=== PATIENT | female | born 1955 | race Caucasian/White ===

== ENCOUNTER 2020-07-08 07:07 | Emergency (ER) | payer BC, SELFPAY ==
--- OUTSIDE RECORDS SUMMARY | 2020-07-08 07:08 | XMS REPORT | Clinical Summary ---
:1955 Author Organization [facility] Address [address] [place] [address] Care Team Providers Name Role Phone Srinivasan Stevenson MD Primary Care Provider Allergies No Known Active Allergies Medications Medication Sig Dispensed Refills Start Date End Date Status levothyroxine Take 75 mcg by 0 A ctive (SYNTHROID, LEVOXYL) 75 mouth. mcg tablet melatonin 10 mg capsule Take 3 mg by 0 Active mouth. NEUPRO 8 mg/24 hour 0 08/01/2017 Active patch 24 hour dexmethylphenidate XR TK 2 CS PO QAM. 0 05/26/2017 Active (FOCALIN XR) 10 MG 24 hr capsule AmANTadine (SYMMETREL) TK ONE C PO BID 3 07/01/2017 Active 100 mg capsule FOR 1 WEEK THEN TID D THEREAFTER AZILECT 1 mg tablet TK 1 T PO QD 2 08/01/2017 Active carbidopa-levodopa TK 1 AND 1/2 TS 3 07/28/2017 Active (SINEMET) 25-100 mg per PO FID tablet entacapone (COMTAN) 200 TK 1 T PO 6 3 07/01/2017 Active mg tablet TIMES D Active Problems Problem Noted Date Elevated hemoglobin A1c 08/05/2017 Overview: Concerned about previous numbers being high Last Assessment & Plan: Recheck A1c and follow up in 3 months Parkinson disease Overview: dx 4 years ago; responding to treatment; aaliyah - seebijan Monk - Last Assessment & Plan: Per neurology Elevated BP without diagnosis of hypertension Overview: was on bp meds and came off with the study drug Last Assessment & Plan: Provided log; monitor bp and will restart losartan if bp is >140/90 Disease of thyroid gland Overview: levo 75mcg dose has been stable. Last Assessment & Plan: 1. L-thyroxine per orders. 2. Recheck thyroid function tests 3. Instructed not to take multivitamins or iron within 4 hours of taking thyroid medications. Surgical History Surgery Date Site/Laterality Comments COLONOSCOPY 08/02/2011 - 08/01/2012 overdue fo r repeat - Medical History Medical History Date Comments Parkinson disease (HCC) dx 4 years ago; responding to treatment; sinemet - sees Dr. Monk - Disease of thyroid gland levo 75mcg dose has been stable. Hypertension was on bp meds and c julianna off with the study drug Family History Medical History Relation Name Comments Colon cancer Father Lung cancer Mother stage 4 - Relation Name Status Comments Father Mother Social History Tobacco Use Types Packs/Day Years Used Date Never Smoker Smokeless Tobacco: Never Used Alcohol Use Drinks/Week oz/Week Comments Yes 5 Glasses of wine 5.0 Sex Assigned at Date Recorded Not on file Last Filed Vital Signs Not on file Plan of Treatment Health Maintenance Due Date Last Done Comments CERVICAL CANCER SCREENING 1978 BREAST CANCER SCREENING 2007 COLONOSCOPY SCREENING 2007 SHINGLES VACCINES (#1) 2007 INFLUENZA VACCINE 03/02/2020 Results Not on fileafter 07/08/2019 (Work) Advance Directives For more information, please contact: [phone] Type Date Recorded 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
--- OUTSIDE RECORDS SUMMARY | 2020-07-08 07:09 | XMS REPORT | Continuity of Care Document ---
:1955 Author Organization [facility] t Address [address] [place] [address] Care Team Providers Name Role Phone Srinivasan Stevenson MD Primary Care Physician Rito Chávez Attending Clinician Augusto JAUREGUI P Attending Clinician Halie JAUREGUI Attending Clinician 1, Fellow Attending Clinician MIRANDA Attending Clinician Unavailable MIRANDA Admitting Clinician Unavailable Problems Condition Condition Condition Status Onset Resolution Last Treating Co mments Source Name Details Category Date Date Treatment Clinician Date Parkinson' Parkinson' Disease Active [facility] disease s disease 02-17 Luke s - with EBS with EBS 00:00: Medica l (electrica (electrica 00 Ce nter l brain l brain stimulatio stimulatio n) n) Parkinson Parkinson Disease Active [facility] Center Elevated Elevated Disease Active Overview: Carlos medina hemoglobin hemoglobin 1-04 Concerned [facility] A1c A1c 00:00: about st 00 previous numbers being highLast Assessmen t & Plan: Recheck A1c and follow up in 3 months Elevated Elevated Disease Active Overview: Carlos medina BP without BP without was on bp [facility]i diagnosis diagnosis meds and st of of came off hypertensi hypertensi with the on on study drugLast Assessmen t & Plan: Provided log; monitor bp and will restart losartan if bp is >140/90 Disease of Disease of Disease Active Overview : [place] thyroid thyroid levo Methodi gland gland 75mcg st dose has been stable. Last Assessmen t & Plan: 1. L-thyroxi ne per orders.2. Recheck thyroid function tests3. Instructe d not to take multivita mins or iron within 4 hours of taking thyroid medicatio ns. Allergies, Adverse Reactions, Alerts This patient has no known allergies or adverse reactions. Family History Family Member Diagnosis Comments Start Date Stop Date Source Natural father Colon cancer [place] [facility] Natural mother Lung cancer [facility] ethodi Social History Social Habit Start Date Stop Date Quantity Comments Source Sex Assigned At [facility] Tobacco use and 2018-03-03 2018-03-03 Never used [facility] - exposure 00:00:00 00:00:00 [facility] Alcohol intake 2018-03-03 2018-03-03 Current drinker [facility] - 00:00:00 00:00:00 of alcohol [facility] Center (finding) Smoking Status Start Date Stop Date Source Never smoker [facility] Medications Ordered Filled Start Stop Current Ordering Indication Dosage Frequency Signature Comments Components Source Medication Medication Date Date Medication? Clinician (SIG) Name Name rasagiline Yes QD Take by [facility] (AZILECT) 1 03-02 mouth [facility] - mg Tab 16:26: daily. Medical [address] [place] [address] rotigotine Yes 8mg QD Place [address] (NEUPRO) 8 03-02 onto the [facility] - mg/24 hour 16:26: skin Medical PT24 24 daily. Center levothyroxi Yes 50ug Take [address] ne 8- mcg by Lucio - (SYNTHROID, 16:26: mouth Medic al LEVOTHROID) 24 Every Center 50 MCG morning on tablet an empty stomach. carbidopa-l Yes 1{tbl} Take [address] evodopa 03-02 tablet by Lucio - (SINEMET) 16:26: mouth Medical 25-100 mg 24 every 2 Center per tablet (two) hours . entacapone Yes 200mg Q.[id number] Take [address] (COMTAN) 03-02 [id number] mg by Luke s - 200 mg 16:26: 7D mouth 6 Medical tablet 24 (six) Center times daily. carbidopa-l Yes parkinsonis 1{tbl} QD Take [address] evodopa 8- m tablet by [facility] - (SINEMET 16:26: mouth Medical CR) 50-200 24 nightly. Cente r mg per tablet melatonin 3 Yes 6mg QD Take [address] mg Tab 03-02 by mouth [facility] - tablet 16:26: nightly . Medica l 24 Center loratadine Yes allergic 10mg QD Take [address] (CLARITIN) 03-02 rhinitis by mouth L ukes - 10 mg 16:26: daily. Medical tablet 24 Center amoxicillin Yes Q.5D Take by [facility] /potassium 03-02 mouth 2 [facility] - clav 15:56: (two) Medical (AUGMENTIN 21 times Center ORAL) daily. levothyroxi Yes 75ug Take 75 [address]on ne 1-04 mcg by [facility]i (SYNTHROID, 13:23: mouth. st LEVOXYL) 75 18 mcg tablet melatonin Yes 3mg Take 3 mg Johanny ston 10 mg 1-04 by mouth. [facility]i capsule 13:23: st 18 NEUPRO 8 2016-08 Yes Srinivasa mg/24 hour 2-31 Methodi patch 24 00:00: st hour 00 AZILECT 1 2016-08 Yes TK 1 T PO Johanny ston mg tablet 2-31 QD Methodi 00:00: st 00 carbidopa-l 2016-08 Yes TK 1 AND Carlos [place] evodopa 2-27 1/2 TS PO Methodi (SINEMET) 00:00: FID st 25-100 mg 00 per tablet AmANTadine 2016-08 Yes TK ONE C Johanny ston (SYMMETREL) 1-30 PO BID Metho di 100 mg 00:00: FOR [address] capsule 00 THEN TID D THEREAFTER entacapone 2016-08 Yes TK 1 T PO [place] (COMTAN) 1-30 6 TIMES D Method i 200 mg 00:00: st tablet 00 dexmethylph 2016-08 Yes TK 2 CS PO Bernabe enidate XR 0-25 QAM. Methodi (FOCALIN 00:00: st XR) 10 MG 00 24 hr capsule Procedures This patient has no known procedures. Plan of Care Planned Activity Planned Date Details Comments Source Future Scheduled Test 2020-04-[address] [facility] - 00:00:00 (#1) [code = [facility] Center INFLUENZA VACCINE (#1)] Future Scheduled Test 2020-03-02 INFLUENZA VACCINE [place] [facility] 00:00:00 [code = INFLUENZA VACCINE] Future Scheduled Test 2007 BREAST CANCER [place] [facility] 00:00:00 SCREENING [code = BREAST CANCER SCREENING] Future Scheduled Test 2007 COLONOSCOPY [place] [facility] 00:00:00 SCREENING [code = COLONOSCOPY SCREENING] Future Scheduled Test 2007 SHINGLES VACCINES [place] [facility] 00:00:00 (#1) [code = SHINGLES VACCINES (#1)] Future Scheduled Test [address] [facility] - 00:00:00 (procedure) [code = [facility] 86019507] Future Scheduled Test 1978 Screening for [place] [facility] 00:00:00 malignant neoplasm of cervix (procedure) [code = 898132924] Future Scheduled Test [facility] malignant neoplasm Medical C enter of cervix (procedure) [code = 225505771] Future Scheduled Test [facility] malignant neoplasm Medical C enter of breast (procedure) [code = 302800885] Future Scheduled Test 1955 [facility] malignant neoplasm Medical C enter of colon (procedure) [code = 738122165] Future Appointment 2020-07-[address] [facility] - 13:00:00 , [address] [facility] [address], [address], [place] [address] Future Appointment 2020-07-[address] [facility] - 13:00:00 , [address] [facility] [address], [address], [place] [address] Encounters Start End Encounter Admission Attending Care Care Encounter Source Date/Time Date/Time Type Type Clinicians Facility Department ID 2020-06-21 2020-06-21 Office VEE Tuttle 1.2.840.114 [id number] 14:06:57 16:16:33 Visit Christopher AMBULATOR [id number] Rito Y 0.2.7.2.686 [id number] 2020-06-21 2020-06-21 Office VEE Casas 1.2.840.114 [id number] 12:31:48 12:41:48 Visit Christopher AMBULATOR 350.1.13.21 P Y 0.2.7.2.686 [id number] 2020-05-23 2020-05-23 Office VEE Casas 1.2.840.114 [id number] 10:24:43 11:57:55 Visit Christopher AMBULATOR 350.1.13.21 P Y 0.2.7.2.686 [id number] 300 2020-05-22 2020-05-22 Office VioletpauVEE 1.2.840.114 [id number] 09:52:20 13:31:33 Visit Kalia AMBULATOR 350.1.13.21 Y 0.2.7.2.686 [id number] 800 2020-05-02 2020-05-02 Office VEE Casas 1.2.840.114 [id number] 10:25:40 10:35:40 Visit Christopher AMBULATOR 350.1.13.21 P Y 0.2.7.2.686 [id number] 300 2020-02-21 2020-02-21 Office VEE Ambrose 1.2.840.114 [id number] 10:55:48 16:32:49 Visit Kalia AMBULATOR 350.1.13.21 Y 0.2.7.2.686 [id number] 800 2020-01-04 2020-01-04 Office VEE Ambrose 1.2.840.114 [id number] 10:47:05 13:10:50 Visit Kalia AMBULATOR 350.1.13.21 Y 0.2.7.2.686 [id number] 800 2019-11-22 2019-11-22 Office VioletpauVEE 1.2.840.114 [id number] 07:53:06 10:26:01 Visit Kalia AMBULATOR 350.1.13.21 Y 0.2.7.2.686 [id number] 800 2019-10-04 2019-10-04 Office VEE Ambrose 1.2.840.114 [id number] 10:20:28 13:44:29 Visit Kalia AMBULATOR 350.1.13.21 Y 0.2.7.2.686 [id number] 800 2019-09-20 2019-09-20 Office 1, Neuro BCM 1.2.840.114 [id number] 09:48:24 13:20:20 Visit Fellow AMBULATOR 350.1.13.21 Y 0.2.7.2.686 [id number] 800 2019-09-13 2019-09-13 Office VEE Ambrose 1.2.840.114 [id number] 09:48:16 13:56:32 Visit Kalia AMBULATOR 350.1.13.21 Y 0.2.7.2.686 [id number] 800 2019-09-06 2019-09-06 Office VEE Ambrose 1.2.840.114 [id number] 09:55:15 11:25:00 Visit Kalia AMBULATOR 350.1.13.21 Y 0.2.7.2.686 [id number] 800 2019-08-28 2019-08-28 Office VEE Ambrose 1.2.840.114 [id number] 11:18:25 11:33:25 Visit Kalia AMBULATOR 350.1.13.21 Y 0.2.7.2.686 [id number] 800 2019-08-24 2019-08-24 Office VEE Ambrose 1.2.840.114 [id number] 09:04:50 09:34:50 Visit Kalia AMBULATOR 350.1.13.21 Y 0.2.7.2.686 [id number] 800 2019-08-23 2019-08-23 Office VEE Ambrose 1.2.840.114 [id number] 08:16:43 08:46:43 Visit Kalia AMBULATOR 350.1.13.21 Y 0.2.7.2.686 [id number] 800 2019-04-28 2019-04-28 Office VEE Ambrose 1.2.840.114 [id number] 14:19:30 15:49:19 Visit Kalia AMBULATOR 350.1.13.21 Y 0.2.7.2.686 [id number] Results Test Description Test Time Test Comments [facility] 2018[facility]03[facility]02 [facility] FINAL REPORT PATIENT ID: WITHOUT CONTRAST 11:42:[id number] head without contrast [facility] protocol 03/02/2018 11:39 AM CLINICAL HISTORY: DBS leads TECHNIQUE: With zero gantry angle, helical axial [address] images through the head were obtained. This examination was performed according to our departmental dose optimization program, which includes automated exposure control, adjustment of the mA and/or kV according to patient size, and/or use of iterated reconstruction technique. COMPARISON: 02/16/2018 FINDINGS: There is no hemorrhage, extra-axial collection, mass, hydrocephalus, or midline shift. Bilateral deep brain stimulator electrodes terminate just lateral to the thalamomesencephalic junction bilaterally. There is generalized parenchymal volume loss. The visualized paranasal sinuses and mastoid air cells are well aerated. The skull is intact. IMPRESSION: Deep brain stimulator electrode placement as discussed. Signed: Jason Trevizo MDReport Verified Date/Time: 03/02/2018 11:42:17 Reading Location: [address] Neuro Reading Room ALYSIS W/ REFLEX URINE CULTURE 2018-02-17 18:46:00 Test Item Value Reference Range Interpretation Comme nts COLOR (BEAKER) (test code = 470) Yellow CLARITY (BEAKER) (test code = 469) Clear SPECIFIC GRAVITY UA (BEAKER) (test code = 468) 1.022 1.001-1 .035 PH UA (BEAKER) (test code = 467) 5.5 5.0-8.0 PROTEIN UA (BEAKER) (test code = 464) Negative Negative GLUCOSE UA (BEAKER) (test code = 365) 50 mg/dL Negative A KETONES UA (BEAKER) (test code = 371) 20 mg/dL Negative A BILIRUBIN UA (BEAKER) (test code = 462) Negative Negative BLOOD UA (BEAKER) (test code = 461) Negative Negative NITRITE UA (BEAKER) (test code = 465) Negative Negative LEUKOCYTE ESTERASE UA (BEAKER) (test code = 466) Negative Negat karol UROBILINOGEN UA (BEAKER) (test code = 463) 0.2 mg/dL 0.2-1.0 RBC UA (BEAKER) (test code = 519) < /HPF WBC UA (BEAKER) (test code = 520) < /HPF BACTERIA (BEAKER) (test code = 517) Rare SOURCE(BEAKER) (test code = 2795) BASIC METABOLIC [id number] 18:45:00 Test Item Value Reference Range Interpretation Comments SODIUM (BEAKER) 134 meq/L 136-145 L (test code = 381) POTASSIUM (BEAKER) 3.8 meq/L 3.5-5.1 (test code = 379) CHLORIDE (BEAKER) 106 meq/L 98-107 (test code = 382) CO2 (BEAKER) (test 20 meq/L 22-29 L code = 355) BLOOD UREA NITROGEN 14 mg/dL 7-21 (BEAKER) (test code = 354) CREATININE (BEAKER) 0.72 mg/dL 0.57-1.25 (test code = 358) GLUCOSE RANDOM 121 mg/dL 70-105 H (BEAKER) (test code = 652) CALCIUM (BEAKER) 9.1 mg/dL 8.4-10.2 (test code = 697) EGFR (BEAKER) (test 82 mL/min/1.73 ESTIMA MIGUEL GFR IS code = 1092) sq m NOT ACCURATE CREATININE CLEARANCE IN PREDICTING GLOMERULAR FILTRATION RATE . ESTIMATED GFR I S NOT APPLICABLE FOR DIALYSIS PATIEN TS. CBC W/PLT COUNT & AUTO [id number] 11:36:00 Test Item Value Reference Range Interpretation Comments WHITE BLOOD CELL COUNT (BEAKER) 10.6 K/ L 3.5-10.5 H (test code = 775) RED BLOOD CELL COUNT (BEAKER) 4.53 M/ L 3.93-5.22 (test code = 761) HEMOGLOBIN (BEAKER) (test code = 12.4 GM/DL 11.2-15.7 410) HEMATOCRIT (BEAKER) (test code = 38.4 % 34.1-44.9 411) MEAN CORPUSCULAR VOLUME (BEAKER) 84.8 fL 79.4-94.8 (test code = 753) MEAN CORPUSCULAR HEMOGLOBIN 27.4 pg 25.6-32.2 (BEAKER) (test code = 751) MEAN CORPUSCULAR HEMOGLOBIN CONC 32.3 GM/DL 32.2-35.5 (BEAKER) (test code = 752) RED CELL DISTRIBUTION WIDTH 14.0 % 11.7-14.4 (BEAKER) (test code = 412) PLATELET COUNT (BEAKER) (test 233 K/CU MM 150-450 code = 756) MEAN PLATELET VOLUME (BEAKER) 10.2 fL 9.4-12.3 (test code = 754) NUCLEATED RED BLOOD CELLS 0 /100 WBC 0-0 (BEAKER) (test code = 413) NEUTROPHILS RELATIVE PERCENT 89 % (BEAKER) (test code = 429) LYMPHOCYTES RELATIVE PERCENT 5 % (BEAKER) (test code = 430) MONOCYTES RELATIVE PERCENT 6 % (BEAKER) (test code = 431) EOSINOPHILS RELATIVE PERCENT 0 % (BEAKER) (test code = 432) BASOPHILS RELATIVE PERCENT 0 % (BEAKER) (test code = 437) NEUTROPHILS ABSOLUTE COUNT 9.41 K/ L 1.56-6.13 H (BEAKER) (test code = 670) LYMPHOCYTES ABSOLUTE COUNT 0.55 K/ L 1.18-3.74 L (BEAKER) (test code = 414) MONOCYTES ABSOLUTE COUNT (BEAKER) 0.61 K/ L 0.24-0.36 H (test code = 415) EOSINOPHILS ABSOLUTE COUNT 0.01 K/ L 0.04-0.36 L (BEAKER) (test code = 416) BASOPHILS ABSOLUTE COUNT (BEAKER) 0.02 K/ L 0.01-0.08 (test code = 417) IMMATURE GRANULOCYTES-RELATIVE 0 % 0-1 PERCENT (BEAKER) (test code = 2801) CT, BRAIN, WITHOUT [id number] 15:11:00FINAL REPORT CT head without contrast 02/16/2018 3:09 PM CLINICAL HISTORY: Parkinsons dz, typical, levodopa responsives/p DBS TECHNIQUE: Axial noncontrast CT images through the head were obtained. This examination was performed according to our departmental dose optimization program, which includes automated exposure control, adjustment of the mA and/or kV according to patient size, and/or use of iterated reconstruction technique. COMPARISON: 02/16/2018 at 0801 FINDINGS: Newly placed deep brain stimulator electrodes terminate in the anteromedial temporal lobes bilaterally. There is no hemorrhage, mass, hydrocephalus, or midline shift. There is small volume pneumocephalus without mass effect. There is no concerning subgaleal collection. There is chronic left sphenoid sinusitis. The remaining visualized paranasal sinuses and tympanomastoid cavities are well- aerated. The skull is intact. IMPRESSION: Bilateral deep brain stimulator electrode placement as discussed. Signed: Jason Trevizo Verified Date/Time: 02/16/2018 15:11:14 Reading Location: [address] Neuro Reading Room WORKFORCE ADVISOR IN OR/30 MINUTE [id number] 14:08:00Reason for exam:- >Parkinsons DiseaseFINAL REPORT Fluoroscopy and CT stereotaxis 583 views intraoperative 02/16/2018 2:07 PM CLINICAL HISTORY: Instrument localization COMPARISON: None available IMPRESSION: Please correlate imaging report findings with the procedure note prepared by Dr. Martinez, as an intra-procedure imaging consultation was not requested. Reported fluoroscopy time: 19.2 seconds. Reported DLB: 715.16 mGycm. Signed: Jason Trevizo Verified Date/Time: 02/16/2018 14:08:01 Reading Location: [address] Neuro Reading Room CT, BRAIN, WITHOUT [id number] 08:16:00Please perform stealth protocol with 1mm cutsFINAL REPORT CT head without contrast Stealth protocol 02/16/2018 8:15 AM CLINICAL HISTORY: parkinson disease TECHNIQUE: With zero gantry angle, helical axial [address] images through the head were obtained. This examination was performed according to our departmental dose optimization program, which includes automated exposure control, adjustment of the mA and/or kV according to patient size, and/or use of iterated reconstruction technique. COMPARISON: MRI brain 02/04/2018 FINDINGS: There is no hemorrhage, extra-axial collection, mass, hydrocephalus, or midline shift.There is generalized parenchymal volume loss. There is chronic left sphenoid sinusitis. The remaining visualized paranasal sinuses and tympanomastoid cavities are well-aerated. The orbits, face, and skull are unremarkable. IMPRESSION: Stealth neuronavigation study. Signed: Jason Trevizo Verified Date/Time: 02/16/2018 08:16:15 Reading Location: [address] Neuro Reading Room MR, BRAIN, WITHOUT [id number] 15:03:00FINAL REPORT MRI Brain without contrast Clinical History: Parkinson's diseaseTechnique: MRI of the brain utilizing the DBS protocol including diffusion tensor imaging, with axial T2, FLAIR, GRE, DWI; sagittal and coronal T1-weighted images. Comparisons: None Findings: There is no evidence of acute infarct or hemorrhage. There is mild periventricular and subcortical white matter T2 hyperintensity, which is nonspecific but compatible with chronic microvascular ischemic change. There is generalized parenchymal volume loss without hydrocephalus, midline shift, or apparent mass effect. There are no extra-axial fluid collections. The craniocervical junction is preserved. The major intracranial flow-voids appear patent. There is an air-fluid level in the left sphenoid sinus. IMPRESSION: No evidence of acute infarct, hemorrhage, or hydrocephalus. Acute sphenoid sinusitis. Signed:Ryder Welshort Verified Date/Time: 02/04/2018 15:03:16 Reading Location: [facility] Radiology Reading Room BASI METABOLIC [id number] 13:00:00 Test Item Value Reference Range Interpretation Comments SODIUM (BEAKER) 139 meq/L 136-145 (test code = 381) POTASSIUM (BEAKER) 4.3 meq/L 3.5-5.1 (test code = 379) CHLORIDE (BEAKER) 106 meq/L 98-107 (test code = 382) CO2 (BEAKER) (test 28 meq/L 22-29 code = 355) BLOOD UREA NITROGEN 23 mg/dL 7-21 H (BEAKER) (test code = 354) CREATININE (BEAKER) 0.89 mg/dL 0.57-1.25 (test code = 358) GLUCOSE RANDOM 96 mg/dL 70-105 (BEAKER) (test code = 652) CALCIUM (BEAKER) 9.4 mg/dL 8.4-10.2 (test code = 697) EGFR (BEAKER) (test 64 mL/min/1.73 ESTIMA MIGUEL GFR IS code = 1092) sq m NOT ACCURATE CREATININE CLEARANCE IN PREDICTING GLOMERULAR FILTRATION RATE . ESTIMATED GFR I S NOT APPLICABLE FOR DIALYSIS PATIEN TS. URINALYSIS W/ REFLEX URINE [id number] 11:28:00 Test Item Value Reference Range Interpretation Comments COLOR (BEAKER) (test code = 470) Yellow CLARITY (BEAKER) (test code = 469) Clear SPECIFIC GRAVITY UA (BEAKER) (test 1.014 1.001-1.035 code = 468) PH UA (BEAKER) (test code = 467) 6.0 5.0-8.0 PROTEIN UA (BEAKER) (test code = Negative Negative 464) GLUCOSE UA (BEAKER) (test code = Negative Negative 365) KETONES UA (BEAKER) (test code = Negative Negative 371) BILIRUBIN UA (BEAKER) (test code = Negative Negative 462) BLOOD UA (BEAKER) (test code = 461) Negative Negative NITRITE UA (BEAKER) (test code = Negative Negative 465) LEUKOCYTE ESTERASE UA (BEAKER) Moderate Negative A (test code = 466) UROBILINOGEN UA (BEAKER) (test code 0.2 mg/dL 0.2-1.0 = 463) RBC UA (BEAKER) (test code = 519) 7 /HPF WBC UA (BEAKER) (test code = 520) 5 /HPF MUCUS (BEAKER) (test code = 1574) Few SQUAMOUS EPITHELIAL (BEAKER) (test 3 /HPF code = 516) SOURCE(BEAKER) (test code = 2795) RAD, CHEST, 2 [id number] 11:25:00Reason for Exam:->parkinson's disease FINAL REPORT TECHNIQUE: Frontal and lateral views of the chest. INDICATION: 63-year-old woman with Parkinson's disease. COMPARISON: None. FINDINGS: LINES/TUBES: None. LUNGS: Thelungs are well inflated and clear. PLEURA: No pleural effusion or pneumothorax. HEART AND MEDIASTINUM: The cardiomediastinal silhouette is within normal limits. Atherosclerotic calcifications in the tortuous thoracic aorta. SOFT TISSUES AND BONES: Degenerative changes of the visualized spine. Soft tissues are unremarkable. IMPRESSION:No acute cardiopulmonary abnormalities. Signed: Douglas Dickens MDR eport Verified Date/Time: 02/04/2018 11:25:47 Reading Location: [address] Radiology Reading Room BASIC METABOLIC [id number] 11:10:00 Test Item Value Reference Range Interpretation Comments SODIUM (BEAKER) 138 meq/L 136-145 (test code = 381) POTASSIUM (BEAKER) 4.7 meq/L 3.5-5.1 (test code = 379) CHLORIDE (BEAKER) 105 meq/L 98-107 (test code = 382) CO2 (BEAKER) (test 28 meq/L 22-29 code = 355) BLOOD UREA NITROGEN 24 mg/dL 7-21 H (BEAKER) (test code = 354) CREATININE (BEAKER) 0.92 mg/dL 0.57-1.25 (test code = 358) GLUCOSE RANDOM 93 mg/dL 70-105 (BEAKER) (test code = 652) CALCIUM (BEAKER) 9.5 mg/dL 8.4-10.2 (test code = 697) EGFR (BEAKER) (test 62 mL/min/1.73 ESTIMA MIGUEL GFR IS code = 1092) sq m NOT ACCURATE CREATININE CLEARANCE IN PREDICTING GLOMERULAR FILTRATION RATE . ESTIMATED GFR I S NOT APPLICABLE FOR DIALYSIS PATIEN TS. PROTHROMBIN [id number] 10:46:00 Test Item Value Reference Range Interpretation Comments PROTIME (BEAKER) (test code = 13.3 seconds 11.7-14.7 759) INR (BEAKER) (test code = 370) 1.0 <=5.9 RECOMMENDED COUMADIN/WARFARIN INR THERAPY RANGESSTANDARD DOSE: 2.0 - 3.0 Includes: PROPHYLAXIS forvenous thrombosis, systemic embolization; TREATMENT for venous thrombosis and/or pulmonary embolus.HIGH RISK: Target INR is 2.5-3.5 for patients with mechanical heart valves.[id number] 10:46:00 Test Item Value Reference Range Interpretation Comments PROTIME (BEAKER) (test code = 13.3 seconds 11.7-14.7 759) INR (BEAKER) (test code = 370) 1.0 <=5.9 PARTIAL THROMBOPLASTIN TIME 33.4 seconds 22.5-36.0 (BEAKER) (test code = 760) RECOMMENDED COUMADIN/WARFARIN INR THERAPY RANGESSTANDARD DOSE: 2.0 - 3.0 Includes: PROPHYLAXIS forvenous thrombosis, systemic embolization; TREATMENT for venous thrombosis and/or pulmonary embolus.HIGH RISK: Target INR is 2.5-3.5 for patients with mechanical heart valves.CBC W/PLT COUNT & AUTO DIFFERENTIAL 2018-02-04 10:38:00 Test Item Value Reference Range Interpretation Comments WHITE BLOOD CELL COUNT (BEAKER) 5.2 K/ L 3.5-10.5 (test code = 775) RED BLOOD CELL COUNT (BEAKER) 4.94 M/ L 3.93-5.22 (test code = 761) HEMOGLOBIN (BEAKER) (test code = 13.1 GM/DL 11.2-15.7 410) HEMATOCRIT (BEAKER) (test code = 42.1 % 34.1-44.9 411) MEAN CORPUSCULAR VOLUME (BEAKER) 85.2 fL 79.4-94.8 (test code = 753) MEAN CORPUSCULAR HEMOGLOBIN 26.5 pg 25.6-32.2 (BEAKER) (test code = 751) MEAN CORPUSCULAR HEMOGLOBIN CONC 31.1 GM/DL 32.2-35.5 L (BEAKER) (test code = 752) RED CELL DISTRIBUTION WIDTH 14.2 % 11.7-14.4 (BEAKER) (test code = 412) PLATELET COUNT (BEAKER) (test 227 K/CU MM 150-450 code = 756) MEAN PLATELET VOLUME (BEAKER) 9.9 fL 9.4-12.3 (test code = 754) NUCLEATED RED BLOOD CELLS 0 /100 WBC 0-0 (BEAKER) (test code = 413) NEUTROPHILS RELATIVE PERCENT 61 % (BEAKER) (test code = 429) LYMPHOCYTES RELATIVE PERCENT 26 % (BEAKER) (test code = 430) MONOCYTES RELATIVE PERCENT 10 % (BEAKER) (test code = 431) EOSINOPHILS RELATIVE PERCENT 2 % (BEAKER) (test code = 432) BASOPHILS RELATIVE PERCENT 1 % (BEAKER) (test code = 437) NEUTROPHILS ABSOLUTE COUNT 3.16 K/ L 1.56-6.13 (BEAKER) (test code = 670) LYMPHOCYTES ABSOLUTE COUNT 1.33 K/ L 1.18-3.74 (BEAKER) (test code = 414) MONOCYTES ABSOLUTE COUNT (BEAKER) 0.52 K/ L 0.24-0.36 H (test code = 415) EOSINOPHILS ABSOLUTE COUNT 0.09 K/ L 0.04-0.36 (BEAKER) (test code = 416) BASOPHILS ABSOLUTE COUNT (BEAKER) 0.04 K/ L 0.01-0.08 (test code = 417) IMMATURE GRANULOCYTES-RELATIVE 1 % 0-1 PERCENT (BEAKER) (test code = 3481)
--- OUTSIDE RECORDS SUMMARY | 2020-07-08 07:09 | XMS REPORT | Clinical Summary ---
:1955 Author Organization [facility] Address [address] [place] [address] Care Team Providers Name Role Phone Isamar Green Primary Care Provider Allergies No Known Allergies Medications Medication Sig Dispensed Refills Start Date End Date Status rasagiline (AZILECT) 1 Take by mouth 0 Active mg Tab daily. rotigotine (NEUPRO) 8 Place 8 mg onto 0 Active mg/24 hour PT24 the skin daily. levothyroxine Take 50 mcg by 0 A ctive (SYNTHROID, LEVOTHROID) mouth Every 50 MCG tablet morning on an empty stomach. carbidopa-levodopa Take 1 tablet by 0 Active (SINEMET) 25-100 mg per mouth every 2 tablet (two) hours . entacapone (COMTAN) 200 Take 200 mg by 0 Active mg tablet mouth 6 (six) times daily. carbidopa-levodopa Take 1 tablet by 0 Active (SINEMET CR) 50-200 mg mouth nightly. per tabletIndications: parkinsonism melatonin 3 mg Tab Take 6 mg by 0 Active tablet mouth nightly . loratadine (CLARITIN) Take 10 mg by 0 Active 10 mg mouth daily. tabletIndications: allergic rhinitis amoxicillin/potassium Take by mouth 2 0 Active clav (AUGMENTIN ORAL) (two) times daily. 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/2018 Parkinson's disease 02/16/2018 Parkinson disease 02/16/2018 Social History Tobacco Use Types Packs/Day Years Used Date Never Smoker Smokeless Tobacco: Never Used Alcohol Use Drinks/Week oz/Week Comments Yes 8 Glasses of wine 8.0 Sex Assigned at Date Recorded Not on file Last Filed Vital Signs Not on file Plan of Treatment Date Type Specialty Care Team Description 07/15/2020 Hospital Encounter Neal Casas MD [address] [facility] [facility] [address] [place], [place] [address] [phone] 07/15/2020 Surgery Neal Casas INTERSTIM Patrick, MD [address] [facility] [facility] [address], [address] [place], [place] [address] [phone] Health Maintenance Due Date Last Done Comments BREAST CANCER SCREENING 1955 COLON CANCER SCREENING COLONOSCOPY 1955 CERVICAL CANCER SCREENING PAP ONLY (Age 21-65) 1978 LIPID PANEL 2002 INFLUENZA VACCINE (#1) 2020 Implants Implanted Type Area Process Area Supervisor Device Shelf Model / Identifier Expiration Serial / Date Lot Cover Gregory Hole Guardian 6010ans - [id number] Fracture/ Right: [employer] KATIE 01/13/2020 6010ANS / Implanted: Qty: 1 on 02/16/2018 by Harvey Burden MD at [facility] Fixation Head MED:NEUROMODULAT / ION [id number] Cover Jhonathan Hole Guardian 6010ans - [id number] Fracture/ Left: [facility] KATIE 01/10/2020 6010ANS / Implanted: Qty: 1 on 02/16/2018 by Harvey Burden MD at [facility] [employer] MED:NEUROMODULAT / ION [id number] Imp Drctnl Lead 1.7amo68am 1.5 6173ans - [id number] Neuro Right: [facility] KATIE 10/01/2019 6173ANS / Implanted: Qty: 1 on 02/16/2018 by Harvey Burden MD at [facility] Head MED:NEUROMODULAT [id number] / ION Imp Drctnl Lead [id number] 1.5 6173ans - [id number] Neuro Left: [facility] KATIE 10/01/2019 6173ANS / Implanted: Qty: 1 on 02/16/2018 by Harvey Burden MD at [facility] Head MED:NEUROMODULAT [id number] / ION Ext Flex Dbs System 8ch 60cm 6372ans - [id number] Neuro Left: ST KATIE 08/09/2019 6372ANS / Implanted: Qty: 1 on 03/02/2018 by Harvey Burden MD at [facility] Chest MED:NEUROMODULAT [id number] / ION Ext Flex Dbs System 8ch 60cm 6372ans - [id number] Neuro Left: ST KATIE 09/29/2018 6372ANS / Implanted: Qty: 1 on 03/02/2018 by Harvey Burden MD at [facility] Chest MED:NEUROMODULAT [id number] / ION Implant Infinity 7 Ipg 6662ans - [id number] Pain Left: ST KATIE 10/22/2019 6662ANS / Implanted: Qty: 1 on 03/02/2018 by Harvey Burden MD at [facility] Mgmt/Stim Chest MED:NEUROMODULAT [id number] / ulator ION Results Not on fileafter 07/08/2019 Insurance Payer Benefit Plan / Subscriber ID Effective Dates Phone Addre ss Type Group BLUE BCBS PPO POS [id number] 2014-Antonio [phone] [address] [id number] PPO CROSS/BLUE EPO CHOICE t 2 [facility] [id number] Advance Directives For more information, please contact: [phone] Code Status Date Activated Date Inactivated Comments Full Code 02/16/2018 7:56 PM 02/18/2018 10:13 PM This code status was determined by: Patient Full Code 02/16/2018 7:11 AM 02/16/2018 7:56 PM This code status was determined by: Patient
[2020-07-08] MEDS ORDERED: NA CHLORIDE 0.9% 500 ML ONE (08:09)
[2020-07-08] MEDS ORDERED: LIDOCAINE 1% MPF 5 ML VIAL ONE (08:09)
[2020-07-08 08:21] LABS: Absolute Lymphocytes (CBC) 1.1 K/uL (0.7-4.9); Basophils % 0.6 % (0-1.3); Hematocrit 39.3 % (36.0-45.0); Lymphocytes % 20.5 % (15.3-44.8); MPV 8.2 fL (7.6-11.3); RBC Red Blood Cell Count 4.65 M/uL (3.86-4.86)
--- NOTE | 2020-07-08 08:23 | RAD REPORT ---
EXAM DESCRIPTION: CT - Head Brain Wo Cont - 07/08/2020 7:44 am CLINICAL HISTORY: Syncope;Trauma Fall, trauma, head injury COMPARISON: No comparisons TECHNIQUE: All CT scans are performed using dose optimization technique as appropriate and may inclu de automated exposure control or mA/KV adjustment according to patient size. FINDINGS: No intracranial hemorrhage, hydrocephalus or extra-axial fluid collection.Bilateral deep b rain stimulators noted.No areas of brain edema or evidence of midline shift. The paranasal sinuses and mastoids are clear. The calvarium is intact. IMPRESSION: No acute intracranial abnormality.
[2020-07-08 08:32] LABS: Potassium 4.2 mmol/L (3.5-5.1)
--- NOTE | 2020-07-08 08:56 | ER ---
Nurse's Notes [facility] Name: Angela Mac Age: 65 yrs Sex: Female : 1955 Arrival Date: 07/08/2020 Time: 07:08 Bed 7 Private MD: Diagnosis: Facial laceration;Syncope and collapse Presentation: 07/08 07:28 Chief complaint: Spouse and/or significant other states: had near syncopal episode at home this morning. fell and hit right side of face, small laceration to right eyebrow area , pt has hx of Parkinson's and has been having low BP readings in the morning. Coronavirus screen: At this time, the client does not indicate any symptoms associated with coronavirus-19. Ebola Screen: Patient negative for fever greater than or equal to 101.5 degrees Fahrenheit, and additional compatible Ebola Virus Disease symptoms Patient denies exposure to infectious person. Patient denies travel to an Ebola-affected area in the 21 days before illness onset. No symptoms or risks identified at this time. Initial Sepsis Screen: Does the patient meet any 2 criteria? No. Patient's initial sepsis screen is negative. Does the patient have a suspected source of infection? No. Patient's initial sepsis screen is negative. Risk Assessment: Do you want to hurt yourself or someone else? Patient reports no desire to harm self or others. Onset of symptoms was July 08, 2020. 07:28 Method Of Arrival: Ambulatory iw 07:28 Acuity: MARY 3 Triage Assessment: 07:25 General: Appears in no apparent distress. uncomfortable, Behavior is cooperative, bp appropriate for age, anxious. Pain: Complains of pain in head. EENT: No deficits noted. Neuro: Reports a syncopal episode. Cardiovascular: No deficits noted. Respiratory: No deficits noted. GI: No signs and/or symptoms were reported involving the gastrointestinal system. : No signs and/or symptoms were reported regarding the genitourinary system. Derm: No deficits noted. Musculoskeletal: No deficits noted. Historical: - Allergies: 09:05 No Known Allergies; bp - PMHx: 09:05 Parkinsons; bp - Immunization history:: Adult Immunizations up to date. - Social history:: Smoking status: Patient denies any tobacco usage or history of. - Family history:: not pertinent. - Hospitalizations: : No recent hospitalization is reported. Screenin:15 Abuse screen: Denies threats or abuse. Denies injuries from another. bp 07:15 Nutritional screening: No deficits noted. Tuberculosis screening: No symptoms or risk bp factors identified. Fall Risk No fall in past 12 months (0 pts). Secondary diagnosis (15 points) PARKINSON'S. No IV (0 pts). Ambulatory Aid- None/Bed Rest/Nurse Assist (0 pts). Gait- Normal/Bed Rest/Wheelchair (0 pts) Mental Status- Oriented to own ability (0 pts). Total Mcgee Fall Scale indicates No Risk (0-24 pts). Assessment: 07:26 General: SEE TRIAGE NOTE. Neuro: Level of Consciousness is awake, alert, obeys bp commands, Oriented to person, place, time, situation, Appropriate for age. Cardiovascular: Rhythm is sinus rhythm. 08:15 Reassessment: PT RETURNED FROM CT. bp 09:04 Reassessment: PT D/C HOME AMBULATORY WITH FAMILY, DX WITH SYNCOPE AND FACIAL LACERATION.bp Vital Signs: 08:15 BP 168 / 89; Pulse 80; Resp 16; Pulse Ox 100% ; bp 09:05 BP 151 / 78; Pulse 81; Resp 17; Temp 98; Pulse Ox 100% ; bp ED Course: 07:08 Patient arrived in ED. as 07:14 Mitesh Kerr, RN is Primary Nurse. bp 07:15 Minor Fox MD is Attending Physician. rn 07:15 Patient has correct armband on for positive identification. Bed in low position. Call bp light in reach. Side rails up X2. Adult w/ patient. 07:26 Arm band placed on. bp 07:30 Triage completed. iw 07:43 CT Head Brain wo Cont In Process Unspecified. EDMS 08:05 Inserted saline lock: 20 gauge in right antecubital area, using aseptic technique. bp Blood collected. 08:45 Assist provider with laceration repair on head that was 2.5 cm. or less using sutures. bp Set up tray. Performed by Minor Fox MD Dressed with STERI-STRIP Patient tolerated well. 09:00 IV discontinued, intact, bleeding controlled, No redness/swelling at site. Pressure bp dressing applied. Administered Medications: 07:45 Drug: Lidocaine (1 %) 1 vials Volume: 5 ml; Route: Infiltration; bp 08:05 Drug: NS 0.9% 500 ml Route: IV; Rate: bolus; Site: right antecubital; bp 09:09 Follow up: IV Status: Completed infusion; IV Intake: 500ml bp Intake: 09:09 IV: 500ml; Total: 500ml. bp Outcome: 08:56 Discharge ordered by . rn 09:05 Discharged to home ambulatory, with family. bp 09:05 Condition: stable 09:05 Discharge instructions given to patient, family, Instructed on discharge instructions, follow up and referral plans. wound care, Demonstrated understanding of instructions, follow-up care, wound care. 09:08 Patient left the ED. bp Signatures: Dispatcher [employer] Yanelis Robertson Irene, RN RN iw Nieto, Roman, MD MD rn Peltier, Brian, RN RN bp
--- NOTE | 2020-07-08 08:56 | EDPHYS ---
Physician Documentation [facility] Name: Angela Mac Age: 65 yrs Sex: Female : 1955 Arrival Date: 07/08/2020 Time: 07:08 Bed 7 Private MD: ED Physician Minor Fox HPI: 07/08 08:43 This 65 yrs old Female presents to ER via Ambulatory with complaints of rn Syncope, Laceration - eyebrow. 08:43 The patient has experienced syncope. Onset: The symptoms/episode began/occurred just rn prior to arrival. Duration: This was a single episode. Associated injury: Head/face: laceration, 2 cm(s). Associated signs and symptoms: Pertinent negatives: abdominal pain, chest pain, confusion, headache, seizure. Current symptoms: Currently, the patient is not experiencing any symptoms. The patient has not experienced similar symptoms in the past. The patient has not recently seen a physician. Reports has hx of low blood pressure in AM, her PCP is aware of this, attributes it to parkinson's meds. Stood up today, got lightheaded, passed out, + laceration to near right eyebrow, no acute complaints. Denies preceding chest pain/sob/abd pain/vomiting. No change in parkinson's meds. Just saw pcp this past week and had cardiology clearance for surgery next week. . Historical: - Allergies: 09:05 No Known Allergies; bp - PMHx: 09:05 Parkinsons; bp - Immunization history:: Adult Immunizations up to date. - Social history:: Smoking status: Patient denies any tobacco usage or history of. - Family history:: not pertinent. - Hospitalizations: : No recent hospitalization is reported. ROS: 08:43 Constitutional: Negative for fever, chills, and weight loss, Eyes: Negative for injury, rn pain, redness, and discharge, Neck: Negative for injury, pain, and swelling, Cardiovascular: Negative for chest pain, palpitations, and edema, Respiratory: Negative for shortness of breath, cough, wheezing, and pleuritic chest pain, Abdomen/GI: Negative for abdominal pain, nausea, vomiting, diarrhea, and constipation, Back: Negative for injury and pain, : Negative for injury, bleeding, discharge, and swelling, MS/Extremity: Negative for injury and deformity, Skin: + laceration Neuro: Negative for headache, weakness, numbness, tingling, and seizure. Exam: 08:43 Constitutional: This is a well developed, well nourished patient who is awake, alert, rn and in no acute distress. Head/Face: Normocephalic, 2 cm simple laceration lateral to right eye/eyebrow, no actve bleeding, no foreign body identified, no herniation of fat, no bony tenderness or deformity. Eyes: Pupils equal round and reactive to light, extra-ocular motions intact. Lids and lashes normal. Conjunctiva and sclera are non-icteric and not injected. Cornea within normal limits. Mild right periorbital swelling. ENT: dry MM Cardiovascular: Regular rate and rhythm. No pulse deficits. Respiratory: No increased work of breathing, no retractions or nasal flaring. Abdomen/GI: soft, non-tender Skin: Warm, dry MS/ Extremity: Pulses equal, no cyanosis. Neurovascular intact. Full, normal range of motion. Equal circumference. Neuro: Awake and alert, GCS 15, oriented to person, place, time, and situation. Cranial nerves II-XII grossly intact. Motor strength 5/5 in all extremities. Sensory grossly intact. Cerebellar exam normal. Vital Signs: 08:15 BP 168 / 89; Pulse 80; Resp 16; Pulse Ox 100% ; bp 09:05 BP 151 / 78; Pulse 81; Resp 17; Temp 98; Pulse Ox 100% ; bp Laceration: 08:43 Wound Repair of 2cm ( 0.8in ) subcutaneous laceration to right periocular region. rn Distal neuro/vascular/tendon intact. Anesthesia: Wound infiltrated with 2 mls of 1% lidocaine. Wound prep: Moderate cleansing with betadine by me, Wound explored extensively. Skin closed with 4 5-0 fast absorbing gut using interrupted sutures and sterile technique. Dressed with steri-strips. Patient tolerated well. MDM: 07:15 Patient medically screened. rn 08:43 Differential Diagnosis: vasovagal episode, orthostatic hypotension, syncope, rn dehydration. Data reviewed: vital signs, nurses notes, lab test result(s), EKG, radiologic studies, CT scan, and as a result, I will discharge patient. 08:55 Counseling: I had a detailed discussion with the patient and/or guardian regarding: the rn historical points, exam findings, and any diagnostic results supporting the discharge/admit diagnosis, lab results, radiology results, the need for outpatient follow up, to return to the emergency department if symptoms worsen or persist or if there are any questions or concerns that arise at home. Response to treatment: the patient's symptoms have markedly improved after treatment, the patient's condition has returned to base line, the patient is now symptom free, and as a result, I will discharge patient. Special discussion: Based on the patient's history, exam and DX evaluation, there is no indication for emergent intervention or inpatient [place]. It is understood by the patient/guardian that if the SXs persist or worsen they need to return immediately for re-evaluation. I discussed with the patient/guardian in detail that at this point there is no indication for admission to the hospital. It is understood, however, that if the symptoms persist or worsen the patient needs to return immediately for re-evaluation. 07/08 07:30 Order name: CBC with Diff; Complete Time: 08:39 rn 07/08 07:30 Order name: Basic Metabolic Panel; Complete Time: 08:39 rn 07/08 07:30 Order name: EKG; Complete Time: 07:31 rn 07/08 07:30 Order name: CT Head Brain wo Cont; Complete Time: 08:39 rn 07/08 07:30 Order name: IV Start; Complete Time: 08:08 rn 07/08 07:30 Order name: EKG - Nurse/Tech; Complete Time: 07: rn 07/08 07:31 Order name: Suture Tray at Bedside; Complete Time: 08:08 rn Administered Medications: 07:45 Drug: Lidocaine (1 %) 1 vials Volume: 5 ml; Route: Infiltration; bp 08:05 Drug: NS 0.9% 500 ml Route: IV; Rate: bolus; Site: right antecubital; bp 09:09 Follow up: IV Status: Completed infusion; IV Intake: 500ml bp Disposition: 07/08/20 08:56 Discharged to Home. Impression: Facial laceration, Syncope and collapse. - Condition is Stable. - Discharge Instructions: Facial Laceration, Sutured Wound Care, Syncope. - Medication Reconciliation Form, Thank You Letter, Antibiotic Education, Prescription Opioid Use form. - Follow up: Private Physician; When: As needed; Reason: Recheck today's complaints, Re-evaluation by your physician. - Problem is new. - Symptoms have improved. Signatures: Dispatcher [employer] EDMinor Parrish MD MD rn Peltier, Brian, RN RN bp Corrections: (The following items were deleted from the chart) 08:55 08:43 Constitutional: This is a well developed, well nourished patient who is awake, rn alert, and in no acute distress. Head/Face: Normocephalic, 2 cm simple laceration lateral to right eye/eyebrow, no actve bleeding, no foreign body identified, no herniation of fat, no bony tenderness or deformity. Eyes: Pupils equal round and reactive to light, extra-ocular motions intact. Lids and lashes normal. Conjunctiva and sclera are non-icteric and not injected. Cornea within normal limits. Mild right periorbital swelling. Cardiovascular: Regular rate and rhythm. No pulse deficits. Respiratory: No increased work of breathing, no retractions or nasal flaring. Abdomen/GI: soft, non-tender Skin: Warm, dry MS/ Extremity: Pulses equal, no cyanosis. Neurovascular intact. Full, normal range of motion. Equal circumference. Neuro: Awake and alert, GCS 15, oriented to person, place, time, and situation. Cranial nerves II-XII grossly intact. Motor strength 5/5 in all extremities. Sensory grossly intact. Cerebellar exam normal. rn 09:08 08:56 07/08/2020 08:56 Discharged to Home. Impression: Facial laceration; Syncope and bp collapse. Condition is Stable. Forms are Medication Reconciliation Form, Thank You Letter, Antibiotic Education, Prescription Opioid Use. Follow up: Private Physician; When: As needed; Reason: Recheck today's complaints, Re-evaluation by your physician. Problem is new. Symptoms have improved. rn
[2020-07-08] MEDS ORDERED: Mastisol Adhesive Liq ONE (09:03)
[2020-07-11 18:48] VITALS: O2SAT 100
[2020-07-11 18:50] VITALS: BP 151/78; TEMP 98
== END 2020-07-08 09:08 | disposition home or self-care (01) ==
LOC: ER 07:07
PROC: 0JQ10ZZ Repair Face Subcutaneous Tissue and Fascia, Open Approach (ICD-10-PCS; principal; 2020-07-08)
DX: S01.111A Laceration without foreign body of right eyelid and periocular area, initial encounter (principal); W19.XXXA Unspecified fall, initial encounter; Y93.9 Activity, unspecified; Y92.9 Unspecified place or not applicable; G20 Parkinson's disease
CPT/HCPCS: 93005; 85025; 80048; 36415; 70450; 96360; 99284; 12011; J7040

== ENCOUNTER 2021-03-13 19:43 | Emergency (ER) | payer BC ==
--- OUTSIDE RECORDS SUMMARY | 2021-03-13 20:10 | XMS REPORT | Continuity of Care Document ---
:1955 Author Organization [facility] t Address [address] [place] [address] Care Team Providers Name Role Phone Srinivasan Stevenson MD Primary Care Physician NIKOLAY Attending Clinician Unavailable Nikolay JAUREGUI Attending Clinician Rito Chávez Attending Clinician Rito Tuttle NP Attending Clinician Miranda JAUREGUI Attending Clinician MIRANDA Attending Clinician Unavailable Anthony Michaud MD Attending Clinician Ernie Mims MD Attending Clinician Duran JAUREGUI Attending Clinician Tawanna Riddle MD Attending Clinician [phone] Shilo Casas MD Attending Clinician Unavailable Zackery Durham DO Attending Clinician SHILO CASAS Attending Clinician Unavailable Nicola Casas MD Attending Clinician 1, Fellow Attending Clinician MIRANDA Admitting Clinician Unavailable Payers Payer Name Policy Type Policy Number Effective Date Expiration Date S luca PPO/EPO - BCBS [id number] CVCP-BCBS [id number] CHOICE/CHOICE [id number] PLUS/OPTIONS PPO - [facility] BLUE CROSS/BLUE [id number] [address] [facility] SHIELDBCBS PPO 00:00:00 - Medical POS EPO Center [id number] -Prese [id number] [id number] [place] [id number] Problems Condition Condition Condition Status Onset Resolution Last Treating Co mments Source Name Details Category Date Date Treatment Clinician Date Incomplete Incomplete Disease Active 2019-[address] emptying emptying 2-14 [facility] - of bladder of bladder 00:00: Me dical 00 [place] OAB OAB Disease Active 2019-[address] (overactiv (overactiv 2-14 Kalina kes - e bladder) e bladder) 00:00: Me dical 00 Center Parkinson' Parkinson' Disease Active [facility] s disease s disease 7-19 [facility] - with EBS with EBS 00:00: Medica l (electrica (electrica 00 Ce nter l brain l brain stimulatio stimulatio n) n) Parkinson' Parkinson' Disease Active [facility] s disease s disease 7-18 [facility] - 00:00: Medical 00 Center Elevated Elevated Disease Active Overview: Me thodi hemoglobin hemoglobin 1-[address] A1c A1c 00:00: g of this Hospita 00 note l might be different from the original. Concerned about previous numbers being highLast Assessmen t & Plan: Formattin g of this note might be different from the original. Recheck A1c and follow up in 3 months Elevated Elevated Disease Active Overview: Me thodi BP without BP without Formattin st diagnosis diagnosis g of this H ospita of of note l hypertensi hypertensi might be on on different from the original. was on bp meds and came off with the study drugLast Assessmen t & Plan: Formattin g of this note might be different from the original. Provided log; monitor bp and will restart losartan if bp is >140/90 Disease of Disease of Disease Active Overview : Methodi thyroid thyroid Formattin st gland gland g of this Hospita note l might be different from the original. levo 75mcg dose has been stable. Last Assessmen t & Plan: Formattin g of this note might be different from the original. 1. L-thyroxi ne per orders.2. Recheck thyroid function tests3. Instructe d not to take multivita mins or iron within 4 hours of taking thyroid medicatio ns. Allergies, Adverse Reactions, Alerts Allergy Allergy Status Severity Reaction(s) Onset Inactive Treating Comm ents Source Name Type Date Date Clinician No Known DA Active [facility] 04-30 [facility] Family History Family Member Diagnosis Comments Start Date Stop Date Source Natural father Colon cancer [facility] Natural mother Lung cancer [facility] Social History Social Habit Start Date Stop Date Quantity Comments Source Sex Assigned At [facility] Tobacco use and 2020-10-22 2020-10-22 Never used [facility] - exposure 00:00:00 00:00:00 [facility] Alcohol intake 2020-10-22 2020-10-22 Current drinker [facility] Holly Gilmankes - 00:00:00 00:00:00 of [facility] (finding) Alcohol Comment 2020-10-18 2020-10-18 "seldom" [facility] - 00:00:00 00:00:00 [facility] Smoking Status Start Date Stop Date Source Never smoker [facility] Medications Ordered Filled Start Stop Current Ordering Indication Dosage Frequency Signature Comments Components Source Medication Medication Date Date Medication? Clinician (SIG) Name Name rasagiline Yes QD Take by [facility] (AZILECT) 1 3-23 mouth [facility] - mg Tab 12:57: daily. Medical 41 Center rotigotine Yes 8mg QD Place [address] (NEUPRO) 8 3-23 onto the [facility] - mg/24 hour 12:57: skin Medical PT24 41 daily. Center carbidopa-l Yes 1{tbl} Take [address] evodopa 3-23 tablet by [facility] - (SINEMET) 12:57: mouth as Medi simona 25-100 mg 41 needed . Center per tablet carbidopa-l Yes by Contin. [facility] St evodopa 3-23 Intratheca [facility] - 4.63-20 12:57: l Infusion Medi simona mg/mL insp 41 route. [place] tamsulosin Yes .4mg QD Take 0.[address] (FLOMAX) 3-23 mg by [facility] - 0.4 mg Cap 12:57: mouth Medica l 24 hr 41 daily. [place] capsule Lactobacill Yes Take by [facility] us 3-23 mouth. [facility] - acidophilus 12:57: Medica l (PROBIOTIC 41 Center ORAL) cranberry Yes Take by [facility]I S t extract 200 3-23 mouth. [facility] - mg Cap 12:57: Medical 41 Center mirtazapine Yes 30mg QD Take [address] (REMERON) 3-23 by mouth [facility] - 30 MG 12:57: nightly. Medical tablet 41 Center rivastigmin Yes 1{patch QD Place [address] e (EXELON) 3-23 } patch onto Reji es - 4.6 mg/24 12:57: the skin Medi simona hr patch 41 daily. [place] meloxicam Yes 7.5mg QD Take 7.[address] (MOBIC) 7.5 3-23 mg by [facility] - MG tablet 12:57: mouth Medical 41 daily. [place] levothyroxi Yes 88ug Take [address] ne 3-23 mcg by [facility] - (SYNTHROID, 12:57: mouth Medic al LEVOTHROID) 41 Every Center 88 MCG morning on tablet an empty stomach. docusate Yes 100mg QD Take [address] sodium 3-23 mg by [facility] - (COLACE) 12:57: mouth Medical 100 MG 41 daily. [place] capsule MULTIVITAMI Yes Take by [facility] N ORAL 3-23 mouth. [facility] - 12:57: Medical 41 [place] losartan Yes 25mg QD Take [address] (COZAAR) 25 3-23 by mouth Luke s - MG tablet 12:57: every Medical 41 evening. [place] ciprofloxac Yes 500mg Q.5D Take [address] in HCl 3-23 mg by [facility] - (CIPRO) 500 12:57: mouth 2 Med ical MG tablet 41 (two) Center times daily. levothyroxi 50ug Take [address] ne 10-18 03-19 mcg by [facility] - (SYNTHROID, 11:38: 00:00 mouth Medi simona LEVOTHROID) 53 :00 Every Center 50 MCG morning on tablet an empty stomach. loratadine allergic 10mg QD Take [address] (CLARITIN) 10-18- rhinitis by mouth [facility] - 10 mg 11:36: 00:00 daily. Medical tablet 25 :00 [place] carbidopa-l parkinsonis 1{tbl} QD Take [address] evodopa 10-18- m tablet by [facility] - (SINEMET 11:33: 00:00 mouth Medical CR) 50-200 40 :00 nightly. Cente r mg per tablet melatonin 3 6mg QD Take [address] mg Tab 09-03 by mouth [facility] - tablet 09:47: 00:00 nightly . Medic al 11 :00 [place] entacapone No 200mg [id number] Take [address] (COMTAN) 09-03 [id number] mg by Reji es - 200 mg 09:46: 00:00 7D mouth 6 Medical tablet 49 :00 (six) Center times daily. amoxicillin No Q.5D Take by [facility] /potassium 09-03 mouth 2 [facility] - clav 09:46: 00:00 (two) Medical (AUGMENTIN 01 :00 times Center ORAL) daily. polyethylen 2019-08 No 17g QD Take [address] e glycol -28 by mouth [facility] - (GLYCOLAX) 00:00: 23:59 daily for M edical 17 gram 00 :00 14 days. [place] packet docusate 2019-08- No 250mg QD Take 1 [facility] t sodium 09-1524 capsule [facility] - (COLACE) 00:00: 23:59 (250 mg Medic al 250 MG 00 :00 total) by Center capsule mouth daily for 10 days. acetaminoph 2019-08- No 1{tbl} Take [address] en-codeine 09-15 tablet by Reji es - (TYLENOL 00:00: 23:59 mouth Medical #3) 300-30 00 :00 every 4 Center mg per (four) tablet hours as needed for up to 10 days. Max Daily Amount: 6 tablets amoxicillin 2019-08- No 1{tbl} Q.5D Take [address] -clavulanat 2-14 12-18 tablet by Kalina hughes 00:00: 23:59 mouth 2 Medical (AUGMENTIN) 00 :00 (two) Center 875-125 mg times per tablet daily for 4 days. levothyroxi Yes 75ug Take 75 Met hodi ne 1-[address] (SYNTHROID, 19:23: mouth. Hosp suleiman LEVOXYL) 75 18 l mcg tablet melatonin Yes 3mg Take 3 mg Met hodi 10 mg 1-[address] capsule 19:23: Hospita 18 l NEUPRO 8 2016-08 Yes Methodi mg/24 hour 2-31 st patch 24 00:00: Hospita hour 00 l AZILECT 1 2016-08 Yes TK 1 T PO Met hodi mg tablet 2-[address] 00:00: Hospita 00 l carbidopa-l 2016-08 Yes TK 1 AND Me thodi evodopa 2-27 08/[address] (SINEMET) 00:00: FID Hospita 25-100 mg 00 l per tablet AmANTadine 2016-08 Yes TK ONE C Met hodi (SYMMETREL) 1-[address] 100 mg 00:00: FOR 1 WEEK Hospi ta capsule 00 THEN TID D l THEREAFTER entacapone 2016-08 Yes TK 1 T PO Me thodi (COMTAN) 1-[address] 200 mg 00:00: Hospita tablet 00 l dexmethylph 2016-08 Yes TK 2 CS PO Methodi enidate XR 0-[address] (FOCALIN 00:00: Hospita XR) 10 MG 00 l 24 hr capsule Vital Signs Vital Name Observation Time Observation Value Comments Source Systolic blood 2020-10-22 12:38:00 144 mm[Hg] ASHOK Mustafa [facility] Diastolic blood 2020-10-22 12:38:00 79 mm[Hg] [facility] Heart rate 2020-10-22 12:38:00 77 /min [facility] Body temperature 2020-10-22 12:38:00 36 Faith [facility] Respiratory rate 2020-10-22 12:38:00 18 /min [facility] Oxygen saturation in 2020-10-22 12:38:00 99 /min [facility] - Arterial blood by Medical Ce nter Pulse oximetry Body height 2020-10-22 06:14:00 170.2 cm [facility] Body weight 2020-10-22 06:14:00 75.8 kg [facility] BMI 2020-10-22 06:14:00 26.17 kg/m2 [facility] Procedures Procedure Date / Time Performed Performing Clinician Formerly [facility] e TISSUE EXAM 2020-10-22 09:14:00 Harvey Velazquez [facility] IMPLANTATION,PULSE 2020-10-22 08:22:00 Harvey Velazquez [facility] - GENERATOR DEEP BRAIN Medical Cady ter STIMULATOR STAGE 2 PROCEDURE W/ C-ARM 2020-10-22 08:22:00 Harvey Velazquez [facility] SARS-COV2/RT-PCR ([facility] & 2020-10-17 08:46:00 Harvey Velazquez [facility] - REF LABS) [facility] URINALYSIS W/ REFLEX 2020-10-17 08:46:00 Harvey Velazquez [facility] URINE CULTURE [facility] BASIC METABOLIC PANEL 2020-10-17 08:46:00 Harvey Velazquez [facility] (7) [facility] CBC W/PLT COUNT & AUTO 2020-10-17 08:46:00 Harvey Velazquez [facility] DIFFERENTIAL [facility] PROTHROMBIN TIME/INR 2020-10-17 08:46:00 Harvey Velazquez [facility] PT/APTT 2020-10-17 08:46:00 Harvey Velazquez [facility] TYPE AND SCREEN, 2020-10-17 08:46:00 Harvey Velazquez [facility] AUTOMATED [facility] XR CHEST 2 VIEWS 2020-09-03 12:57:00 Miranda Harveyfrancis PULIDO [facility] ECG 12-LEAD 2020-09-03 12:47:14 Miranda Harvey [facility] SARS-COV2/RT-PCR ([facility] & 2020-09-03 11:31:00 Miranda Harvey [facility] - REF LABS) [facility] URINALYSIS W/ REFLEX 2020-09-03 11:31:[address] [facility] - URINE CULTURE [facility] BASIC METABOLIC PANEL 2020-09-03 11:31:00 Harvey Velazquez CH[facility] - (7) [facility] CBC W/PLT COUNT & AUTO 2020-09-03 11:31:[address] [facility] - DIFFERENTIAL [facility] Center PT/APTT 2020-09-03 11:31:00 Miranda Harvey [facility] TYPE AND SCREEN, 2020-09-03 11:31:00 Harvey Velazquez [facility] - AUTOMATED [facility] Center FL FLUORO NON-SPECIFIC 2020-07-15 15:00:00 Neal Casas CH, I [facility] - UP TO 1 HOUR [facility] PROCEDURE W/ C-ARM 2020-07-15 13:27:00 Neal Casas [facility] PLACEMENT,INTERSTIM 2020-07-15 13:27:00 Neal Casas [facility] PROGRAMMING & 2020-07-15 13:27:00 Neal Casas [facility] - ANALYSIS,NEUROSTIMULATOR [facility] ECG 12-LEAD 2020-07-15 00:00:00 Luis Manuel Yeung [facility] URINE CULTURE 2020-07-10 12:24:00 Neal Casas [facility] SARS-COV2/RT-PCR ([facility] & 2020-07-10 12:24:[address] [facility] - REF LABS) [facility] URINALYSIS W/ 2020-07-10 12:24:00 Neal Casas [facility] - MICROSCOPIC [facility] BASIC METABOLIC PANEL 2020-07-10 12:24:[address] [facility] - (7) [facility] CBC W/PLT COUNT & AUTO 2020-07-10 12:24:[address] Neal Casas [facility] - DIFFERENTIAL [facility] Plan of Care Planned Activity Planned Date Details Comments Source Future Scheduled 2021-04-[address] [facility] - Test 00:00:00 (#1) [code = [facility] INFLUENZA VACCINE (#1)] Future Scheduled 2020-08-[address] [facility] - Test 00:00:00 (12+) [code = [facility] Center DEPRESSION SCREENING (12+)] Future Scheduled 2007 SHINGLES VACCINES ([address] [facility] - Test 00:00:00 of 2) [code = [facility] SHINGLES VACCINES (1 of 2)] Future Scheduled [address] [facility] - Test 00:00:00 (procedure) [code = [facility] [id number]] Future Scheduled [address] [facility] - Test 00:00:00 malignant [facility] of [facility] cervix (procedure) [code = 816343367] Future Scheduled 1976-02-02 DTAP/TDAP/TD VACCINES [facility] Test 00:00:00 (1 - Tdap) [code = Medical C enter DTAP/TDAP/TD VACCINES (1 - Tdap)] Future Scheduled 1975 HEPATITIS C [facility]CRE[facility]ING [facility] - Test 00:00:00 [code = HEPATITIS C [facility] Center SCREENING] Future Scheduled 1969 COVID-19 VACCINE (1) [facility] - Test 00:00:00 [code = COVID-[address] VACCINE (1)] Future Scheduled [address] [facility] - Test 00:00:00 malignant neoplasm of Medica l Center breast (procedure) [code = 734551299] Future Scheduled [address] [facility] - Test 00:00:00 malignant [facility] of [facility] colon (procedure) [code = 140320262] Future Scheduled COVID-19 [facility]INE ([facility] [code = COVID-19 VACCINE (1)] Future Scheduled [facility] Test malignant neoplasm of cervix (procedure) [code = 839524055] Future Scheduled BREAST CANC[facility] Test SCREENING [code = BREAST CANCER SCREENING] Future Scheduled COLONOSCOPY SCREENING [facility] Test [code = COLONOSCOPY SCREENING] Future Scheduled [facility] (#1) [code = SHINGLES VACCINES (#1)] Future Scheduled [facility]INE [facility] [code = INFLUENZA VACCINE] Encounters Start End Encounter Admission Attending Care Care Encounter Source Date/Time Date/Time Type Type Clinicians Facility Department ID 2021-02-04 2021-02-04 Outpatient VEE LINK [facility] [id number] [facility] 08:31:48 15:56:40 MARISSARAJESH Stricklandg e of Medicin e 2021-02-04 2021-02-04 Office VEE Link 1.2.840.114 [id number] 08:31:48 08:51:48 Visit Marissa AMBULATOR [id number] Y 0.2.7.2.686 [id number] 2020-11-11 2020-11-11 Outpatient VEE LINK [facility] [id number] [facility] 09:47:51 16:09:11 MARISSA Sánchez e of Medicin e 2020-11-11 2020-11-11 Office TEDDY Link 1.2.840.114 [id number] 09:47:51 16:09:11 Visit Marissa AMBULATOR 350.1.13.21 Y 0.2.7.2.686 [id number] 2020-11-05 2020-11-05 Office TEDDY Tuttle 1.2.840.114 [id number] 15:21:56 16:14:10 Visit Víctorer AMBULATOR 350.1.13.21 Rito Y 0.2.7.2.686 [id number] 2020-08-21 2020-08-21 Office VEE Link 1.2.840.114 [id number] 10:52:12 15:07:58 Visit Marissa AMBULATOR 350.1.13.21 Y 0.2.7.2.686 [id number] 2020-08-21 2020-08-21 Office TEDDY RiddleM 1.2.840.114 [id number] 09:16:31 11:53:26 Visit Anna Stacy AMBULATOR 350.1.13.21 Nicola Y 0.2.7.2.686 [id number] 2020-06-21 2020-06-21 Office Parag TEDDYM 1.2.840.114 [id number] 14:06:57 16:16:33 Visit Christopher AMBULATOR 350.1.13.21 Rito Y 0.2.7.2.686 [id number] 2020-06-21 2020-06-21 Office Augusto VEE 1.2.840.114 [id number] 12:31:48 12:41:48 Visit Christopher AMBULATOR 350.1.13.21 P Y 0.2.7.2.686 [id number] 2020-05-23 2020-05-23 Office VEE Casas 1.2.840.114 [id number] 10:24:43 11:57:55 Visit Christopher AMBULATOR 350.1.13.21 P Y 0.2.7.2.686 [id number] 2020-05-22 2020-05-22 Office VEE Link 1.2.840.114 [id number] 09:52:20 13:31:33 Visit Marissa AMBULATOR 350.1.13.21 Y 0.2.7.2.686 [id number] 2020-05-02 2020-05-02 Office VEE Casas 1.2.840.114 [id number] 10:25:40 10:35:40 Visit Christopher AMBULATOR 350.1.13.21 P Y 0.2.7.2.686 [id number] 2020-02-21 2020-02-21 Office VEE Link 1.2.840.114 [id number] 10:55:48 16:32:49 Visit Marissa AMBULATOR 350.1.13.21 Y 0.2.7.2.686 [id number] 2020-01-04 2020-01-04 Office VEE Link 1.2.840.114 [id number] 10:47:05 13:10:50 Visit Marissa AMBULATOR 350.1.13.21 Y 0.2.7.2.686 [id number] [facility] 2019-11-22 2019-11-22 Office Nikolay, BCM 1.2.840.114 [id number] 07:53:06 10:26:01 Visit Marissa AMBULATOR 350.1.13.21 Y 0.2.7.2.686 [id number] [facility] 2019-10-04 2019-10-04 Office Faribad, BCM 1.2.840.114 [id number] 10:20:28 13:44:29 Visit Marissa AMBULATOR 350.1.13.21 Y 0.2.7.2.686 [id number] [facility] 2019-09-20 2019-09-20 Office 1, Neuro BCM 1.2.840.114 [id number] 09:48:24 13:20:20 Visit Fellow AMBULATOR 350.1.13.21 Y 0.2.7.2.686 [id number] [facility] 2019-09-13 2019-09-13 Office Nikolay, BCM 1.2.840.114 [id number] 09:48:16 13:56:32 Visit Marissa AMBULATOR 350.1.13.21 Y 0.2.7.2.686 [id number] [facility] 2019-09-06 2019-09-06 Office Nikolay, BCM 1.2.840.114 [id number] 09:55:15 11:25:00 Visit Marissa AMBULATOR 350.1.13.21 Y 0.2.7.2.686 [id number] [facility] 2019-08-28 2019-08-28 Office Tarluciad, BCM 1.2.840.114 [id number] 11:18:25 11:33:25 Visit Marissa AMBULATOR 350.1.13.21 Y 0.2.7.2.686 [id number] [facility] 2019-08-24 2019-08-24 Office Nikolay, BCM 1.2.840.114 [id number] 09:04:50 09:34:50 Visit Marissa AMBULATOR 350.1.13.21 Y 0.2.7.2.686 [id number] 2019-08-23 2019-08-23 Office VEE Link 1.2.840.114 [id number] 08:16:43 08:46:43 Visit Marissa AMBULATOR 350.1.13.21 Y 0.2.7.2.686 [id number] 2019-04-28 2019-04-28 Office VEE Link 1.2.840.114 [id number] 14:19:30 15:49:19 Visit Marissa AMBULATOR 350.1.13.21 Y 0.2.7.2.686 [id number] Results Test Description Test Time Test Comments Results Result Comments Source Tissue Exam 2020-10-23 09:20:00 Test Item Value Reference Range Interpretation Comme nts Case Report (test code = 104) Surgical Pathology Report Case: [id number] Authorizing Provider: Harvey Velazquez MD Collected: 10/22/2020 09:14 AM Ordering Location: [facility] PERIOPERATIVE Received: 10/22/2020 09:33 AM SERVICES Pathologist: Nakul Mccabe MD Specimen: Other, DBS BATTERY EXPLANT DIAGNOSIS (test code = 3220) x5xfoMAeVFGcc0tjRDAwzHIcIvMxWwJgZfYyUc pc dWMxIHtccnRmMVxlcGljOTIwMlxhbnNpXHNwbHRw Z8GqqehkUKlrFJ5wCX1qhNvftYQjdTTlCHLhVgRm f9trq137wAGcu4nwURPYgwppvWq9wTcxK02mb1H8 GbhnC95nrWXmAMxzdOAkzlvyyrJsBFaHWXeYHcWH ALhMFqaiZFHOT4QkM8NPMWWJRO3CPLLHSPZdJvUH ZO7uC5HLHLZIYXWUZvSJWARNBSBUAMkqtOoeLCRo ASGpFTWGPYHUFBHZAIjBJVITAQ3FWFJFB6TkMiKL LPRDNVMJCMNJIAdEKCNORWbGDi2UQaWXQtuQTGiv CZU1x0mmzUKoHYUenQCeJGOjETvbtpZdQWDwOhlo ugyqNAGcQNQ2onRlOFUdKDwaEWYcKVptKh7xwHJo bIurTcHcFXPos9ziwdXHuiyqwSo8c0cyZDRbDrE5 xHYbGMluP3xdzfBagCUlOTBeUHy9vE74BAIhfU1w eLJoELcnozWkEuQ6TRngCNHfFdZ8XWSqsPKnWIFg I2sfSLTkBIwzPEGmVDoyuXHoOKC8dEaby4X6vIBd kTZsnZhuIpIuChZzZtJPb5DnYRa3zQkqB6ZdWBHc UeX3yZGxXIAfGPbdSDCiFSLzeuD4bZ58BBfivtR8 wLKye6Sry71gk607xE8yrSBaFWZ4CELcJSIdvDWt QSDiJHJ8EOKohPIuN5wtRDRoJA4cxxzdSKinEKwe BRAivWD6FDKscSZeG5NjUPUtLFtjBSXertz2GzMw Er6fbAQayNhaVXjad1rfo9xhhCIgSqb5OPQoFmGn BczxMEzli7Owo7qyINOehh7qGQQ3rNXlcKtcu6W6 kKXaRFQnkEDgOSHnPZ7odFWqFTIihJ5lodsjOECn HdKqxbmqDULpxEhkitYqLs9llVevQFY0EUosU7pr yW5tShL5SNzzL9ninY7bODl5KSheMYZoaZG7klP5 TNOmoUTcC3VxzB2kQWNoMT0fwed9b8lhIER2ESbk QRCoUqV0osL4GWNaoSNzFWUwdXsiYSjqz467DUO2 BtCdMIMas0CgI2VqrBqiK61fvSmoY24pQTWvpOfj nL7ahKaizZ9pAsQtYxWbRKctlWvsGY8tDZBbD4kn kAFvFEDrYOLjU2ucKfRccD5opAhtTBgepnEmFNVn Pzu2QDRmeVCqLXAaOfq0WSDrZNBuL20xlwyqPCE0 oE7bs0qgw4WyELnbEEG0JASak77kYLfhbmQ6XPgn Jb1wTZOaKml9YlfrFLR8iC== CPT Code(s) (test code = 9537) q7ddkNWyKERuhCX3EzOnFYVoe0pjz8KfxKJe cGFy GXltoVSfayYpzp59uIW0wB93AL9gHOUqHiX7ECRj ykJ7Nio2OXCvNLFbaRTpF614r3kzo1ogzcZrmFD0 fVxwYXJkXHBsYWluXGZzMjAgODgzMDBccGFyfQ== CLINICAL HISTORY (test code = 0076) q6htgARgIGKhiQW6JrYqMAUrn6cjq3A sdHBncGFy ZXijvNFtjxWhkj12vQK7eO51FV6kOSEdPmZ9CDZw zcW2Ewn4XJDbVCUzcGDuT902s6jli5veyrSzcFY7 tYylRAXcVYNrHCogEWVhGmFcUANsq4ngu80qTIIu r2Ltz3GuUCCviw1= SPECIMEN SOURCE (test code = 3377) x8vpsQKpAYJojIO6SzIjVWGem4cyj5Ng dHBncGFy EChzpQDcnmFuvi71uYH9pM84EN2vMNMuSzT4QWOp pvE2Deq1SQIlPLMocZJbO587f2huh4pazsSglXI4 fVxwYXJkXHBsYWluXGZzMjAgRXhwbGFudFxwYXJ9 GROSS DESCRIPTION (test code = 3366) z6sihWZfDMSfuUNnEmCcQJFpDBJdo7 lcZGVmbGFu [file] BC8KHJkeeZ0qpDUbERFWX5BCVURXXthRSWRIF6pI E0qTS9ulfUQsVLKEBtLZMVD4CYpiXRsdECRqRsB4 WecmIAQbN6yARLIaihusVOBzBDTnas4cmvVtgE46 b8xwVBYnRBuvOJYlj6MkSfUMmfEzKLW5hI8tzeWu btOil3MeyQc2oHNwIjUWkCrqUYAcc5IazIEzLk9u KMmhc0GeEBR6HJ9fppF7eW5vKS9xrWfnNZVgxfyg YXIgUGlsYXIgQXJndWVsbGVzLCBQQSwgSFQgKEFT Y9OcOEKjdm1= MICROSCOPIC DESCRIPTION (test code = r0uunTEfCRVeyZU0LhFnXOMmb7qig4 BsdHBncGFy 3371) WGnelFCbizOyrk97wZU5hD25CH9eSEZhRlI4YJJj iqI0Mgx5JBQvROXrrRIoY320i1brk0cgvrTbjQC0 vVdpCGHrRVNkPDkzIZMjWnFuPq94SKXekcWums0w JQ8yrIUqmV== [facility] [id number] 09:20:00Surgical Pathology Report Case: [id number] Authorizing Provider: Harvey Velazquez MD Collected: 10/22/2020 09:14 AM Ordering Location: [facility] PERI[facility] Received: 10/22/2020 09:33 AM SERVICES Pathologist: Nakul Mccabe MD Specimen: Other, DBS BATTERY EXPLANT IMPLANTATION, PULSE GENERATOR DEEP BRAIN STIMULATOR STAGE II: - DEEP BRAIN STIMULATOR BATTERY IDENTIFIED (GROSS ONLY) Signing Pathologist Direct Phone Line: [phone] signed by Nakul Mccabe MD on 10/23/2020 at 9:20 [id number] disease ExplantReceived fresh labeled the patient's name, accession number and "explant" is a 6.5 x 4.9 x 1.2 cm metallic guerrero deep brain stimulator battery that displays the following inscription:INFINITY tmUPGRADEABLE TECHNOLOGYSN: [id number] grossphotograph is taken. No sections are submitted. This case is for gross examination only.BOWEN Long, HT (ASCP)Not performed. SARS-CoV2/RT-PCR (Asymptomatic ONLY)2020-10-17 14:55:00 Test Item Value Reference Range Interpretation Comments SARS-COV2/RT-PCR Negative Not Detected, (test code = Negative, See 54890-1) external report for linked test [facility]2 [facility] (test code = 47202-8) SHAZIA (test code = Negative result for this SHAZIA) test determines that SARS-CoV-2 RNA was not present in the specimen above the Limit of Detection (LOD). However, Negative results do not preclude SARS-CoV-2 infection and should not be used as the sole basis for treatment or patient management decisions. Negative results must be combined with clinical observations, patient history, and epidemiological information. A false negative result may occur if a specimen is improperly collected, transported or handled. A false negative result should be considered if patient's recent exposures or clinical presentation indicate that COVID-19 (SARS-CoV-2) is likely and diagnostic tests for other causes of illness are negative. Re-testing should be considered in cases of suspected false negatives. The limit of detection for this assay is 800 copies/mL. This SARS CoV-2 test is a real-time RT-PCR test intended for the qualitative detection of nucleic acid from SARS-CoV-2 in a nasopharyngeal swab specimen collected from individuals suspected of COVID-19 by their healthcare provider. This test has not been Food and Drug Administration (FDA) cleared or approved. This is a modified version of an approved Emergency Use Authorization (EUA) and is in the process of review by the FDA. Once authorized by the FDA, the issued EUA will be effective until the declaration that circumstances exist justifying the authorization of the emergency use of in vitro diagnostic tests for detection and/or diagnosis of COVID-19 is terminated under Section 564(b)(2) of the Act or the EUA is revoked under Section 564(g) of the Act. Fact Sheet for Healthcare Providers:https://www.[employer]/sites/default/f lópez/product/documents/F act_Sheet_HC_Providers_L edb_ESPW-FaD-4.pdf Fact Sheet for Healthcare Patients:https://www.[employer]/sites/default/fi les/product/documents/Fa ct_Sheet_Patients_Lyra_S ARS-CoV-2.pdf Performing Laboratory:[facility] [place] [address].[place], [place] [address] [place], [place] [address]ARS-COV2/RT-PCR ([facility])2020-10-17 14:55:00 Test Item Value Reference Range Interpretation Comments SARS-COV2/RT-PCR (test Negative Not Detected, Negative, code = 3230438) See external report for linked test SARS-COV-[address] [facility] (test code = 4233825) Negative result for this test determines that SARS-CoV-2 RNA was not present in the specimen above the Limit of Detection (LOD). However, Negative results do not preclude SARS-CoV-2 infection and should not be used as the sole basis for treatment or patient management decisions. Negative results mustbe combined with clinical observations, patient history, and epidemiological information. A false negative result may occur if a specimen is improperly collected, transported or handled. A false negative result should be considered if patient's recent exposures or clinical presentation indicate that COVID-19 (SARS-CoV-2) is likely and diagnostic tests for other causes of illness are negative. Re-testing should be considered in cases of suspected false negatives.The limit of detection for this assay is 800 copies/mL.This SARS CoV-2 test is a real-time RT-PCR test intended for the qualitative detection of nucleic acid from SARS-CoV-2 in a nasopharyngeal swab specimen collected from individuals susp ected of COVID-19 by their healthcare provider.This test has not been Food and Drug Administration (FDA) cleared or approved. This is a modified version of an approved Emergency Use Authorization (EUA) and is in the process of review by the FDA. Once authorized by the FDA, the issued EUA will be effective until the declaration that circumstances exist justifying the authorization of the emergency use of in vitro diagnostic tests for detection and/or diagnosis of COVID-19 is terminated under Section 564(b)(2) of the Act or the EUA is revoked under Section 564(g) of the Act.Fact Sheet for Healthcare Providers:https://www.[employer]/sites/default/files/product/documents/Fact_Shee c_FM_Wknoiqmnc_Wisv_LBKC-DaT-8.pdfFact Sheet for Healthcare Patients:https://www.[employer]/sites/default/files/product/ documents/Rsbf_Poxwg_Pqtlrsgb_Mhiz_LDXY-BjE-1.pdfPerforming Laboratory:[address].[place], [place] [address]Vdso and screen, [id number] 11:17:00 Test Item Value Reference Range Interpretation Comments ABO/RH AUTOMATED (BEAKER) (test A POSITIVE code = 2260) Ab Scrn (test code = 890-4) NEGATIVE [facility] + Reflex to Culture 2020-10-17 10:59:00 Test Item Value Reference Range Interpretation Comments Color, UA (test code Yellow = 5778-6) Clarity, UA (test Clear code = 5767-9) Specific [place], UA 1.031 1.001-1.035 (test code = 5811-5) pH, UA (test code = 5.5 5.0-8.0 5803-2) Protein, UA (test 10 mg/dL Negative A code = 43787-0) Glucose, UA (test Negative Negative code = 365) Ketones, UA (test 10 mg/dL Negative A code = 2514-8) Bilirubin, UA (test Negative Negative code = 64649-7) Blood, UA (test code Negative Negative = 96161-9) Nitrite, UA (test Negative Negative code = 5802-4) Leukocytes, UA (test Small Negative A code = 5799-2) Urobilinogen, UA 0.2 mg/dL 0.2-1 (test code = 73128-0) RBC, UA (test code = <1 See_Comment [Autom ated 65509-1) message] The system which generated this result transmitted reference range : /HPF. The reference range was not used to interpret this result as normal/abnormal . WBC, UA (test code = 8 See_Comment [Autom ated 5821-4) message] The system which generated this result transmitted reference range : /HPF. The reference range was not used to interpret this result as normal/abnormal . Mucus (test code = Occasional 8247-9) Squam Epithel, UA 1 See_Comment [Automate d (test code = 96409-3) messag e] The system which generated this result transmitted reference range : /HPF. The reference range was not used to interpret this result as normal/abnormal . Specimen Source (test code = 2795) SHAZIA (test code = SHAZIA) Shoe Repairer Helper ID - [auto]Shoe Repairer Helper ID - tech Lab Interpretation Abnormal (test code = 36425-4) [facility]/ REFLEX URINE [id number] 10:59:00 Test Item Value Reference Range Interpretation Comments COLOR (BEAKER) (test code = 470) Yellow CLARITY (BEAKER) (test code = 469) Clear SPECIFIC GRAVITY UA (BEAKER) (test 1.031 1.001-1.035 code = 468) PH UA (BEAKER) (test code = 467) 5.5 5.0-8.0 PROTEIN UA (BEAKER) (test code = 10 mg/dL Negative A 464) GLUCOSE UA (BEAKER) (test code = Negative Negative 365) KETONES UA (BEAKER) (test code = 10 mg/dL Negative A 371) BILIRUBIN UA (BEAKER) (test code = Negative Negative 462) BLOOD UA (BEAKER) (test code = Negative Negative 461) NITRITE UA (BEAKER) (test code = Negative Negative 465) LEUKOCYTE ESTERASE UA (BEAKER) Small Negative A (test code = 466) UROBILINOGEN UA (BEAKER) (test 0.2 mg/dL 0.2-1.0 code = 463) RBC UA (BEAKER) (test code = 519) < /HPF WBC UA (BEAKER) (test code = 520) 8 /HPF MUCUS (BEAKER) (test code = 1574) Occasional SQUAMOUS EPITHELIAL (BEAKER) (test 1 /HPF code = 516) SOURCE(BEAKER) (test code = 2795) Shoe Repairer Helper ID - [auto]Shoe Repairer Helper ID - techVeterans Administration Medical CenterGoingOn Metabolic [id number] 09:47:00 Test Item Value Reference Range Interpretation Comments Sodium (test code = 140 meq/L 034-498 6057-2) Potassium (test code = 4.0 meq/L 3.5-5.1 2823-3) Chloride (test code = 106 meq/L 98-107 2075-0) CO2 (test code = 27 meq/L 22-29 2028-9) BUN (test code = 33 mg/dL 7-21 H 3094-0) Creatinine (test code 0.74 mg/dL 0.57-1.25 = 2160-0) Glucose (test code = 85 mg/dL 70-105 2345-7) Calcium (test code = 9.2 mg/dL 8.4-10.2 65589-6) EGFR (test code = 79 mL/min/1.73 sq [place] [address]-8) NOT ACCURATE CREATININE CLEARANCE IN PREDICTING GLOMERULAR FILTRATION RATE . ESTIMATED GFR I S NOT APPLICABLE FOR DIALYSIS PATIENTS. SHAZIA (test code = SHAZIA) Shoe Repairer Helper ID - PIAYA L Lab Interpretation Abnormal (test code = 34585-2) [facility] HospitalBASIC METABOLIC [id number] 09:47:00 Test Item Value Reference Range Interpretation Comments SODIUM (BEAKER) 140 meq/L 136-145 (test code = 381) POTASSIUM (BEAKER) 4.0 meq/L 3.5-5.1 (test code = 379) CHLORIDE (BEAKER) 106 meq/L 98-107 (test code = 382) CO2 (BEAKER) (test 27 meq/L 22-29 code = 355) BLOOD UREA NITROGEN 33 mg/dL 7-21 H (BEAKER) (test code = 354) CREATININE (BEAKER) 0.74 mg/dL 0.57-1.25 (test code = 358) GLUCOSE RANDOM 85 mg/dL 70-105 (BEAKER) (test code = 652) CALCIUM (BEAKER) 9.2 mg/dL 8.4-10.2 (test code = 697) EGFR (BEAKER) (test 79 mL/min/1.73 ESTIMA MIGUEL GFR IS code = 1092) sq m NOT ACCURATE CREATININE CLEARANCE IN PREDICTING GLOMERULAR FILTRATION RATE . ESTIMATED GFR I S NOT APPLICABLE FOR DIALYSIS PATIEN TS. Shoe Repairer Helper ID - PIAYA LPT/[id number] 09:38:00 Test Item Value Reference Interpretation Comments Range Protime (test code = 13.8 See_Comment [Autom ated 6042-2) message] The system which generated this result transmitted reference range : 11.9 - 14.2 seconds. The reference range was not used to interpret this result as normal/abnormal . INR (test code = 1.09 See_Comment [Automated 6116-6) message] The system which generated this result transmitted reference range : <=5.90. The reference range was not used to interpret this result as normal/abnormal . PTT (test code = 37.0 See_Comment H [Automated 91271-3) message] The system which generated this result transmitted reference range : 22.5 - 36.0 seconds. The reference range was not used to interpret this result as normal/abnormal . SHAZIA (test code = Effective 12/28/2018: SHAZIA) PT Reference Range ChangeNew: 11.9-14.2 Previous: 11.7-14.7 RECOMMENDED COUMADIN/WARFARIN INR THERAPY RANGESSTANDARD DOSE: 2.0-3.0 Includes: PROPHYLAXIS for venous thrombosis, systemic embolization; TREATMENT for venous thrombosis and/or pulmonary embolus.HIGH RISK: Target INR is 2.5-3.5 for patients wiht mechanical heart valves. Lab Interpretation Abnormal (test code = 74102-3) [facility] HospitalPT/[id number] 09:38:00 Test Item Value Reference Range Interpretation Comments PROTIME (BEAKER) (test 13.8 seconds 11.9-14.2 code = 759) INR (BEAKER) (test 1.09 See_Comment [Automat ed code = 370) message] The sy stem which generated this result transmitted reference range : <=5.90. The reference range was not used to interpret this result as normal/abnormal . PARTIAL THROMBOPLASTIN 37.0 seconds 22.5-36.0 H TIME (BEAKER) (test code = 760) Effective 12/28/2018: PT Reference Range ChangeNew: 11.9-14.2 Previous: 11.7- 14.7RECOMMENDED COUMADIN/WARFARIN INR THERAPY RANGESSTANDARD DOSE: 2.0-3.0 Includes: PROPHYLAXIS for venous thrombosis, systemic embolization; TREATMENT for venous thrombosis and/or pulmonary embolus.HIGH RISK: Target INR is2.5-3.5 for patients wiht mechanical heart valves.Prothrombin time/[id number] 09:37:00 Test Item Value Reference Interpretation Comments Range Protime (test code = 13.8 See_Comment [Autom ated 5902-2) message] The system which generated this result transmitted reference range : 11.9 - 14.2 seconds. The reference range was not used to interpret this result as normal/abnormal . INR (test code = 1.09 See_Comment [Automated 6301-6) message] The system which generated this result transmitted reference range : <=5.90. The reference range was not used to interpret this result as normal/abnormal . SHAZIA (test code = Effective 12/28/2018: SHAZIA) PT Reference Range ChangeNew: 11.9-14.2 Previous: 11.7-14.7 RECOMMENDED COUMADIN/WARFARIN INR THERAPY RANGESSTANDARD DOSE: 2.0-3.0 Includes: PROPHYLAXIS for venous thrombosis, systemic embolization; TREATMENT for venous thrombosis and/or pulmonary embolus.HIGH RISK: Target INR is 2.5-3.5 for patients wiht mechanical heart valves. Lab Interpretation Normal (test code = 73571-6) [facility] HospitalPROTHROMBIN TIME/[id number] 09:37:00 Test Item Value Reference Range Interpretation Comments PROTIME (BEAKER) 13.8 seconds 11.9-14.2 (test code = 759) INR (BEAKER) (test 1.09 See_Comment [Automat ed message] code = 370) The system [employer] generated this result transmitted ref erence range: <=5.90. The reference range was not used to int erpret this result as normal/abnormal . Effective 12/28/2018: PT Reference Range ChangeNew: 11.9-14.2 Previous: 11.7- 14.7RECOMMENDED COUMADIN/WARFARIN INR THERAPY RANGESSTANDARD DOSE: 2.0-3.0 Includes: PROPHYLAXIS for venous thrombosis, systemic embolization; TREATMENT for venous thrombosis and/or pulmonary embolus.HIGH RISK: Target INR is2.5-3.5 for patients wiht mechanical heart valves.CBC with platelet count + automated [id number] 09:26:00 Test Item Value Reference Range Interpretation Comments WBC (test code = 6690-2) 5.7 See_Comment [A utomated message] The system [employer] generated this result transmitted ref erence range: 3.5 - 10 .5 K/L. The refe rence range was not u sed to interpret this result as normal/abnor mal. RBC (test code = 789-8) 4.09 See_Comment [Au tomated message] The system [employer] generated this result transmitted ref erence range: 3.93 - 5 .22 M/L. The refe rence range was not u sed to interpret this result as normal/abnor mal. MCHC (test code = 786-4) 30.9 See_Comment L [A utomated message] The system [employer] generated this result transmitted ref erence range: 32.2 - 3 5.5 GM/DL. The refe rence range was not u sed to interpret this result as normal/abnor mal. Hematocrit (test code = 36.6 % 34.1-44.9 4544-3) MCV (test code = 787-2) 89.5 fL 79.4-94.8 MCH (test code = 785-6) 27.6 pg 25.6-32.2 RDW (test code = 788-0) 16.0 % 11.7-14.4 H Platelets (test code = 251 See_Comment [Aut omated message] 7-3) The system [employer] generated this result transmitted ref erence range: 150 - 45 0 K/CU MM. The referen ce range was not u sed to interpret this result as normal/abnor mal. MPV (test code = 10.1 fL 9.4-12.3 13606-1) nRBC (test code = 413) 0 See_Comment [Aut omated message] The system [employer] generated this result transmitted ref erence range: 0 - 0 /1 00 WBC. The refere nce range was not u sed to interpret this result as normal/abnor mal. % Neutros (test code = 67 % 429) % Lymphs (test code = 21 % 430) % Monos (test code = 9 % 431) % Eos (test code = 432) 2 % % Baso (test code = 437) 1 % # Neutros (test code = 3.77 See_Comment [Aut omated message] 670) The system [employer] generated this result transmitted ref erence range: 1.56 - 6 .13 K/L. The refe rence range was not u sed to interpret this result as normal/abnor mal. # Lymphs (test code = 1.19 See_Comment [Auto mated message] 414) The system [employer] generated this result transmitted ref erence range: 1.18 - 3 .74 K/L. The refe rence range was not u sed to interpret this result as normal/abnor mal. # Monos (test code = 0.52 See_Comment H [Autom ated message] 415) The system [employer] generated this result transmitted ref erence range: 0.24 - 0 .36 K/L. The refe rence range was not u sed to interpret this result as normal/abnor mal. # Eos (test code = 416) 0.13 See_Comment [Au tomated message] The system [employer] generated this result transmitted ref erence range: 0.04 - 0 .36 K/L. The refe rence range was not u sed to interpret this result as normal/abnor mal. # Baso (test code = 417) 0.03 See_Comment [A utomated message] The system [employer] generated this result transmitted ref erence range: 0.01 - 0 .08 K/L. The refe rence range was not u sed to interpret this result as normal/abnor mal. Immature 0 % 0-1 Granulocytes-Relative (test code = 2801) Lab Interpretation (test Abnormal code = 31947-4) [facility] W/PLT COUNT & AUTO [id number] 09:26:00 Test Item Value Reference Range Interpretation Comments WHITE BLOOD CELL COUNT (BEAKER) 5.7 K/ L 3.5-10.5 (test code = 775) RED BLOOD CELL COUNT (BEAKER) 4.09 M/ L 3.93-5.22 (test code = 761) HEMOGLOBIN (BEAKER) (test code = 11.3 GM/DL 11.2-15.7 410) HEMATOCRIT (BEAKER) (test code = 36.6 % 34.1-44.9 411) MEAN CORPUSCULAR VOLUME (BEAKER) 89.5 fL 79.4-94.8 (test code = 753) MEAN CORPUSCULAR HEMOGLOBIN 27.6 pg 25.6-32.2 (BEAKER) (test code = 751) MEAN CORPUSCULAR HEMOGLOBIN CONC 30.9 GM/DL 32.2-35.5 L (BEAKER) (test code = 752) RED CELL DISTRIBUTION WIDTH 16.0 % 11.7-14.4 H (BEAKER) (test code = 412) PLATELET COUNT (BEAKER) (test 251 K/CU MM 150-450 code = 756) MEAN PLATELET VOLUME (BEAKER) 10.1 fL 9.4-12.3 (test code = 754) NUCLEATED RED BLOOD CELLS 0 /100 WBC 0-0 (BEAKER) (test code = 413) NEUTROPHILS RELATIVE PERCENT 67 % (BEAKER) (test code = 429) LYMPHOCYTES RELATIVE PERCENT 21 % (BEAKER) (test code = 430) MONOCYTES RELATIVE PERCENT 9 % (BEAKER) (test code = 431) EOSINOPHILS RELATIVE PERCENT 2 % (BEAKER) (test code = 432) BASOPHILS RELATIVE PERCENT 1 % (BEAKER) (test code = 437) NEUTROPHILS ABSOLUTE COUNT 3.77 K/ L 1.56-6.13 (BEAKER) (test code = 670) LYMPHOCYTES ABSOLUTE COUNT 1.19 K/ L 1.18-3.74 (BEAKER) (test code = 414) MONOCYTES ABSOLUTE COUNT (BEAKER) 0.52 K/ L 0.24-0.36 H (test code = 415) EOSINOPHILS ABSOLUTE COUNT 0.13 K/ L 0.04-0.36 (BEAKER) (test code = 416) BASOPHILS ABSOLUTE COUNT (BEAKER) 0.03 K/ L 0.01-0.08 (test code = 417) IMMATURE GRANULOCYTES-RELATIVE 0 % 0-1 PERCENT (BEAKER) (test code = 2801) ECG 12 [id number] 18:30:18Interface, External Ris In - 09/04/2020 6:30 PM CSTVentricular Rate 72 BPMAtrial Rate 72 BPMP-R Interval 136 msQRS Duration 78 msQ-T Interval 402 msQTC Calculation(Bazett) 440 msP [place] 27 degreesR [place] 37 degreesT [place] 48 degreesNormal sinus rhythmNormal ECGWhen compared with ECG of 15-JUL-2020 11:09,T wave amplitude has decreased in Anterior leadsConfirmed by Ese TAYLOR BASANT ([id number]) on 09/04/2020 6:30:15 [facility] URINALYSIS W/ REFLEX URINE [id number] 06:23:00 Test Item Value Reference Range Interpretation Comments COLOR (BEAKER) (test code = 470) Yellow CLARITY (BEAKER) (test code = 469) Clear SPECIFIC GRAVITY UA (BEAKER) (test 1.028 1.001-1.035 code = 468) PH UA (BEAKER) (test code = 467) 6.0 5.0-8.0 PROTEIN UA (BEAKER) (test code = Negative Negative 464) GLUCOSE UA (BEAKER) (test code = Negative Negative 365) KETONES UA (BEAKER) (test code = 10 mg/dL Negative A 371) BILIRUBIN UA (BEAKER) (test code = Negative Negative 462) BLOOD UA (BEAKER) (test code = Negative Negative 461) NITRITE UA (BEAKER) (test code = Negative Negative 465) LEUKOCYTE ESTERASE UA (BEAKER) Negative Negative (test code = 466) UROBILINOGEN UA (BEAKER) (test 0.2 mg/dL 0.2-1.0 code = 463) RBC UA (BEAKER) (test code = 519) < /HPF WBC UA (BEAKER) (test code = 520) 2 /HPF MUCUS (BEAKER) (test code = 1574) Occasional HYALINE CASTS (BEAKER) (test code 1 /LPF = 514) SOURCE(BEAKER) (test code = 2795) Shoe Repairer Helper ID - [auto]Shoe Repairer Helper ID - techSARS-COV2/RT-PCR ([facility]) 2020-09-03 21:00:00 Test Item Value Reference Range Interpretation Comments SARS-COV2/RT-PCR (test Negative Not Detected, Negative, code = 7437427) See external report for linked test SARS-COV-[address] [facility] (test code = 7642621) Negative result for this test determines that SARS-CoV-2 RNA was not present in the specimen above the Limit of Detection (LOD). However, Negative results do not preclude SARS-CoV-2 infection and should not be used as the sole basis for treatment or patient management decisions. Negative results mustbe combined with clinical observations, patient history, and epidemiological information. A false negative result may occur if a specimen is improperly collected, transported or handled. A false negative result should be considered if patient's recent exposures or clinical presentation indicate that COVID-19 (SARS-CoV-2) is likely and diagnostic tests for other causes of illness are negative. Re-testing should be considered in cases of suspected false negatives.The limit of detection for this assay is 100 copies/mL.This SARS CoV-2 test is a real-time RT-PCR test intended for the qualitative detection of nucleic acid from SARS-CoV-2 in a nasopharyngeal swab specimen collected from individuals suspected of COVID-19 by their healthcare provider.This test has not been Food and Drug Administration (FDA) cleared or approved. This is a modified version of an approved Emergency Use Authorization (EUA) and is in the process of review by the FDA. Once authorized by the FDA, the issued EUA will be effective until the declaration that circumstances exist justifying the authorization of the emergency use of in vitro diagnostic tests for detection and/or diagnosis of COVID-19 is terminated under Section 564(b)(2) of the Act or the EUA is revoked under Section 564(g) of the Act.Testing was performed using the [employer] SARS-CoV-2 assay.Fact Sheet for Healthcare Providers:https://www.[employer].hanks/steven/ MK_YSDG-AmX-2_QOH_Qedy_Tesnq_15-871080.pdfFact Sheet for Healthcare Patients:https://www.[employer] rafia/steven/BG_FMJS-VcZ-1_Lolwyqo_Dtkq_Cdydu_WJ_70-718244A5.pdfPerforming Laboratory:[facility] [place] [address] RAD, CHEST, 2 [id number] 15:06:00Reason for exam:->parkinson's disease, pre-opCH[facility] : 1955 Sex: FFINAL REPORT TECHNIQUE: Frontal and lateral views of the chest. SAURABH CATION: parkinson's disease, pre-op COMPARISON: 02/04/2018. FINDINGS: LINES/TUBES: Generator device of deep brain stimulator projects over the left hemithorax. LUNGS: The lungs are well inflated and clear. No consolidation or pulmonary edema. PLEURA: No pleural effusion or pneumothorax. HEART AND MEDIAS TINUM: The cardiomediastinal silhouette is within normal limits. SOFT TISSUES AND BONES: Unremarkable. IMPRESSION:No acute cardiopulmonary abnormalities. Signed: Elissa Cardozo MDReport Verified Date/Time: 09/03/2020 15:06:29 XR chest 2 [id number] 15:06:00Interface, External Ris In - 09/03/2020 3:08 PM CSTFINAL REPORT TECHNIQUE: Frontal and lateral views of the chest. INDICATION: parkinson's disease, pre-op COMPARISON: 02/04/2018. FINDINGS: LINES/TUBES: Generator device of deep brain stimulator projects over the left hemithorax. LUNGS: The lungs are well inflated and clear. No consolidation or pulmonary edema. PLEURA: No pleuraleffusion or pneumothorax. HEART AND MEDIASTINUM: The cardiomediastinal silhouette is within normal limits. SOFT TISSUES AND BONES: Unremarkable. IMPRESSION:No acute cardiopulmonary abnormalities. Signed: Elissa Cardozo Verified Date/Time: 09/03/2020 15:06:29 Electronically signedby: ELISSA CARDOZO MD on 09/03/2020 03:06 [facility]AB[facility]H, [id number] 12:52:00 Test Item Value Reference Range Interpretation Comments ABO Grouping (test code = 2588) A Rh Factor (test code = 2589) POS [facility]joBAS[facility] METABOL[facility] [id number] 12:21:00 Test Item Value Reference Range Interpretation Comments SODIUM (BEAKER) 140 meq/L 136-145 (test code = 381) POTASSIUM (BEAKER) 4.2 meq/L 3.5-5.1 (test code = 379) CHLORIDE (BEAKER) 104 meq/L 98-107 (test code = 382) CO2 (BEAKER) (test 30 meq/L 22-29 H code = 355) BLOOD UREA NITROGEN 27 mg/dL 7-21 H (BEAKER) (test code = 354) CREATININE (BEAKER) 0.76 mg/dL 0.57-1.25 (test code = 358) GLUCOSE RANDOM 82 mg/dL 70-105 (BEAKER) (test code = 652) CALCIUM (BEAKER) 9.4 mg/dL 8.4-10.2 (test code = 697) EGFR (BEAKER) (test 77 mL/min/1.73 ESTIMA MIGUEL GFR IS code = 1092) sq m NOT ACCURATE CREATININE CLEARANCE IN PREDICTING GLOMERULAR FILTRATION RATE . ESTIMATED GFR I S NOT APPLICABLE FOR DIALYSIS PATIEN TS. Shoe Repairer Helper ID - BRANDON FPT/[id number] 12:16:00 Test Item Value Reference Range Interpretation Comments PROTIME (BEAKER) (test code = 13.5 seconds 11.9-14.2 759) INR (BEAKER) (test code = 370) 1.06 <=5.90 PARTIAL THROMBOPLASTIN TIME 38.1 seconds 22.5-36.0 H (BEAKER) (test code = 760) Effective 12/28/2018: PT Reference Range ChangeNew: 11.9-14.2 Previous: 11.7- 14.7RECOMMENDED COUMADIN/WARFARIN INR THERAPY RANGESSTANDARD DOSE: 2.0-3.0 Includes: PROPHYLAXIS for venous thrombosis, systemic embolization; TREATMENT for venous thrombosis and/or pulmonary embolus.HIGH RISK: Target INR is2.5-3.5 for patients wiht mechanical heart valves.CBC W/PLT COUNT & AUTO [id number] 12:04:00 Test Item Value Reference Range Interpretation Comments WHITE BLOOD CELL COUNT (BEAKER) 5.1 K/ L 3.5-10.5 (test code = 775) RED BLOOD CELL COUNT (BEAKER) 4.58 M/ L 3.93-5.22 (test code = 761) HEMOGLOBIN (BEAKER) (test code = 12.6 GM/DL 11.2-15.7 410) HEMATOCRIT (BEAKER) (test code = 40.3 % 34.1-44.9 411) MEAN CORPUSCULAR VOLUME (BEAKER) 88.0 fL 79.4-94.8 (test code = 753) MEAN CORPUSCULAR HEMOGLOBIN 27.5 pg 25.6-32.2 (BEAKER) (test code = 751) MEAN CORPUSCULAR HEMOGLOBIN CONC 31.3 GM/DL 32.2-35.5 L (BEAKER) (test code = 752) RED CELL DISTRIBUTION WIDTH 15.0 % 11.7-14.4 H (BEAKER) (test code = 412) PLATELET COUNT (BEAKER) (test 232 K/CU MM 150-450 code = 756) MEAN PLATELET VOLUME (BEAKER) 10.1 fL 9.4-12.3 (test code = 754) NUCLEATED RED BLOOD CELLS 0 /100 WBC 0-0 (BEAKER) (test code = 413) NEUTROPHILS RELATIVE PERCENT 67 % (BEAKER) (test code = 429) LYMPHOCYTES RELATIVE PERCENT 21 % (BEAKER) (test code = 430) MONOCYTES RELATIVE PERCENT 9 % (BEAKER) (test code = 431) EOSINOPHILS RELATIVE PERCENT 2 % (BEAKER) (test code = 432) BASOPHILS RELATIVE PERCENT 0 % (BEAKER) (test code = 437) NEUTROPHILS ABSOLUTE COUNT 3.39 K/ L 1.56-6.13 (BEAKER) (test code = 670) LYMPHOCYTES ABSOLUTE COUNT 1.07 K/ L 1.18-3.74 L (BEAKER) (test code = 414) MONOCYTES ABSOLUTE COUNT (BEAKER) 0.46 K/ L 0.24-0.36 H (test code = 415) EOSINOPHILS ABSOLUTE COUNT 0.10 K/ L 0.04-0.36 (BEAKER) (test code = 416) BASOPHILS ABSOLUTE COUNT (BEAKER) 0.02 K/ L 0.01-0.08 (test code = 417) IMMATURE GRANULOCYTES-RELATIVE 0 % 0-1 PERCENT (BEAKER) (test code = 2801) FL, FLUORO, NON-SPECIFIC, UP TO 1 [id number] 15:12:52Reason for exam:- >LEFT [facility] 1955 Sex: FFluoroscopic unit utilized for a procedure performed in the OR. No interpretation was requested. Refer to the operative report for findings. Refer to PACS for patient radiation dose information.FL fluoro non-specific up to 1 [id number] 15:00:00Interface, External Ris In - 07/16/2020 12:02 PM CSTFluoroscopic unit utilized for a procedure performed in the OR. No interpretation was requested. Refer to the operative report for findings. Referto PACS for patient radiation dose information.[facility] Hospital[facility] [id number] 12:06:00 Test Item Value Reference Range Interpretation Comments Result (test code = See comment 6463-4) SHAZIA (test code = SHAZIA) <10,000 col/mL Gram Negative Rods<10,000 col/mL skin felipe [facility] HospitalURINE [id number] 12:06:00 Test Item Value Reference Range Interpretation Comments CULTURE (BEAKER) (test code = See comment 1095) <10,000 col/mL Gram Negative Rods<10,000 col/mL skin floraSARS-COV2/RT-PCR ([facility])2020-07-10 23:24:00 Test Item Value Reference Range Interpretation Comments SARS-COV2/RT-PCR (test Negative Not Detected, Negative, code = 8814041) See external report for linked test SARS-COV-[address] [facility] (test code = 5437588) Negative result for this test determines that SARS-CoV-2 RNA was not present in the specimen above the Limit of Detection (LOD). However, Negative results do not preclude SARS-CoV-2 infection and should not be used as the sole basis for treatment or patient management decisions. Negative results mustbe combined with clinical observations, patient history, and epidemiological information. A false negative result may occur if a specimen is improperly collected, transported or handled. A false negative result should be considered if patient's recent exposures or clinical presentation indicate that COVID-19 (SARS-CoV-2) is likely and diagnostic tests for other causes of illness are negative. Re-testing should be considered in cases of suspected false negatives.The limit of detection for this assay is 800 copies/mL.This SARS CoV-2 test is a real-time RT-PCR test intended for the qualitative detection of nucleic acid from SARS-CoV-2 in a nasopharyngeal swab specimen collected from individuals suspected of COVID-19 by their healthcare provider.This test has not been Food and Drug Administration (FDA) cleared or approved. This is a modified version of an approved Emergency Use Authorization (EUA) and is in the process of review by the FDA. Once authorized by the FDA, the issued EUA will be effective until the declaration that circumstances exist justifying the authorization of the emergency use of in vitro diagnostic tests for detection and/or diagnosis of COVID-19 is terminated under Section 564(b)(2) of the Act or the EUA is revoked under Section 564(g) of the Act.Fact Sheet for Healthcare Providers:https://www.[employer]/sites/default/files/product/documents/Fact_Shee h_LV_Lmfdekfuq_Arex_ARLT-UrR-6.pdfFact Sheet for Healthcare Patients:https://www.[employer]/sites/default/files/product/ documents/Omnd_Uokdi_Imkogejw_Khll_QZGX-WjA-9.pdfPerforming Laboratory:[facility].[place], [place] [address]VJYFW METABOLIC PANEL 2020-07-10 15:39:00 Test Item Value Reference Range Interpretation Comments SODIUM (BEAKER) 141 meq/L 136-145 (test code = 381) POTASSIUM (BEAKER) 4.0 meq/L 3.5-5.1 (test code = 379) CHLORIDE (BEAKER) 102 meq/L 98-107 (test code = 382) CO2 (BEAKER) (test 30 meq/L 22-29 H code = 355) BLOOD UREA NITROGEN 25 mg/dL 7-21 H (BEAKER) (test code = 354) CREATININE (BEAKER) 0.74 mg/dL 0.57-1.25 (test code = 358) GLUCOSE RANDOM 103 mg/dL 70-105 (BEAKER) (test code = 652) CALCIUM (BEAKER) 9.5 mg/dL 8.4-10.2 (test code = 697) EGFR (BEAKER) (test 79 mL/min/1.73 ESTIMA MIGUEL GFR IS code = 1092) sq m NOT ACCURATE CREATININE CLEARANCE IN PREDICTING GLOMERULAR FILTRATION RATE . ESTIMATED GFR I S NOT APPLICABLE FOR DIALYSIS PATIEN TS. Shoe Repairer Helper ID - BSCBC W/PLT COUNT & AUTO [id number] 15:25:00 Test Item Value Reference Range Interpretation Comments WHITE BLOOD CELL COUNT (BEAKER) 6.0 K/ L 3.5-10.5 (test code = 775) RED BLOOD CELL COUNT (BEAKER) 4.56 M/ L 3.93-5.22 (test code = 761) HEMOGLOBIN (BEAKER) (test code = 12.5 GM/DL 11.2-15.7 410) HEMATOCRIT (BEAKER) (test code = 40.9 % 34.1-44.9 411) MEAN CORPUSCULAR VOLUME (BEAKER) 89.7 fL 79.4-94.8 (test code = 753) MEAN CORPUSCULAR HEMOGLOBIN 27.4 pg 25.6-32.2 (BEAKER) (test code = 751) MEAN CORPUSCULAR HEMOGLOBIN CONC 30.6 GM/DL 32.2-35.5 L (BEAKER) (test code = 752) RED CELL DISTRIBUTION WIDTH 15.0 % 11.7-14.4 H (BEAKER) (test code = 412) PLATELET COUNT (BEAKER) (test 247 K/CU MM 150-450 code = 756) MEAN PLATELET VOLUME (BEAKER) 10.4 fL 9.4-12.3 (test code = 754) NUCLEATED RED BLOOD CELLS 0 /100 WBC 0-0 (BEAKER) (test code = 413) NEUTROPHILS RELATIVE PERCENT 64 % (BEAKER) (test code = 429) LYMPHOCYTES RELATIVE PERCENT 24 % (BEAKER) (test code = 430) MONOCYTES RELATIVE PERCENT 9 % (BEAKER) (test code = 431) EOSINOPHILS RELATIVE PERCENT 2 % (BEAKER) (test code = 432) BASOPHILS RELATIVE PERCENT 1 % (BEAKER) (test code = 437) NEUTROPHILS ABSOLUTE COUNT 3.81 K/ L 1.56-6.13 (BEAKER) (test code = 670) LYMPHOCYTES ABSOLUTE COUNT 1.41 K/ L 1.18-3.74 (BEAKER) (test code = 414) MONOCYTES ABSOLUTE COUNT (BEAKER) 0.56 K/ L 0.24-0.36 H (test code = 415) EOSINOPHILS ABSOLUTE COUNT 0.12 K/ L 0.04-0.36 (BEAKER) (test code = 416) BASOPHILS ABSOLUTE COUNT (BEAKER) 0.03 K/ L 0.01-0.08 (test code = 417) IMMATURE GRANULOCYTES-RELATIVE 0 % 0-1 PERCENT (BEAKER) (test code = 2801) Urinalysis w/[id number] 13:38:00 Test Item Value Reference Range Interpretation Comments Color, UA (test code Yellow = 5778-6) Clarity, UA (test Clear code = 5767-9) Specific [place], UA 1.019 1.001-1.035 (test code = 5811-5) pH, UA (test code = 6.5 5.0-8.0 5803-2) Protein, UA (test Negative Negative code = 81927-0) Glucose, UA (test Negative Negative code = 365) Ketones, UA (test Trace Negative A code = 2514-8) Bilirubin, UA (test Negative Negative code = 60945-6) Blood, UA (test code Negative Negative = 68410-7) Nitrite, UA (test Negative Negative code = 5802-4) Leukocytes, UA (test Negative Negative code = 5799-2) Urobilinogen, UA 0.2 mg/dL 0.2-1 (test code = 61762-5) RBC, UA (test code = 0 See_Comment [Autom ated 41812-0) message] The system which generated this result transmit miguel reference range : /HPF. The reference range was not used to interpret this result as normal/abnormal . WBC, UA (test code = 0 See_Comment [Autom ated 5821-4) message] The system which generated this result transmit miguel reference range : /HPF. The reference range was not used to interpret this result as normal/abnormal . Mucus (test code = Rare 8247-9) Squam Epithel, UA <1 See_Comment [Automate d (test code = 08175-6) messag e] The system which generated this result transmit miguel reference range : /HPF. The reference range was not used to interpret this result as normal/abnormal . Hyaline Casts, UA 2 See_Comment [Automate d (test code = 92232-9) messag e] The system which generated this result transmit miguel reference range : /LPF. The reference range was not used to interpret this result as normal/abnormal . Specimen Source (test Urine, Voided code = 2795) SHAZIA (test code = SHAZIA) Shoe Repairer Helper ID - [auto]Shoe Repairer Helper ID - tech Lab Interpretation Abnormal (test code = 84796-0) [facility] Hospital[facility]INALYSIS W/ [id number] 13:38:00 Test Item Value Reference Range Interpretation Comments COLOR (BEAKER) (test code = Yellow 470) CLARITY (BEAKER) (test code = Clear 469) SPECIFIC GRAVITY UA (BEAKER) 1.019 1.001-1.035 (test code = 468) PH UA (BEAKER) (test code = 6.5 5.0-8.0 467) PROTEIN UA (BEAKER) (test code Negative Negative = 464) GLUCOSE UA (BEAKER) (test code Negative Negative = 365) KETONES UA (BEAKER) (test code Trace Negative A = 371) BILIRUBIN UA (BEAKER) (test Negative Negative code = 462) BLOOD UA (BEAKER) (test code = Negative Negative 461) NITRITE UA (BEAKER) (test code Negative Negative = 465) LEUKOCYTE ESTERASE UA (BEAKER) Negative Negative (test code = 466) UROBILINOGEN UA (BEAKER) (test 0.2 mg/dL 0.2-1.0 code = 463) RBC UA (BEAKER) (test code = 0 /HPF 519) WBC UA (BEAKER) (test code = 0 /HPF 520) MUCUS (BEAKER) (test code = Rare 1574) SQUAMOUS EPITHELIAL (BEAKER) < /HPF (test code = 516) HYALINE CASTS (BEAKER) (test 2 /LPF code = 514) SOURCE(BEAKER) (test code = Urine, Voided 8785) Shoe Repairer Helper ID - [auto]Shoe Repairer Helper ID - techCT, BRAIN, WITHOUT [id number] 11:42:00[facility] protocol.FINAL REPORT CT head without contrast Stealth protocol 03/02/2018 11:39 AM CLINICAL HISTORY: DBS leads TECHNIQUE: With zero gantry angle, helical axial [address] images th rough the head were obtained. This examination was performed according to our departmental dose optimization program, which includes automated exposure control, adjustment of the mA and/or kV accordingto patient size, and/or use of iterated reconstruction [...] stimulator electrode placement as discussed. Signed: Jason Paceeport Verified Date/Time: 03/02/2018 11:42:17 Reading Location: [address] Neuro Reading Room ALYSIS W/ REFLEX URINE [id number] 18:46:00 Test Item Value Reference Range Interpretation Comments COLOR (BEAKER) (test code = 470) Yellow CLARITY (BEAKER) (test code = 469) Clear SPECIFIC GRAVITY UA (BEAKER) (test 1.022 1.001-1.035 code = 468) PH UA (BEAKER) (test code = 467) 5.5 5.0-8.0 PROTEIN UA (BEAKER) (test code = Negative Negative 464) GLUCOSE UA (BEAKER) (test code = 50 mg/dL Negative A 365) KETONES UA (BEAKER) (test code = 20 mg/dL Negative A 371) BILIRUBIN UA (BEAKER) (test code = Negative Negative 462) BLOOD UA (BEAKER) (test code = 461) Negative Negative NITRITE UA (BEAKER) (test code = Negative Negative 465) LEUKOCYTE ESTERASE UA (BEAKER) Negative Negative (test code = 466) UROBILINOGEN UA (BEAKER) (test code 0.2 mg/dL 0.2-1.0 = 463) RBC UA (BEAKER) (test code = 519) < /HPF WBC UA (BEAKER) (test code = 520) < /HPF BACTERIA (BEAKER) (test code = 517) Rare SOURCE(BEAKER) (test code = 2795) BASIC METABOLIC [id number] 18:45:00 Test Item Value Reference Range Interpretation [...] PATIEN TS. CBC W/PLT COUNT & AUTO [id number] 11:36:00 Test Item Value Reference Range Interpretation [...] (test code = 2801) CT, BRAIN, WITHOUT [id number] 15:11:00FINAL REPORT CT head without contrast 02/16/2018 [...] sinuses and tympanomastoid cavities are well-aerated. The skull is intact. IMPRESSION: Bilateral deep brain stimulator electrode placement as discussed. Signed: Jason Pace Verified Date/Time: 02/16/2018 15:11:14 Reading Location: [address] Neuro Reading Room WATERMELON INSPECTOR IN OR/30 MINUTE [id number] 14:08:00Reason for exam:- >Parkinsons DiseaseFINAL REPORT Fluoroscopy and CT stereotaxis 583 views intraoperative 02/16/2018 2:07 PM CLINICAL HISTORY: Instrument localization COMPARISON: None available IMPRESSION: Please correlate imaging report findings with the procedure note prepared by Dr. Martinez, as an intra-procedure imaging consultation was not requested. Reported fluoroscopy time: 19.2 seconds. Reported DLB: 715.16 mGycm. Signed: Jason Pace Verified Date/Time: 02/16/2018 14:08:01 Reading Location: [address] Neuro Reading Room CT, BRAIN, WITHOUT [id number] 08:16:00Please perform stealth protocol with 1mm cutsFINAL [...] unremarkable. IMPRESSION: Stealth neuronavigation study. Signed: Jason Pace Verified Date/Time: 02/16/2018 08:16:15 Reading Location: [address] Neuro Reading Room MR, BRAIN, WITHOUT [id number] 15:03:00FINAL REPORT MRI Brain without contrast Clinical [...] hemorrhage, or hydrocephalus. Acute sphenoid sinusitis. Signed:Ryder Wilson Verified Date/Time: 02/04/2018 15:03:16 Reading Location: [facility] Radiology Reading Room [facility] METABOLIC [id number] 13:00:00 Test Item Value Reference Range Interpretation [...] DIALYSIS PATIEN TS. URINALYSIS W/ REFLEX URINE [id number] 11:28:00 Test Item Value Reference Range Interpretation [...] (test code = 2795) RAD, CHEST, 2 [id number] 11:25:00Reason for Exam:->parkinson's disease FINAL REPORT TECHNIQUE: [...] unremarkable. IMPRESSION:No acute cardiopulmonary abnormalities. Signed: Douglas Cristobal MDR eport Verified Date/Time: 02/04/2018 11:25:47 Reading Location: [address] Radiology Reading Room BASIC METABOLIC [id number] 11:10:00 Test Item Value Reference Range Interpretation [...] NOT APPLICABLE FOR DIALYSIS PATIEN TS. PROTHROMBIN TIME/[id number] 10:46:00 Test Item Value Reference Range Interpretation Comments PROTIME (BEAKER) (test code = 13.3 seconds 11.7-14.7 759) INR (BEAKER) (test code = 370) 1.0 <=5.9 RECOMMENDED COUMADIN/WARFARIN INR THERAPY RANGESSTANDARD DOSE: 2.0 - 3.0 Includes: PROPHYLAXIS forvenous thrombosis, systemic embolization; TREATMENT for venous thrombosis and/or pulmonary embolus.HIGH RISK: Target INR is 2.5-3.5 for patients with mechanical heart valves.PT/[id number] 10:46:00 Test Item Value Reference Range Interpretation [...] % 0-1 PERCENT (BEAKER) (test code = 3688)
[2021-03-13] MEDS ORDERED: BUPIVACAINE 0.5% PF 10 ML VIAL ONE (22:30)
[2021-03-13] MEDS ORDERED: LIDOCAINE 1% MPF 30 ML VIAL ONE (22:30)
[2021-03-13] MEDS ORDERED: HYDROCODONE/APAP 5/325 MG TAB ONE (22:30)
[2021-03-13] MEDS ORDERED: IBUPROFEN 400 MG TAB ONE (22:30)
[2021-03-13] MEDS ORDERED: ONDANSETRON 4 MG (ODT) TAB ONE (22:34)
--- NOTE | 2021-03-13 23:44 | ER ---
Nurse's Notes [facility] Name: Angela Mac Age: 66 yrs Sex: Female : 1955 Arrival Date: 03/13/2021 Time: 20:44 Bed DIS13 Private MD: Diagnosis: Dislocation Right thumb metacarpal phalangeal joint Presentation: 03/13 21:03 Chief complaint: Patient states: I just lost my balance and fell landing on my right lp1 hand on the wooden floor. Coronavirus screen: Client denies travel out of the [place] in the last 14 days. Ebola Screen: Patient negative for fever greater than or equal to 101.5 degrees Fahrenheit, and additional compatible Ebola Virus Disease symptoms Patient denies exposure to infectious person. Patient denies travel to an Ebola-affected area in the 21 days before illness onset. Initial Sepsis Screen: Does the patient meet any 2 criteria? No. Patient's initial sepsis screen is negative. Does the patient have a suspected source of infection? No. Patient's initial sepsis screen is negative. Risk Assessment: Do you want to hurt yourself or someone else? Patient reports no desire to harm self or others. Onset of symptoms was March 13, 2021. 21:03 Method Of Arrival: Wheelchair lp1 21:03 Acuity: MARY 4 lp1 Triage Assessment: 22:22 Injury Description: Deformity sustained to right hand. bb Historical: - Allergies: 21:05 No Known Allergies; lp1 - PMHx: 21:05 Parkinsons; hypertension; lp1 - PSHx: 21:05 brain stimulator; lp1 - Immunization history:: Client reports receiving the 2nd dose of the Covid vaccine, Date received: September 2020. - Social history:: Smoking status: Patient denies any tobacco usage or history of. Screenin:19 Abuse screen: Denies threats or abuse. Nutritional screening: No deficits noted. bb Tuberculosis screening: No symptoms or risk factors identified. Fall Risk None identified. Assessment: 22:19 General: Appears in no apparent distress. uncomfortable, Behavior is calm, cooperative. bb Pain: Complains of pain in right hand. Neuro: Level of Consciousness is awake, alert, obeys commands, Oriented to person, place, time, situation. Cardiovascular: Capillary refill < 3 seconds Patient's skin is warm and dry. Respiratory: Respiratory effort is even, unlabored. GI: No signs and/or symptoms were reported involving the gastrointestinal system. Derm: Skin is pink, warm \T\ dry. Musculoskeletal: Circulation, motion, and sensation intact. Bony deformity noted of right thumb right thumb. 03/14 00:08 Reassessment: Patient is alert, oriented x 3, equal unlabored respirations, skin bb warm/dry/pink. pt states she has no pain to her right hand at this time. Splint to right hand in place, checked by Kenneth WISEMAN. Pt verbalized understanding of and agrees to plan of care discharge instructions given pt assisted to exit via wheelchair by this RN accompanied by spouse. Vital Signs: 03/13 21:04 BP 137 / 74; Pulse 69; Resp 17; Temp 98.4; Pulse Ox 97% ; Weight 65.77 kg; Height 5 ft. lp1 7 in. (170.18 cm); Pain 7/10; 03/14 00:10 BP 166 / 79; Pulse 63; Resp 16 S; Pulse Ox 97% on R/A; Pain 0/10; bb 03/13 21:04 Body Mass Index 22.71 (65.77 kg, 170.18 cm) lp1 ED Course: 03/13 20:44 Patient arrived in ED. es 21:04 Triage completed. lp1 21:07 Arm band placed on left wrist. lp1 21:21 Hand Right 3 View XRAY In Process Unspecified. EDMS 21:41 Kenneth Chester PA is PHCP. cp 21:41 Kenneth Dobson MD is Attending Physician. cp 22:19 Patient has correct armband on for positive identification. Adult w/ patient. bb 23:41 Alen Abarca MD is Referral Physician. cp 23:47 XRAY Finger-Thumb RIGHT In Process Unspecified. EDMS 03/14 00:11 No provider procedures requiring assistance completed. Patient did not have IV access bb during this emergency room visit. Administered Medications: 03/13 22:18 Drug: HYDROcodone-acetaminophen 5 mg-325 mg 1 tabs {Note: RASS 0.} Route: PO; bb 23:10 Follow up: Response: No adverse reaction; Pain is decreased; RASS: Alert and Calm (0) bb 22:18 Drug: Ondansetron 4 mg Route: PO; bb 23:10 Follow up: Response: No adverse reaction bb 22:19 Drug: Ibuprofen 800 mg Route: PO; bb 23:10 Follow up: Response: No adverse reaction bb 23:10 Drug: Marcaine (bupivacaine) (0.5 %) 10 ml {Note: by Kenneth WISEMAN to affected area.} bb Volume: 10 ml; Route: Infiltration; 23:10 Drug: Lidocaine (1 %) 10 ml {Note: by Kenneth WISEMAN to affected area.} Volume: 20 ml; bb Route: Infiltration; Outcome: 23:44 Discharge ordered by MD. fang 03/14 00:11 Discharged to home via wheelchair, with family. bb Condition: stable Discharge instructions given to patient, Instructed on discharge instructions, follow up and referral plans. Demonstrated understanding of instructions, follow-up care, splint care. 00:11 Patient left the ED. bb Signatures: Dispatcher [employer] Dena Duarte Brenda, RN RN bb Abigail Dash RN RN lp1 Kenneth Chester PA PA cp
--- NOTE | 2021-03-13 23:44 | EDPHYS ---
Physician Documentation [facility] Name: Angela Mac Age: 66 yrs Sex: Female : 1955 Arrival Date: 03/13/2021 Time: 20:44 Bed DIS13 Private MD: ED Physician Kenneth Dobson HPI: 03/13 22:00 This 66 yrs old Female presents to ER via Wheelchair with complaints of Hand cp Injury, possible broken. 22:00 The patient or guardian reports injury. The complaints affect the right thumb. Context: cp resulted from a fall, while walking. Onset: The symptoms/episode began/occurred just prior to arrival. Associated signs and symptoms: Pertinent negatives: cyanosis distally, numbness distally. Severity of symptoms: in the emergency department the symptoms are unchanged, despite home interventions. Historical: - Allergies: 21:05 No Known Allergies; lp1 - PMHx: 21:05 Parkinsons; hypertension; lp1 - PSHx: 21:05 brain stimulator; lp1 - Immunization history:: Client reports receiving the 2nd dose of the Covid vaccine, Date received: September 2020. - Social history:: Smoking status: Patient denies any tobacco usage or history of. ROS: 22:05 MS/extremity: Positive for injury or acute deformity, decreased range of motion, of the cp right thumb, Negative for paresthesias. 22:05 Constitutional: Negative for body aches, chills, fever, poor PO intake. cp 22:05 Neck: Negative for pain with movement, pain at rest, stiffness. 22:05 Back: Negative for pain at rest, pain with movement. 22:05 Neuro: Negative for dizziness, headache, loss of consciousness, syncope, weakness. 22:05 All other systems are negative. Exam: 22:15 Constitutional: The patient appears in no acute distress, alert, awake, non-toxic, well cp developed, well nourished, uncomfortable. 22:15 Head/Face: Normocephalic, atraumatic. cp 22:15 Neck: ROM/movement: is normal, is supple, without pain, no range of motions limitations. 22:15 Chest/axilla: Inspection: normal. 22:15 Cardiovascular: Rate: normal. 22:15 Respiratory: the patient does not display signs of respiratory distress, Respirations: normal. 22:15 Musculoskeletal/extremity: Extremities: grossly normal except: noted in the right thumb: decreased ROM, deformity, pain, swelling, tenderness, ROM: limited active range of motion, in the right thumb proximal phalangeal joint, Perfusion: the extremity is normally perfused throughout, Sensation intact. 22:15 Neuro: Orientation: to person, place \T\ time. Mentation: is normal. Vital Signs: 21:04 BP 137 / 74; Pulse 69; Resp 17; Temp 98.4; Pulse Ox 97% ; Weight 65.77 kg; Height 5 ft. lp1 7 in. (170.18 cm); Pain 7/10; 03/14 00:10 BP 166 / 79; Pulse 63; Resp 16 S; Pulse Ox 97% on R/A; Pain 0/10; bb 03/13 21:04 Body Mass Index 22.71 (65.77 kg, 170.18 cm) lp1 Procedures: 00:05 Splinting: Splint applied to right thumb using Orthoglass splint, thumb spica type. cp applied by myself. post reduction film - reveals improved alignment, Examined by me, post splint application: neurovascular intact, Patient tolerated well. 00:05 Reduction: of the proximal joint right thumb, using manipulation, Patient tolerated cp well. Post reduction film - reveals improved alignment. MDM: 03/13 21:46 Patient medically screened. cp 23:44 Data reviewed: vital signs, nurses notes, radiologic studies, plain films. cp 23:44 Test interpretation: by ED physician or midlevel provider: plain radiologic studies. cp Counseling: I had a detailed discussion with the patient and/or guardian regarding: the historical points, exam findings, and any diagnostic results supporting the discharge/admit diagnosis, radiology results, the need for outpatient follow up, a hand specialist. Response to treatment: the patient's symptoms have markedly improved after treatment, and as a result, I will discharge patient. 03/13 21:07 Order name: Hand Right 3 View XRAY lp1 03/13 23:15 Order name: XRAY Finger-Thumb RIGHT cp 03/13 23:18 Order name: Thumb Spica Splint: orthoglass; Complete Time: 23:48 cp 03/13 23:48 Order name: Sling; Complete Time: 23:48 [id number] Administered Medications: 22:18 Drug: HYDROcodone-acetaminophen 5 mg-325 mg 1 tabs {Note: RASS 0.} Route: PO; bb 23:10 Follow up: Response: No adverse reaction; Pain is decreased; RASS: Alert and Calm (0) bb 22:18 Drug: Ondansetron 4 mg Route: PO; bb 23:10 Follow up: Response: No adverse reaction bb 22:19 Drug: Ibuprofen 800 mg Route: PO; bb 23:10 Follow up: Response: No adverse reaction bb 23:10 Drug: Marcaine (bupivacaine) (0.5 %) 10 ml {Note: by Kenneth WISEMAN to affected area.} bb Volume: 10 ml; Route: Infiltration; 23:10 Drug: Lidocaine (1 %) 10 ml {Note: by Kenneth WISEMAN to affected area.} Volume: 20 ml; bb Route: Infiltration; Disposition: 03/14 00:15 Chart complete. cp 07:47 Co-signature as Attending Physician, Kenneth Dobson MD I agree with the assessment and syed plan of care. Disposition Summary: 03/13/21 23:44 Discharge Ordered Location: Home cp Problem: new cp Symptoms: have improved cp Condition: Stable cp Diagnosis - Dislocation Right thumb metacarpal phalangeal joint cp Followup: cp - With: Alen Abarca MD - When: 2 - 3 days - Reason: Recheck today's complaints Discharge Instructions: - Discharge Summary Sheet cp - Finger or Thumb Dislocation cp Forms: - Medication Reconciliation Form cp - Thank You Letter cp - Antibiotic Education cp - Prescription Opioid Use cp Prescriptions: - Ibuprofen 800 mg Oral Tablet - take 1 tablet by ORAL route every 8 hours As needed take with food; 30 tablet; cp Refills: 0, Product Selection Permitted Signatures: Dispatcher [employer] Kenneth Rios MD MD cha Ballard, Brenda, RN RN Abigail Quintana, RN RN lp1 Kenneth Chester PA PA cp Bryson, James, RN RN [id number]
[2021-03-14 00:41] VITALS: TEMP 98.4; O2SAT 97
[2021-03-14 00:42] VITALS: BP 166/79
--- NOTE | 2021-03-14 08:35 | RAD REPORT ---
EXAM DESCRIPTION: RAD - Hand Right 3 View - 03/13/2021 9:21 pm CLINICAL HISTORY: DEFORMITY COMPARISON: No comparisons FINDINGS: Dislocation is present involving the first metacarpal phalangeal joint. Advanced degenerat karol changes present involving the first carpal/metacarpal articulation. 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
--- NOTE | 2021-03-14 08:55 | RAD REPORT ---
EXAM DESCRIPTION: RAD - Finger-Thumb Right - 03/13/2021 11:47 pm CLINICAL HISTORY: post reduction Pain and swelling COMPARISON: Hand Right 3 View dated 03/13/2021 FINDINGS: The previously noted dislocation at the level of the first MCP joint has been reduced and placed within a splint. No gross fracture evident.
== END 2021-03-14 00:11 | disposition home or self-care (01) ==
LOC: ER 19:43
PROC: 0RSUXZZ Reposition Right Metacarpophalangeal Joint, External Approach (ICD-10-PCS; principal; 2021-03-14)
DX: S63.114A Dislocation of metacarpophalangeal joint of right thumb, initial encounter (principal); W18.30XA Fall on same level, unspecified, initial encounter; Y93.01 Activity, walking, marching and hiking; G20 Parkinson's disease; I10 Essential (primary) hypertension
CPT/HCPCS: 99283

== ENCOUNTER 2022-04-08 09:11 | Emergency (ER) | payer OTHER, BC ==
--- OUTSIDE RECORDS SUMMARY | 2022-04-08 09:22 | XMS REPORT | Continuity of Care Document ---
:1955 Author Organization [facility] t Address [address] [address] Care Team Providers Name Role Phone Graham JAUREGUI, Racquel Mattson Primary Care Physician [phone] CARMINE JEAN Attending Clinician Unavailable NICOLLE CASAS Attending Clinician Unavailable MARISSA LINK Attending Clinician Unavailable BLANCA MONGE Attending Clinician Unavailable Howard Stephens Attending Clinician Unavailable Patricia Forrest MD Attending Clinician MILES DE LA CRUZ Attending Clinician Unavailable PATRICIA FORREST Attending Clinician Unavailable Marissa Link MD Attending Clinician Parag ROLLED SEAT TRIMMER-BC, Nicolle Veras Attending Clinician [phone] Nicolle Tuttle NP Attending Clinician [phone] Carmine Jean MD Attending Clinician Iglesia Michaud MD Attending Clinician Adrián Mims MD Attending Clinician Duran JAUREGUI, Everette Attending Clinician Anna Riddle MD Attending Clinician [phone] Pedro Green V Attending Clinician Unavailable Augusto JAUREGUI, Nicolle Lao Attending Clinician UnavailSarahy Cade DO Attending Clinician Nicolle Casas MD Attending Clinician 1, Neuro Fellow Attending Clinician POOJA RUSSELL Attending Clinician Unavailable CARMINE JEAN Admitting Clinician Unavailable NICOLLE CASAS Admitting Clinician Unavailable Howard Stephens Admitting Clinician Unavailable Iveth Brooks Admitting Clinician Unavailable Payers Payer Name Policy Type Policy Number Effective Date Expiration Date S ource BCBS PPO POS EPO [id number] 2020 00:00:00 CHOICE PPO/EPO - BCBS [id number] CVCP-BCBS [id number] CHOICE/CHOICE [id number] PLUS/OPTIONS PPO - [facility] Problems Condition Condition Condition Status Onset Resolution Last Treating Co mments Source Name Details Category Date Date Treatment Clinician Date Research Research Disease Active [facility] study study 5 [facility] patient patient 00:00: of [id number] Medicin Abbvie Abbvie e Incomplete Incomplete Disease Active 2019-[address] emptying [facility]ying 2-14 [facility] bladder of bladder 00:00: Me dical 00 [place] OAB OAB Disease Active 2019-[address] [facility] (overactiv (overactiv 2-14 [facility] e bladder) e bladder) 00:00: Me dical 00 Center SJM GREENE SJM GREENE Disease Active [facility] BILATERAL BILATERAL 8-30 [facility] GPI DBS GPI DBS 00:00: of 00 Medicin e Fatigue Fatigue Disease Active [facility] 830 [facility] 00:00: of 00 Medicin e S/P deep S/P deep Disease Active [facility] brain brain 03-20 [facility] stimulator stimulator 00:00: of placement placement 00 Medi isabel e Parkinson' Parkinson' Disease Active [facility] disease s disease 7-19 [facility] with EBS with EBS 00:00: Medica l (electrica (electrica 00 Ce nter l brain l brain stimulatio stimulatio n) n) Parkinson' Parkinson' Disease Active [facility] disease s disease 7-18 [facility] 00:00: Medical 00 Center Elevated Elevated Disease Active Overview: Me thodi hemoglobin hemoglobin 1-[address] A1c A1c 00:00: g of this Hosp[facility] 00 note l might be different from the original. Concerned about previous numbers being highLast Assessmen t & Plan: Formattin g of this note might be different from the original. Recheck A1c and follow up in 3 months Hypertensi Hypertensi Disease Active [facility] on on 11-30 [facility] 00:00: of 00 Medicin e Physiologi Physiologi Disease Active [facility] c 11-30 [facility] anisocoria anisocoria 00:00: of 00 Medicin e Night Night Disease Active [facility] sweats sweats 11-30 [facility] 00:00: of 00 Medicin e Elevated Elevated Disease Active Overview: Me thodi [...] 4 hours of taking thyroid medicatio ns. Parkinson Parkinson Disease Active Overview: Methodi disease disease Formattin st g of this Hospita note l might be different from the original. dx 4 years ago; respondin g to treatment ; sinemet - sees Dr. Monk - Last Assessmen t & Plan: Formattin g of this note might be different from the original. Per neurology Allergies, Adverse Reactions, Alerts Allergy Allergy Status Severity Reaction(s) Onset Inactive Treating Comm ents Source Name Type Date Date Clinician No Known DA Active [facility] 04[facility]30 [facility] d [facility] NO KNOWN Allergy Active [facility] Family History Family Member Diagnosis Comments Start Date Stop Date Source Natural father Colon cancer [facility] Natural mother Lung cancer [facility] Social History Social Habit Start Date Stop Date Quantity Comments Source History SDOH [facility] Alcohol Frequency Medical [facility] History SDOH [facility] Alcohol Std Drinks Medica l Center History SDOH [facility] Alcohol Binge Medical Cady ter Exposure to 2021-11-09 2021-11-19 Not sure [facility] Princess e SARS-CoV-2 (event) 00:00:00 10:09:00 of Med icine Cigarette 2020-11-05 2020-11-05 [facility] pack-years 00:00:00 00:00:00 of Medicine Alcohol intake 2020-10-22 2020-10-22 [facility] (finding) Alcohol Comment 2020-10-18 2020-10-18 "seldom" [facility] 00:[facility]00 00:00:00 Medical Center Tobacco use and 2018-02-04 2018-02-[address] [facility] exposure 00:00:00 00:00:00 [facility] Sex Assigned At [address] [facility]es 00:00:00 00:00:00 Medical Center Smoking Status Start Date Stop Date Source Never smoked tobacco [facility] of Medicine Medications Ordered Filled Start Stop Current Ordering Indication Dosage Frequency Signature Comments Components Source Medication Medication Date Date Medication? Clinician (SIG) Name Name ciprofloxac Yes [id number] 500mg Take 1 [facility] in (CIPRO) 5-16 Tablet by [facility] 500 MG 00:00: mouth two of tablet 00 times Medicin daily. e amoxicillin Yes [id number] 1{tbl} Take 1 [facility] -clavulanat 4-26 Tablet by Col [facility] e 00:00: mouth two of (AUGMENTIN) 00 times Medicin 875-125 MG daily. e per tablet Triamcinolo 2022-0 Yes by Nasal [facility] ne 4-21 route [facility] Acetonide 15:40: daily as of (NASACORT 50 needed. Medicin AQ NA) e Apremilast Yes Take by [facility] (OTEZLA) 30 4-21 mouth. Colleg e MG TABS 15:40: of 50 Medicin e ibuprofen 0 Yes 200mg Take 200 [facility] (MOTRIN) 4-21 mg by College 200 mg 15:40: mouth of tablet 50 every 6 Medicin hours as e needed for Pain. metoprolol Yes 12.5mg Take 12.5 [facility] (LOPRESSOR) 4-21 mg by [facility] 25 MG 15:40: mouth two of tablet 50 times Medicin daily. e docusate 0 Yes 100mg Take 100 [facility] sodium 4-21 mg by [facility] (COLACE) 15:40: mouth two of 100 MG 50 times Medicin capsule daily. e Pimavanseri 0 Yes 1{te Take 1 [facility] Tartrate 4-21 t} Caplet by [facility] soto (NUPLAZID) 15:40: mouth of 34 MG CAPS 50 daily. Medicin e Triamcinolo Yes by Nasal [facility] ne 4-21 route [facility] Acetonide 15:40: daily as of (NASACORT 50 needed. Medicin AQ NA) e Apremilast Yes Take by [facility] (OTEZLA) 30 4-21 mouth. Colleg e MG TABS 15:40: of 50 Medicin e ibuprofen Yes 200mg Take 200 [facility] (MOTRIN) 4-21 mg by [facility] 200 mg 15:40: mouth of tablet 50 every 6 Medicin hours as e needed for Pain. metoprolol Yes 12.5mg Take 12.5 [facility] (LOPRESSOR) 4-21 mg by [facility] 25 MG 15:40: mouth two of tablet 50 times Medicin daily. e docusate 2021-0 Yes 100mg Take 100 [facility] sodium 4-21 mg by [facility] (COLACE) 15:40: mouth two of 100 MG 50 times Medicin capsule daily. e Pimavanseri 2021-0 Yes 1{te Take 1 [facility] Tartrate 4-21 t} Caplet by [facility] soto (NUPLAZID) 15:40: mouth of 34 MG CAPS 50 daily. Medicin e meloxicam 0 2021- No 7.5mg Take 7.5 [facility] (MOBIC) 7.5 4-21 04-21 mg by [facility] e MG tablet 15:40: 00:00 mouth of 27 :00 daily. Medicin e amoxicillin 0 2021- No 500mg Take 500 [facility] (AMOXIL) 4-21 04-21 mg by [facility] 500 mg 15:40: 00:00 mouth two of capsule 03 :00 times Medicin daily. e chlorhexidi Yes SWAB [facility] -21 IMPLANT [facility] (PERIDEX) 00:00: WITH of 0.12 % 00 SOLUTION Medicin solution TWICE e DAILY AFTER BRUSHING hydrocodone Yes TAKE 1 [facility] -acetaminop 3-21 TABLET BY Col [facility]ge anatoly (SimpleTuition) 00:00: MOUTH of 7.5-325 MG 00 EVERY 4 TO Med icin per tablet 6 HOURS e NEEDED FOR PAIN ondansetron Yes DISSOLVE 1 [facility] (ZOFRAN-ODT 3-21 TABLET Colleg e ) 4 mg 00:00: UNDER THE of disintegrat 00 TONGUE Medici n ing tablet EVERY 6 e HOURS NEEDED FOR NAUSEA chlorhexidi Yes SWAB [facility] -21 [facility] (PERIDEX) 00:00: WITH of 0.12 % 00 SOLUTION Medicin solution TWICE e DAILY AFTER BRUSHING hydrocodone 0 Yes TAKE 1 [facility] -acetaminop 3-21 TABLET BY Col [facility]ge hen (NORCO) 00:00: MOUTH of 7.5-325 MG 00 EVERY 4 TO Med icin per tablet 6 HOURS e NEEDED FOR PAIN ondansetron Yes DISSOLVE 1 [facility] (ZOFRAN-ODT 3-21 TABLET Colleg e ) 4 mg 00:00: UNDER THE of disintegrat 00 TONGUE Medici n ing tablet EVERY 6 e HOURS NEEDED FOR NAUSEA Pimavanseri 0 Yes 1{te Take 1 [facility] Tartrate 3-03 t} Caplet by [facility] soto (NUPLAZID) 15:42: mouth of 34 MG CAPS 18 daily. Medicin e Apremilast 2022-0 Yes Take by [facility] (OTEZLA) 30 3-03 mouth. Colleg e MG TABS 11:11: of 09 Medicin e meloxicam 0 Yes 7.5mg Take 7.5 [facility] (MOBIC) 7.5 3-03 mg by [facility] MG tablet 11:11: mouth of 09 daily. Medicin e ibuprofen 0 Yes 200mg Take 200 [facility] (ADVIL) 200 3-03 mg by [facility] mg tablet 11:11: mouth of 09 every 6 Medicin hours as e needed for Pain. metoprolol 0 Yes 25mg Take 25 mg [facility] (LOPRESSOR) 3-03 by mouth [facility] 25 MG 11:11: two times of tablet 09 daily. Medicin e amoxicillin 0 Yes 500mg Take 500 [facility] (AMOXIL) 3-03 mg by [facility] 500 mg 11:11: mouth two of capsule 09 times Medicin daily. e docusate 0 Yes 100mg Take 100 [facility] sodium 3-03 mg by [facility] (COLACE) 11:11: mouth two of 100 MG 09 times Medicin capsule daily. e rivastigmin 0 Yes 1{patch Place 1 [facility] e 9.5 3-03 } Patch onto College MG/24HR 00:00: the skin of PT24 00 daily. Medicin e rivastigmin 2021-0 Yes 1{patch Place 1 [facility] e 9.5 3-03 } Patch onto [facility] MG/24HR 00:00: the skin of PT24 00 daily. Medicin e rivastigmin 2021-0 Yes 1{patch Place 1 [facility] e 9.5 3-03 } Patch onto College MG/24HR 00:00: the skin of PT24 00 daily. Medicin e trazodone 2021-0 Yes 100mg TAKE 2 [facility] (DESYREL) 2-09 TABLETS BY [facility] 50 MG 00:00: MOUTH AT of tablet 00 BEDTIME Medicin e trazodone 2021-0 Yes 100mg TAKE 2 [facility] (DESYREL) 2-09 TABLETS BY [facility] 50 MG 00:00: MOUTH AT of tablet 00 BEDTIME Medicin e trazodone 2021-0 Yes 100mg TAKE 2 [facility] (DESYREL) 2-09 TABLETS BY [facility] 50 MG 00:00: MOUTH AT of tablet 00 BEDTIME Medicin e rivastigmin 2021- No APPLY 1 [facility] 4.6 2-03 03-03 PATCH [facility] MG/24HR 00:00: 00:00 EXTERNALLY of PT24 00 :00 TO THE Medicin SKIN EVERY e 24 HOURS Triamcinolo 2021- Yes by Nasal [facility] ne 1-13 route [facility] Acetonide 13:14: daily as of (NASACORT 19 needed. Medicin AQ NA) e Triamcinolo 0 Yes by Nasal [facility] ne 1-13 route [facility] Acetonide 13:14: daily as of (NASACORT 19 needed. Medicin AQ NA) e Triamcinolo Yes by Nasal [facility] ne 1-13 route [facility] Acetonide 13:14: daily as of (NASACORT 19 needed. Medicin AQ NA) e levothyroxi 2021- No 75ug Take 75 [facility] ne 1-13 01-13 mcg by [facility] (SYNTHROID) 13:14: 00:00 mouth of 75 MCG 11 :00 daily. Medicin tablet e mirtazapine 2020-08 Yes TAKE 2 [facility] (REMERON) 2-29 TABLETS BY [facility] 15 MG 00:00: MOUTH of tablet 00 EVERY Medicin NIGHT e levothyroxi 2020-08 Yes TAKE 1 [facility] ne 2-29 TABLET BY [facility] (SYNTHROID) 00:00: MOUTH of 88 MCG 00 DAILY 30 Medicin tablet MINUTES e BEFORE BREAKFAST mirtazapine 2020-08 Yes TAKE 2 [facility] (REMERON) 2-29 TABLETS BY [facility] 15 MG 00:00: MOUTH of tablet 00 EVERY Medicin NIGHT e levothyroxi 2020-08 Yes TAKE 1 [facility] ne 2-29 TABLET BY [facility] (SYNTHROID) 00:00: MOUTH of 88 MCG 00 DAILY 30 Medicin tablet MINUTES e BEFORE BREAKFAST mirtazapine 2020-08 Yes TAKE 2 [facility] (REMERON) 2-29 TABLETS BY [facility] 15 MG 00:00: MOUTH of tablet 00 EVERY Medicin NIGHT e levothyroxi 2020-08 Yes TAKE 1 [facility] ne 2-29 TABLET BY [facility] (SYNTHROID) 00:00: MOUTH of 88 MCG 00 DAILY 30 Medicin tablet MINUTES e BEFORE BREAKFAST mirtazapine 2020-08 Yes TAKE 2 [facility] (REMERON) 2-29 TABLETS BY [facility] 15 MG 00:00: MOUTH of tablet 00 EVERY Medicin NIGHT e levothyroxi 2020-08 Yes TAKE 1 [facility] ne 2-29 TABLET BY [facility] (SYNTHROID) 00:00: MOUTH of 88 MCG 00 DAILY 30 Medicin tablet MINUTES e BEFORE BREAKFAST sulfamethox 2020-08 Yes [id number] 1{tbl} Take 1 [facility] azole-trime 1-11 Tablet by Col [facility] thoprim 00:00: mouth two of (BACTRIM 00 times Medicin DS) 800-160 daily. e MG per tablet sulfamethox 2020-08- No [id number] 1{tbl} Take 1 [facility] azole-trime 1-11 -13 Tablet by Co llege thoprim 00:00: 00:00 mouth two of (BACTRIM 00 :00 times Medicin DS) 800-160 daily. e MG per tablet Rasagiline 2020-08 Yes 1{tbl} Take 1 [facility] Mesylate 1 1-03 Tablet by [facility] MG TABS 00:00: mouth of 00 daily. Medicin e Rasagiline 2020-08 Yes 1{tbl} Take 1 [facility] Mesylate 1 1-03 Tablet by [facility] MG TABS 00:00: mouth of 00 daily. Medicin e Rasagiline 2020-08 Yes 1{tbl} Take 1 [facility] Mesylate 1 1-03 Tablet by [facility] MG TABS 00:00: mouth of 00 daily. Medicin e Rasagiline 2020-08 Yes 1{tbl} Take 1 [facility] Mesylate 1 1-03 Tablet by [facility] MG TABS 00:00: mouth of 00 daily. Medicin e Rasagiline 2020-08 Yes 1{tbl} Take 1 [facility] Mesylate 1 1-03 Tablet by [facility] MG TABS 00:00: mouth of 00 daily. Medicin e trazodone Yes 100mg Take 2 [facility] (DESYREL) 8-16 Tablets by [facility] 50 MG 00:00: mouth at of tablet 00 bedtime. Medicin e trazodone 2021-0 Yes 100mg Take 2 [facility] (DESYREL) 8-16 Tablets by [facility] 50 MG 00:00: mouth at of tablet 00 bedtime. Medicin e losartan Yes [id number] 25mg TAKE 1 [facility] (COZAAR) 25 7-08 TABLET BY Col [facility]ge MG tablet 00:00: MOUTH of 00 DAILY Medicin e losartan 2022- No [id number] 25mg TAKE 1 [facility] (COZAAR) 25 7-08 01-13 TABLET BY Co llege MG tablet 00:00: 00:00 MOUTH of 00 :00 DAILY Medicin e Rotigotine Yes 1 patch [facility] (NEUPRO) 6 7-06 daily to Colle ge MG/24HR 00:00: skin of PT24 00 Medicin e trazodone Yes 100mg Take 2 [facility] (DESYREL) 7-06 Tablets by [facility] 50 MG 00:00: mouth at of tablet 00 bedtime. Medicin e Rotigotine Yes 1 patch [facility] (NEUPRO) 6 7-06 daily to Colle ge MG/24HR 00:00: skin of PT24 00 Medicin e Rotigotine 0 Yes 1 patch [facility] (NEUPRO) 6 7-06 daily to Colle ge MG/24HR 00:00: skin of PT24 00 Medicin e Rotigotine 2020-0 Yes 1 patch [facility] (NEUPRO) 6 7-06 daily to Colle ge MG/24HR 00:00: skin of PT24 00 Medicin e Rotigotine 2020-0 Yes 1 patch [facility] (NEUPRO) 6 7-06 daily to Colle ge MG/24HR 00:00: skin of PT24 00 Medicin e Rotigotine 2020-0 Yes 1 patch [facility] (NEUPRO) 6 7-06 daily to Colle ge MG/24HR 00:00: skin of PT24 00 Medicin e Rotigotine 2020-0 Yes 1 patch [facility] (NEUPRO) 6 7-06 daily to Colle ge MG/24HR 00:00: skin of PT24 00 Medicin e meloxicam 2020-0 Yes [id number] TAKE 1 [facility] (MOBIC) 7.5 6-21 TABLET BY Col [facility] MG tablet 00:00: MOUTH of 00 EVERY DAY Medicin e meloxicam Yes [id number] TAKE 1 [facility] (MOBIC) 7.5 6-21 TABLET BY Col [facility] MG tablet 00:00: MOUTH of 00 EVERY DAY Medicin e meloxicam 2- No [id number] TAKE 1 [facility] (MOBIC) 7.5 6-21 - TABLET BY Co llege MG tablet 00:00: 00:00 MOUTH of 00 :00 EVERY DAY Medicin e zolpidem Yes 5mg Take 1 [facility] (AMBIEN) 5 5-28 Tablet by [facility] MG tablet 00:00: mouth of 00 nightly as Medicin needed for e Sleep. zolpidem Yes 5mg Take 1 [facility] (AMBIEN) 5 5-28 Tablet by [facility] MG tablet 00:00: mouth of 00 nightly as Medicin needed for e Sleep. zolpidem 2021- No 5mg Take 1 [facility] (AMBIEN) 5 5-28 - Tablet by Col [facility]ge MG tablet 00:00: 00:00 mouth of 00 :00 nightly as Medicin needed for e Sleep. amoxicillin Yes [id number] 1{tbl} Take 1 [facility] -clavulanat 5-24 Tablet by Col [facility]ge e 00:00: mouth two of (AUGMENTIN) 00 times Medicin 875-125 MG daily. e per tablet losartan Yes [id number] 25mg TAKE 1 [facility] (COZAAR) 25 5-10 TABLET BY Col [facility]ge MG tablet 00:00: MOUTH of 00 DAILY Medicin e ciprofloxac Yes [id number] 500mg Take 1 [facility] in (CIPRO) 4-26 Tablet by [facility] 500 MG 00:00: mouth two of tablet 00 times Medicin daily. e Triamcinolo Yes by Nasal [facility] ne 4-06 route [facility] Acetonide 20:27: daily as of (NASACORT 59 needed. Medicin AQ NA) e levothyroxi Yes 75ug Take 75 [facility] [facility] ne 4-06 mcg by [facility] (SYNTHROID) 20:27: mouth of 75 MCG 59 daily. Medicin tablet e Triamcinolo Yes by Nasal [facility] ne 4-06 route [facility] 20:27: daily as of (NASACORT 59 needed. Medicin AQ NA) e levothyroxi Yes 75ug Take 75 [facility] [facility] ne 4-06 mcg by [facility] (SYNTHROID) 20:27: mouth of 75 MCG 59 daily. Medicin tablet e Loratadine 2020- No 10mg Take 10 mg [facility] (CLARITIN) 4-06 04-06 by mouth [facility] 10 MG CAPS 20:27: 00:00 daily as of 18 :00 needed. Medicin e Triamcinolo Yes by Nasal [facility] ne 4-06 route [facility] 15:27: daily as of (NASACORT 59 needed. Medicin AQ NA) e levothyroxi Yes 75ug Take 75 [place] [facility] ne 4-06 mcg by [facility] (SYNTHROID) 15:27: mouth of 75 MCG 59 daily. Medicin tablet e Triamcinolo Yes by Nasal [facility] ne 4-06 route [facility] 15:27: daily as of (NASACORT 59 needed. Medicin AQ NA) e levothyroxi Yes 75ug Take 75 [facility] ne 4-06 mcg by [facility] (SYNTHROID) 15:27: mouth of 75 MCG 59 daily. Medicin tablet e rasagiline Yes QD Take by [facility] (AZILECT) 1 3-23 [facility] mg Tab 12:57: daily. Medical 41 Center rotigotine Yes 8mg QD Place [address] (NEUPRO) 8 3-23 onto the [facility] mg/24 hour 12:57: skin Medical PT24 41 daily. Center carbidopa-l Yes 1{tbl} Take [address] evodopa 3-23 tablet by [facility] (SINEMET) 12:57: mouth as Medi simona 25-100 mg 41 needed . Center per tablet carbidopa-l Yes by Contin. [facility] evodopa 3-23 Intratheca [facility] 4.63-20 12:57: l Infusion Medi simona mg/mL insp 41 route. Center tamsulosin Yes .4mg QD Take 0.[address] (FLOMAX) 3-23 mg by [facility] 0.4 mg Cap 12:57: mouth Medica l 24 hr 41 daily. [place] capsule Lactobacill Yes Take by [facility] us 3-23 mouth. [facility] acidophilus 12:57: Medica l (PROBIOTIC 41 Center ORAL) cranberry Yes Take by [facility] extract 200 3-23 mouth. [facility] mg Cap 12:57: Medical 41 Center mirtazapine Yes 30mg QD Take [address] (REMERON) 3-23 by mouth [facility] 30 MG 12:57: nightly. Medical tablet 41 [place] rivastigmin Yes 1{patch QD Place [address] e (EXELON) 3-23 } patch onto Reji es 4.6 mg/24 12:57: the skin Medi simona hr patch 41 daily. [place] meloxicam Yes 7.5mg QD Take 7.[address] (MOBIC) 7.5 3-23 mg by [facility] MG tablet 12:57: mouth Medical 41 daily. [place] levothyroxi Yes 88ug Take [address] ne 3-23 mcg by [facility] (SYNTHROID, 12:57: mouth Medic al LEVOTHROID) 41 Every Center 88 MCG morning on tablet an empty stomach. docusate Yes 100mg QD Take [address] sodium 3-23 mg by [facility] (COLACE) 12:57: mouth Medical 100 MG 41 daily. [place] capsule MULTIVITAMI Yes Take by [facility] N ORAL 3-23 mouth. [facility] 12:57: Medical 41 [place] losartan Yes 25mg QD Take [address] (COZAAR) 25 3-23 by mouth Luke s MG tablet 12:57: every Medical 41 evening. [place] ciprofloxac Yes 500mg Q.5D Take [address] in HCl 3-23 mg by [facility] (CIPRO) 500 12:57: mouth 2 Med ical MG tablet 41 (two) Center times daily. rasagiline Yes QD Take by [facility] (AZILECT) 1 3-23 mouth [facility] mg Tab 12:57: daily. Medical 41 [place] rotigotine Yes 8mg QD Place [address] (NEUPRO) 8 3-23 onto the [facility] mg/24 hour 12:57: skin Medical PT24 41 daily. [place] carbidopa-l Yes 1{tbl} Take [address] evodopa 3-23 tablet by [facility] (SINEMET) 12:57: mouth as Medi simona 25-100 mg 41 needed . Center per tablet carbidopa-l Yes by Contin. [facility] evodopa 3-23 Intratheca [facility] 4.63-20 12:57: l Infusion Medi simona mg/mL insp 41 route. [place] tamsulosin Yes .4mg QD Take 0.[address] (FLOMAX) 3-23 mg by [facility] 0.4 mg Cap 12:57: mouth Medica l 24 hr 41 daily. [place] capsule Lactobacill Yes Take by [facility] us 3-23 mouth. [facility] acidophilus 12:57: Medica l (PROBIOTIC 41 Center ORAL) cranberry Yes Take by [facility] extract 200 3-23 mouth. [facility] mg Cap 12:57: Medical 41 [place] mirtazapine Yes 30mg QD Take [address] (REMERON) 3-23 by mouth [facility] 30 MG 12:57: nightly. Medical tablet 41 [place] rivastigmin Yes 1{patch QD Place [address] e (EXELON) 3-23 } patch onto Reji es 4.6 mg/24 12:57: the skin Medi simona hr patch 41 daily. [place] meloxicam Yes 7.5mg QD Take 7.[address] (MOBIC) 7.5 3-23 mg by [facility] MG tablet 12:57: mouth Medical 41 daily. [place] levothyroxi Yes 88ug Take [address] ne 3-23 mcg by [facility]ukes (SYNTHROID, 12:57: mouth Medic al LEVOTHROID) 41 Every Center 88 MCG morning on tablet an empty stomach. docusate Yes 100mg QD Take [address] sodium 3-23 mg by [facility] (COLACE) 12:57: mouth Medical 100 MG 41 daily. [place] capsule MULTIVITAMI Yes Take by [facility] N ORAL 3-23 mouth. [facility] 12:57: Medical 41 [place] losartan Yes 25mg QD Take [address] (COZAAR) 25 3-23 by mouth Luke [facility] MG tablet 12:57: every Medical 41 evening. Center ciprofloxac Yes 500mg Q.5D Take [address] in HCl 3-23 mg by [facility] (CIPRO) 500 12:57: mouth 2 Med ical MG tablet 41 (two) Center times daily. ciprofloxac 2020- No [id number] 500mg Take 1 [facility] in (CIPRO) 3- 04-06 Tablet by Col lege 500 MG 00:00: 00:00 mouth two of tablet 00 :00 times Medicin daily. e levothyroxi 2020- No 50ug Take [address] ne 10-18-19 mcg by [facility] (SYNTHROID, 11:38: 00:00 mouth Medi simona LEVOTHROID) 53 :00 Every Center 50 MCG morning on tablet an empty stomach. loratadine 2020- No allergic 10mg QD Take [address] (CLARITIN) 10-18-19 rhinitis by mouth [facility]ukes 10 mg 11:36: 00:00 daily. Medical tablet 25 :00 [place] carbidopa-l 2020- No parkinsonis 1{tbl} QD Take [address] evodopa 10-18-19 m tablet by [facility] (SINEMET 11:33: 00:00 mouth Medical CR) 50-200 40 :00 nightly. Cente r mg per tablet losartan Yes 25mg Take 1 [facility] (COZAAR) 25 3-16 Tablet by Col lege MG tablet 00:00: mouth of 00 daily. Medicin e losartan Yes 25mg Take 1 [facility] (COZAAR) 25 3-16 Tablet by Col lege MG tablet 00:00: mouth of 00 daily. Medicin e Tamsulosin Yes [id number] .4mg Take 0.4 [facility] HCl 0.4 MG 3-09 mg by [employer] CAPS 00:00: mouth two of 00 times Medicin daily. e Tamsulosin Yes [id number] .4mg Take 0.4 [facility] HCl 0.4 MG 3-09 mg by [employer] CAPS 00:00: mouth two of 00 times Medicin daily. e Tamsulosin Yes [id number] .4mg Take 0.4 [facility] HCl 0.4 MG 3-09 mg by [facility] CAPS 00:00: mouth two of 00 times Medicin daily. e Tamsulosin Yes [id number] .4mg Take 0.4 [facility] HCl 0.4 MG 3-09 mg by [facility] CAPS 00:00: mouth two of 00 times Medicin daily. e Tamsulosin 2021- No [id number] .4mg Take 0.4 [facility] HCl 0.4 MG 3-09 01-13 mg by [facility] CAPS 00:00: 00:00 mouth two of 00 :00 times Medicin daily. e amoxicillin 2020- No [id number] 1{tbl} Take 1 [facility] -clavulanat 3-05 04-06 Tablet by Evelia morataya e 00:00: 00:00 mouth two of (AUGMENTIN) 00 :00 times Medicin 875-125 MG daily. e per tablet doxazosin 2020- No 2mg Take 2 [facility] (CARDURA) 1 2-24 04-06 Tablets by [facility] MG tablet 00:00: 00:00 mouth of 00 :00 every Medicin evening. e Take at bedtime Rotigotine Yes APPLY 1 [facility] (NEUPRO) 4 2-16 PATCH [facility] MG/24HR 00:00: EXTERNALLY of PT24 00 TO THE Medicin SKIN DAILY e Rotigotine Yes APPLY 1 [facility] (NEUPRO) 4 2-16 PATCH College MG/24HR 00:00: EXTERNALLY of PT24 00 TO THE Medicin SKIN DAILY e Rotigotine 2020- No APPLY 1 [facility] (NEUPRO) 4 2-16 07-06 PATCH College MG/24HR 00:00: 00:00 EXTERNALLY of PT24 00 :00 TO THE Medicin SKIN DAILY e melatonin 3 2020- No 6mg QD Take [address] [facility] mg Tab 09-03 by mouth [facility] tablet 09:47: 00:00 nightly . Medic al 11 :00 Center entacapone 2020- No 200mg [id number] Take [address] (COMTAN) 09-03 [id number] mg by Reji es 200 mg 09:46: 00:00 7D mouth 6 Medical tablet 49 :00 (six) Center times daily. amoxicillin 2020- No Q.5D Take by [facility] /potassium 09-03 mouth 2 [facility] clav 09:46: 00:00 (two) Medical (AUGMENTIN 01 :00 times Center ORAL) daily. rivastigmin Yes 1{patch Apply 1 [facility] e (EXELON) 1-26 } Patch Goss 4.6 MG/24HR 00:00: topically o f PT24 00 every 24 Medicin hours. e rivastigmin Yes 1{patch Apply 1 [facility] e (EXELON) 1-26 } Patch Goss 4.6 MG/24HR 00:00: topically o f PT24 00 every 24 Medicin hours. e rivastigmin Yes 1{patch Apply 1 [facility] e (EXELON) 1-26 } Patch Goss 4.6 MG/24HR 00:00: topically o f PT24 00 every 24 Medicin hours. e rivastigmin 0 Yes 1{patch Apply 1 [facility] e (EXELON) 1-26 } Patch Goss 4.6 MG/24HR 00:00: topically o f PT24 00 every 24 Medicin hours. e rivastigmin 0 Yes 1{patch Apply 1 [facility] e (EXELON) 1-26 } Patch Goss 4.6 MG/24HR 00:00: topically o f PT24 00 every 24 Medicin hours. e Loratadine Yes 10mg Take 10 mg [facility] (CLARITIN) 1-20 by mouth Colle ge 10 MG CAPS 15:43: daily as of 45 needed. Medicin e Triamcinolo Yes by [facility]al [facility] 1-20 route [facility] Acetonide 15:43: daily as of (NASACORT 45 needed. Medicin AQ NA) e levothyroxi Yes 75ug Take 75 [facility] ne 1-20 mcg by [facility] (SYNTHROID) 15:43: mouth of 75 MCG 45 daily. Medicin tablet e Loratadine Yes 10mg Take 10 mg [facility] (CLARITIN) 1-20 by mouth Colle ge 10 MG CAPS 15:43: daily as of 45 needed. Medicin e Triamcinolo Yes by Nasal [facility] 1-20 route [facility] Acetonide 15:43: daily as of (NASACORT 45 needed. Medicin AQ NA) e levothyroxi Yes 75ug Take 75 [place] ne 1-20 mcg by [facility] (SYNTHROID) 15:43: mouth of 75 MCG 45 daily. Medicin tablet e mirtazapine Yes 30mg Take 2 [facility] (REMERON) 1-20 Tablets by [facility] 15 MG 00:00: mouth of tablet 00 nightly. Medicin e rivastigmin Yes 1{patch Apply 1 [facility] e (EXELON) 1-20 } Patch Goss 4.6 MG/24HR 00:00: topically o f PT24 00 every 24 Medicin hours. e mirtazapine Yes 30mg Take 2 [facility] (REMERON) 1-20 Tablets by [facility] 15 MG 00:00: mouth of tablet 00 nightly. Medicin e mirtazapine Yes 30mg Take 2 [facility] (REMERON) 1-20 Tablets by [facility] 15 MG 00:00: mouth of tablet 00 nightly. Medicin e mirtazapine Yes 30mg Take 2 [facility] (REMERON) 1-20 Tablets by [facility] 15 MG 00:00: mouth of tablet 00 nightly. Medicin e mirtazapine 2020- No 30mg Take 2 [facility] (REMERON) 1-20 12-29 Tablets by Col lege 15 MG 00:00: 00:00 mouth of tablet 00 :00 nightly. Medicin e polyethylen 2019-08- No 17g QD Take [address] [facility] e glycol 2-14 12-28 by [facility] (GLYCOLAX) 00:00: 23:59 daily for M edical 17 gram 00 :00 14 days. Center packet docusate 2019-08- No 250mg QD Take 1 [facility] sodium [facility]-14 12-24 capsule [facility] (COLACE) 00:00: 23:59 (250 mg Medic al 250 MG 00 :00 total) by Center capsule mouth daily for 10 days. acetaminoph 2019-08- No 1{tbl} Take [address] en-codeine 2-14 12-24 tablet by Reji coyne (TYLENOL 00:00: 23:59 mouth Medical #3) 300-30 00 :00 every 4 Center mg per (four) tablet hours as needed for up to 10 days. Max Daily Amount: 6 tablets amoxicillin 2019-08- No 1{tbl} Q.5D Take [address] -clavulanat 2-14 12-18 tablet by Kalina [facility]una 00:00: 23:59 mouth 2 Medical (AUGMENTIN) 00 :00 (two) Center 875-125 mg times per tablet daily for 4 days. Rasagiline 2019-08 Yes 1{tbl} Take 1 [facility] Mesylate 1 2-09 Tablet by [facility] MG TABS 00:00: mouth of 00 daily. Medicin e Rasagiline 2019-08 Yes 1{tbl} Take 1 [facility] Mesylate 1 2-09 Tablet by [facility] MG TABS 00:00: mouth of 00 daily. Medicin e Rasagiline 2019-08 Yes 1{tbl} Take 1 [facility] [facility] Mesylate 1 2-09 Tablet by [facility] MG TABS 00:00: mouth of 00 daily. Medicin e Rasagiline 2019-08 Yes 1{tbl} Take 1 [facility] [facility] Mesylate 1 2-09 Tablet by [facility] MG TABS 00:00: mouth of 00 daily. Medicin e Rasagiline 2019-08 Yes 1{tbl} Take 1 [facility] Mesylate 1 2-09 Tablet by [facility] MG TABS 00:00: mouth of 00 daily. Medicin e clonidine 2019-08 Yes [facility] (CATAPRES) 2 [facility] 0.1 MG 00:00: of tablet 00 Medicin e clonidine 2019-08 Yes [facility] (CATAPRES) 2 [facility] 0.1 MG 00:00: of tablet 00 Medicin e clonidine 2019-08- No [facility] (CATAPRES) 2 04-06 College 0.1 MG 00:00: 00:00 of tablet 00 :00 Medicin e carbidopa-l 2019-08 Yes TAKE 10 [facility] [facility] evodopa 1-20 TABLETS BY Princess [facility]una (SINEMET) 00:00: MOUTH of 25-100 MG 00 DAILY. Medicin per tablet TAKE 2 e TABLETS WITH FIRST DOSE, THEN 1 TABLET EVERY 2 HOURS WHILE AWAKE carbidopa-l 2020-1 Yes TAKE 10 [facility] evodopa 1-20 TABLETS BY Colleg e (SINEMET) 00:00: MOUTH of 25-100 MG 00 DAILY. Medicin per tablet TAKE 2 e TABLETS WITH FIRST DOSE, THEN 1 TABLET EVERY 2 HOURS WHILE AWAKE carbidopa-l 2020-1 Yes TAKE 10 [place] [facility] evodopa 1-20 TABLETS BY Colleg e (SINEMET) 00:00: MOUTH of 25-100 MG 00 DAILY. Medicin per tablet TAKE 2 e TABLETS WITH FIRST DOSE, THEN 1 TABLET EVERY 2 HOURS WHILE AWAKE carbidopa-l 2020-1 Yes TAKE 10 [place] evodopa 1-20 TABLETS BY Colleg e (SINEMET) 00:00: MOUTH of 25-100 MG 00 DAILY. Medicin per tablet TAKE 2 e TABLETS WITH FIRST DOSE, THEN 1 TABLET EVERY 2 HOURS WHILE AWAKE carbidopa-l 2020-1 Yes TAKE 10 [facility] evodopa 1-20 TABLETS BY [facility] e (SINEMET) 00:00: MOUTH of 25-100 MG 00 DAILY. Medicin per tablet TAKE 2 e TABLETS WITH FIRST DOSE, THEN 1 TABLET EVERY 2 HOURS WHILE AWAKE carbidopa-l 2020-1 Yes TAKE 10 [place] evodopa 1-20 TABLETS BY [facility] e (SINEMET) 00:00: MOUTH of 25-100 MG 00 DAILY. Medicin per tablet TAKE 2 e TABLETS WITH FIRST DOSE, THEN 1 TABLET EVERY 2 HOURS WHILE AWAKE carbidopa-l 2020-1 Yes TAKE 10 [place] evodopa 1-20 TABLETS BY [facility] e (SINEMET) 00:00: MOUTH of 25-100 MG 00 DAILY. Medicin per tablet TAKE 2 e TABLETS WITH FIRST DOSE, THEN 1 TABLET EVERY 2 HOURS WHILE AWAKE carbidopa-l 2020-1 Yes TAKE 10 [place] evodopa 1-20 TABLETS BY [facility] e (SINEMET) 00:00: MOUTH of 25-100 MG 00 DAILY. Medicin per tablet TAKE 2 e TABLETS WITH FIRST DOSE, THEN 1 TABLET EVERY 2 HOURS WHILE AWAKE carbidopa-l 2020-1 Yes TAKE 10 [facility] [facility] evodopa 1-20 TABLETS BY [facility] e (SINEMET) 00:00: MOUTH of 25-100 MG 00 DAILY. Medicin per tablet TAKE 2 e TABLETS WITH FIRST DOSE, THEN 1 TABLET EVERY 2 HOURS WHILE AWAKE carbidopa-l 2019-08 Yes TAKE 10 [place] [facility] evodopa 1-20 TABLETS BY [facility] e (SINEMET) 00:00: MOUTH of 25-100 MG 00 DAILY. Medicin per tablet TAKE 2 e TABLETS WITH FIRST DOSE, THEN 1 TABLET EVERY 2 HOURS WHILE AWAKE carbidopa-l 2019-08 Yes TAKE 10 [place] evodopa 1-20 TABLETS BY [facility] e (SINEMET) 00:00: MOUTH of 25-100 MG 00 DAILY. Medicin per tablet TAKE 2 e TABLETS WITH FIRST DOSE, THEN 1 TABLET EVERY 2 HOURS WHILE AWAKE carbidopa-l 2019-08 Yes TAKE 10 [place] evodopa 1-20 TABLETS BY [facility] e (SINEMET) 00:00: MOUTH of 25-100 MG 00 DAILY. Medicin per tablet TAKE 2 e TABLETS WITH FIRST DOSE, THEN 1 TABLET EVERY 2 HOURS WHILE AWAKE carbidopa-l 2019-08 Yes TAKE 10 [place] evodopa 1-20 TABLETS BY [facility] e (SINEMET) 00:00: MOUTH of 25-100 MG 00 DAILY. Medicin per tablet TAKE 2 e TABLETS WITH FIRST DOSE, THEN 1 TABLET EVERY 2 HOURS WHILE AWAKE Loratadine 2019-08 Yes 10mg Take 10 mg [facility] (CLARITIN) 1-13 by mouth Colle ge 10 MG CAPS 19:00: daily as of 32 needed. Medicin e Triamcinolo 2019-08 Yes by [facility]al [facility] 1-13 route [facility] Acetonide 19:00: daily as of (NASACORT 32 needed. Medicin AQ NA) e levothyroxi 2019-08 Yes 75ug Take 75 [place] ne 1-13 mcg by [facility] (SYNTHROID) 19:00: mouth of 75 MCG 32 daily. Medicin tablet e Loratadine 2019-08 Yes 10mg Take 10 mg [facility] (CLARITIN) 1-13 by mouth Colle ge 10 MG CAPS 19:00: daily as of 32 needed. Medicin e Triamcinolo 2019-08 Yes by [facility]al [facility] 1-13 route [facility] Acetonide 19:00: daily as of (NASACORT 32 needed. Medicin AQ NA) e levothyroxi 2019-08 Yes 75ug Take 75 [place] ne 1-13 mcg by [facility] (SYNTHROID) 19:00: mouth of 75 MCG 32 daily. Medicin tablet e ciprofloxac 2020-1 Yes [id number] 500mg Take 1 [facility] in (CIPRO) 1-11 Tablet by Rebecca ege 500 MG 00:00: mouth two of tablet 00 times Medicin daily. e ciprofloxac 2019-08 Yes [id number] 500mg Take 1 [facility] in (CIPRO) 1-11 Tablet by [facility] ege 500 MG 00:00: mouth two of tablet 00 times Medicin daily. e Loratadine 2019-08 Yes 10mg Take 10 mg [facility] (CLARITIN) 0-22 by mouth Colle ge 10 MG CAPS 16:32: daily as of 31 needed. Medicin e Triamcinolo 2019-08 Yes by Nasal [facility] 0-22 route [facility] Acetonide 16:32: daily as of (NASACORT 31 needed. Medicin AQ NA) e levothyroxi 2019-08 Yes 75ug Take 75 [place] ne 0-22 mcg by [facility] (SYNTHROID) 16:32: mouth of 75 MCG 31 daily. Medicin tablet e Loratadine 2019-08 Yes 10mg Take 10 mg [facility] (CLARITIN) 0-22 by mouth Colle ge 10 MG CAPS 16:32: daily as of 31 needed. Medicin e Triamcinolo 2019-08 Yes by Nasal [facility] 0-22 route [facility] Acetonide 16:32: daily as of (NASACORT 31 needed. Medicin AQ NA) e levothyroxi 2019-08 Yes 75ug Take 75 [place] ne 0-22 mcg by [facility] (SYNTHROID) 16:32: mouth of 75 MCG 31 daily. Medicin tablet e mirtazapine 2019-08 Yes 15mg Take 1 Tab [facility] (REMERON) 0-22 by mouth Colleg e 15 MG 00:00: nightly. of tablet 00 Medicin e mirtazapine 2019-08 Yes 15mg Take 1 Tab [facility] (REMERON) 0-22 by mouth Colleg e 15 MG 00:00: nightly. of tablet 00 Medicin e Rotigotine 2019-08 Yes 1 patch [facility] (NEUPRO) 4 0-21 daily to Colle ge MG/24HR 00:00: skin of PT24 00 Medicin e Rotigotine 2019- Yes 1 patch [facility] (NEUPRO) 4 0-21 daily to Colle ge MG/24HR 00:00: skin of PT24 00 Medicin e Rotigotine 2019-08 Yes 1 patch [facility] (NEUPRO) 4 0-21 daily to Colle ge MG/24HR 00:00: skin of PT24 00 Medicin e Rotigotine 2019- Yes 1 patch [facility] (NEUPRO) 4 0-21 daily to Colle ge MG/24HR 00:00: skin of PT24 00 Medicin e Rotigotine 2020- Yes 1 patch [facility] (NEUPRO) 4 0-21 daily to Colle ge MG/24HR 00:00: skin of PT24 00 Medicin e Rotigotine 2019- Yes 1 patch [facility] (NEUPRO) 4 0-21 daily to Colle ge MG/24HR 00:00: skin of PT24 00 Medicin e Tamsulosin 2019-08 Yes [id number] .8mg Take 0.8 [facility] HCl 0.4 MG 0-01 mg by College CAPS 00:00: mouth at of 00 bedtime. Medicin e Mirabegron 2019-08 Yes [id number] 25mg Take 25 mg [facility] ER 0-01 by mouth College (MYRBETRIQ) 00:00: daily. of 25 MG TB24 00 Patient to Med icin discontinu e e 50 mg Tamsulosin 2019-08 Yes [id number] .8mg Take 0.8 [facility] HCl 0.4 MG 0-01 mg by [facility] CAPS 00:00: mouth at of 00 bedtime. Medicin e Mirabegron 2019-08 Yes [id number] 25mg Take 25 mg [facility] ER 0-01 by mouth College (MYRBETRIQ) 00:00: daily. of 25 MG TB24 00 Patient to Med icin discontinu e e 50 mg Tamsulosin 2019-08 Yes [id number] .8mg Take 0.8 [facility] HCl 0.4 MG 0-01 mg by [facility] CAPS 00:00: mouth at of 00 bedtime. Medicin e Mirabegron 2019- Yes [id number] 25mg Take 25 mg [facility] ER 0-01 by mouth [facility] (MYRBETRIQ) 00:00: daily. of 25 MG TB24 00 Patient to Med icin discontinu e e 50 mg Tamsulosin 2019-08 Yes [id number] .8mg Take 0.8 [facility] HCl 0.4 MG 0-01 mg by College CAPS 00:00: mouth at of 00 bedtime. Medicin e Mirabegron 2020-1 Yes [id number] 25mg Take 25 mg [facility] ER 0-01 by mouth College (MYRBETRIQ) 00:00: daily. of 25 MG TB24 00 Patient to Med icin discontinu e e 50 mg Mirabegron 2020-1 Yes [id number] 25mg Take 25 mg [facility] ER 0-01 by mouth College (MYRBETRIQ) 00:00: daily. of 25 MG TB24 00 Patient to Med icin discontinu e e 50 mg Mirabegron 2020-1 Yes [id number] 25mg Take 25 mg [facility] ER 0-01 by mouth College (MYRBETRIQ) 00:00: daily. of 25 MG TB24 00 Patient to Med icin discontinu e e 50 mg Mirabegron 2020-1 2020- No [id number] 25mg Take 25 mg [facility] ER 0-01 04-06 by mouth [facility] (MYRBETRIQ) 00:00: 00:00 daily. of 25 MG TB24 00 :00 Patient to Med icin discontinu e e 50 mg Mirabegron 2020-0 Yes [id number] 50mg Take 50 mg [facility] ER 9-25 by mouth College (MYRBETRIQ) 00:00: daily. of 50 MG TB24 00 Medicin e levofloxaci 2020-0 Yes [id number] 500mg Take 1 Tab [facility] n 9-21 by mouth College (LEVAQUIN) 00:00: daily. of 500 MG 00 Medicin tablet e levofloxaci 2020-0 Yes [id number] 500mg Take 1 Tab [facility] n 9-21 by mouth College (LEVAQUIN) 00:00: daily. of 500 MG 00 Medicin tablet e levofloxaci 2020-0 Yes [id number] 500mg Take 1 Tab [facility] n 9-21 by mouth College (LEVAQUIN) 00:00: daily. of 500 MG 00 Medicin tablet e Loratadine 2020-0 Yes 10mg Take 10 mg [facility] (CLARITIN) 9-16 by mouth Colle ge 10 MG CAPS 15:19: daily as of 44 needed. Medicin e Triamcinolo 2020-0 Yes by Nasal [facility] 9-16 route [facility] Acetonide 15:19: daily as of (NASACORT 44 needed. Medicin AQ NA) e levothyroxi 2020-0 Yes 75ug Take 75 [place] [facility] ne 9-16 mcg by [facility] (SYNTHROID) 15:19: mouth of 75 MCG 44 daily. Medicin tablet e levofloxaci 2020-0 Yes [id number] 500mg Take 1 Tab [facility] n 9-15 by mouth College (LEVAQUIN) 00:00: daily. of 500 MG 00 Medicin tablet e levofloxaci 2020-0 Yes [id number] 500mg Take 1 Tab [facility] n 9-15 by mouth College (LEVAQUIN) 00:00: daily. of 500 MG 00 Medicin tablet e levofloxaci 2020-0 Yes [id number] 500mg Take 1 Tab [facility] n 9-15 by mouth College (LEVAQUIN) 00:00: daily. of 500 MG 00 Medicin tablet e estradiol 2020-[id number] 1 g [facility] (ESTRACE 8-26 vaginally Colleg e VAGINAL) 00:00: 3 times of 0.1 MG/GM 00 weekly. Medicin vaginal e cream estradiol 2020-[id number] 1 g [facility] (ESTRACE 8-26 vaginally [facility] e VAGINAL) 00:00: 3 times of 0.1 MG/GM 00 weekly. Medicin vaginal e cream estradiol 2020-[id number] 1 g [facility] (ESTRACE 8-26 vaginally Colleg e VAGINAL) 00:00: 3 times of 0.1 MG/GM 00 weekly. Medicin vaginal e cream estradiol 2020-[id number] 1 g [facility] (ESTRACE 8-26 vaginally Colleg e VAGINAL) 00:00: 3 times of 0.1 MG/GM 00 weekly. Medicin vaginal e cream estradiol 2020-[id number] 1 g [facility] (ESTRACE 8-26 vaginally Colleg e VAGINAL) 00:00: 3 times of 0.1 MG/GM 00 weekly. Medicin vaginal e cream estradiol 2020-[id number] 1 g [facility] (ESTRACE 8-26 vaginally Colleg e VAGINAL) 00:00: 3 times of 0.1 MG/GM 00 weekly. Medicin vaginal e cream estradiol 2020-[id number] 1 g [facility] (ESTRACE 8-26 vaginally [facility] VAGINAL) 00:00: 3 times of 0.1 MG/GM 00 weekly. Medicin vaginal e cream estradiol 2020-[id number] 1 g [facility] (ESTRACE 8-26 vaginally Colleg e VAGINAL) 00:00: 3 times of 0.1 MG/GM 00 weekly. Medicin vaginal e cream estradiol 2020-[id number] 1 g [facility] (ESTRACE 8-26 vaginally Colleg e VAGINAL) 00:00: 3 times of 0.1 MG/GM 00 weekly. Medicin vaginal e cream estradiol 2020-[id number] 1 g [facility] (ESTRACE 8-26 vaginally Colleg e VAGINAL) 00:00: 3 times of 0.1 MG/GM 00 weekly. Medicin vaginal e cream estradiol 2020-[id number] 1 g [facility] (ESTRACE 8-26 vaginally Colleg e VAGINAL) 00:00: 3 times of 0.1 MG/GM 00 weekly. Medicin vaginal e cream estradiol 2020-[id number] 1 g [facility] (ESTRACE 8-26 vaginally Colleg e VAGINAL) 00:00: 3 times of 0.1 MG/GM 00 weekly. Medicin vaginal e cream estradiol 2020-[id number] 1 g [facility] (ESTRACE 8-26 vaginally Colleg e VAGINAL) 00:00: 3 times of 0.1 MG/GM 00 weekly. Medicin vaginal e cream estradiol 2020-[id number] 1 g [facility] (ESTRACE 8-26 vaginally Colleg e VAGINAL) 00:00: 3 times of 0.1 MG/GM 00 weekly. Medicin vaginal e cream estradiol 2020-[id number] 1 g [facility] (ESTRACE 8-26 vaginally Colleg e VAGINAL) 00:00: 3 times of 0.1 MG/GM 00 weekly. Medicin vaginal e cream estradiol 2020-[id number] 1 g [facility] (ESTRACE 8-26 vaginally [facility] VAGINAL) 00:00: 3 times of 0.1 MG/GM 00 weekly. Medicin vaginal e cream Loratadine 2020-0 Yes 10mg Take 10 mg [facility] (CLARITIN) 8-19 by mouth Colle ge 10 MG CAPS 20:58: daily as of 49 needed. Medicin e Triamcinolo 2020-0 Yes by Nasal [facility] 8-19 route [facility] Acetonide 20:58: daily as of (NASACORT 49 needed. Medicin AQ NA) e levothyroxi 2020-0 Yes 75ug Take 75 [place] ne 8-19 mcg by [facility] (SYNTHROID) 20:58: mouth of 75 MCG 49 daily. Medicin tablet e Loratadine 2020-0 Yes 10mg Take 10 mg [facility] (CLARITIN) 7-22 by mouth Colle ge 10 MG CAPS 16:19: daily as of 37 needed. Medicin e Triamcinolo 2020-0 Yes by [facility] 7-22 route [facility] Acetonide 16:19: daily as of (NASACORT 37 needed. Medicin AQ NA) e levothyroxi 2020-0 Yes 75ug Take 75 [place] ne 7-22 mcg by [facility] (SYNTHROID) 16:19: mouth of 75 MCG 37 daily. Medicin tablet e ciclopirox 2020-0 Yes [facility] EXT [facility] (PENLAC) 8 7-13 D College % solution 00:00: of 00 Medicin e ciclopirox 2020-0 Yes [facility] D College % solution 00:00: of 00 Medicin e ciclopirox 2020-0 Yes [facility] EXT [facility] (PENLA) 8 7-13 D College % solution 00:00: of 00 Medicin e ciclopirox 2020-0 Yes [facility] EX[facility] 8 7-13 D College % solution 00:00: of 00 Medicin e ciclopirox 2020-0 Yes [facility] EXT [facility] (PENLA) 8 7-13 D College % solution 00:00: of 00 Medicin e ciclopirox 2020-0 Yes [facility] EXT [facility] (PENLA) 8 7-13 D College % solution 00:00: of 00 Medicin e ciclopirox 2020-0 Yes [facility] EXT AA [facility] (PENLA) 8 7-13 D College % solution 00:00: of 00 Medicin e ciclopirox 2020-0 Yes 8% Apply 8 [facility] (PENLAC) 8 7-13 Percent Colleg e % solution 00:00: topically. o f 00 Medicin e ciclopirox 2020-0 Yes 8% Apply 8 [facility] (PENLAC) 8 7-13 Percent [facility] e % solution 00:00: topically. o f 00 Medicin e ciclopirox 2020-0 Yes 8% Apply 8 [facility] (PENLAC) 8 7-13 Percent [facility] e % solution 00:00: topically. o f 00 Medicin e ciclopirox 2020-0 Yes 8% Apply 8 [facility] (PENLAC) 8 7-13 Percent [facility] e % solution 00:00: topically. o f 00 Medicin e ciclopirox 2020-0 Yes 8% Apply 8 [facility] (PENLAC) 8 7-13 Percent [facility] e % solution 00:00: topically. o f 00 Medicin e ciclopirox 2020-0 Yes 8% Apply 8 [facility] (PENLAC) 8 7-13 Percent [facility] e % solution 00:00: topically. o f 00 Medicin e ciclopirox 2020-0 Yes 8% Apply 8 [facility] (PENLAC) 8 7-13 Percent [facility] e % solution 00:00: topically. o f 00 Medicin e ciclopirox 2020-0 Yes 8% Apply 8 [facility] (PENLAC) 8 7-13 Percent [facility] e % solution 00:00: topically. o f 00 Medicin e ciclopirox 2020-0 Yes 8% Apply 8 [facility] (PENLAC) 8 7-13 Percent [facility] e % solution 00:00: topically. o f 00 Medicin e ciprofloxac 2020-0 Yes [id number] 500mg Take 1 Tab [facility] in (CIPRO) 7-09 by mouth Colle ge 500 MG 00:00: two times of tablet 00 daily. Medicin e sulfamethox 2020-0 Yes [id number] 1{tbl} Take 1 Tab [facility] azole-trime 5-22 by mouth Rebecca ege thoprim 00:00: two times of (BACTRIM 00 daily. Medicin DS) 800-160 e MG per tablet Loratadine 2020-0 Yes 10mg Take 10 mg [facility] (CLARITIN) 5-20 by mouth Colle ge 10 MG CAPS 19:33: daily as of 33 needed. Medicin e Triamcinolo 2020-0 Yes by Nasal [facility] 5-20 route [facility] Acetonide 19:33: daily as of (NASACORT 33 needed. Medicin AQ NA) e levothyroxi 2020-0 Yes 75ug Take 75 [facility] [facility] ne 5-20 mcg by [facility] (SYNTHROID) 19:33: mouth of 75 MCG 33 daily. Medicin tablet e amoxicillin 2020-0 Yes [id number] 1{tbl} Take 1 Tab [facility] -clavulanat 5-20 by mouth [facility] ege e 00:00: two times of (AUGMENTIN) 00 daily. Medici n 875-125 MG e per tablet meloxicam 2020-0 Yes [id number] TAKE 1 [facility] (MOBIC) 7.5 4-29 TABLET BY Col lege MG tablet 00:00: MOUTH of 00 EVERY DAY Medicin e meloxicam 2020-0 Yes [id number] TAKE 1 [facility] (MOBIC) 7.5 4-29 TABLET BY Col lege MG tablet 00:00: MOUTH of 00 EVERY DAY Medicin e meloxicam 2020-0 Yes [id number] TAKE 1 [facility] (MOBIC) 7.5 4-29 TABLET BY Col lege MG tablet 00:00: MOUTH of 00 EVERY DAY Medicin e meloxicam 2020-0 Yes [id number] TAKE 1 [facility] (MOBIC) 7.5 4-29 TABLET BY Col lege MG tablet 00:00: MOUTH of 00 EVERY DAY Medicin e meloxicam 2020-0 Yes [id number] TAKE 1 [facility] (MOBIC) 7.5 4-29 TABLET BY Col lege MG tablet 00:00: MOUTH of 00 EVERY DAY Medicin e meloxicam 2020-0 Yes [id number] TAKE 1 [facility] (MOBIC) 7.5 4-29 TABLET BY Col lege MG tablet 00:00: MOUTH of 00 EVERY DAY Medicin e meloxicam 2020-0 Yes [id number] TAKE 1 [facility] (MOBIC) 7.5 4-29 TABLET BY Col lege MG tablet 00:00: MOUTH of 00 EVERY DAY Medicin e meloxicam 2020-0 Yes [id number] TAKE 1 [facility] (MOBIC) 7.5 4-29 TABLET BY Col lege MG tablet 00:00: MOUTH of 00 EVERY DAY Medicin e meloxicam 2020-0 Yes [id number] TAKE 1 [facility] (MOBIC) 7.5 4-29 TABLET BY Col lege MG tablet 00:00: MOUTH of 00 EVERY DAY Medicin e meloxicam 2020-0 Yes [id number] TAKE 1 [facility] (MOBIC) 7.5 4-29 TABLET BY Col lege MG tablet 00:00: MOUTH of 00 EVERY DAY Medicin e meloxicam 2020-0 Yes [id number] TAKE 1 [facility] (MOBIC) 7.5 4-29 TABLET BY Col lege MG tablet 00:00: MOUTH of 00 EVERY DAY Medicin e amoxicillin 2020-0 2020- No [id number] 1{tbl} Take 1 Tab [facility] -clavulanat 4-03 04-22 by mouth Col lege e 00:00: 00:00 two times of (AUGMENTIN) 00 :00 daily. Medici n 875-125 MG e per tablet Tamsulosin 2020-0 Yes [id number] .4mg Take 0.4 [facility] HCl 0.4 MG 3-24 mg by College CAPS 00:00: mouth at of 00 bedtime. Medicin e Tamsulosin 2020-0 Yes [id number] .4mg Take 0.4 [facility] HCl 0.4 MG 3-24 mg by College CAPS 00:00: mouth at of 00 bedtime. Medicin e Tamsulosin 2020-0 Yes [id number] .4mg Take 0.4 [facility] HCl 0.4 MG 3-24 mg by College CAPS 00:00: mouth at of 00 bedtime. Medicin e Tamsulosin 2020-0 Yes [id number] .4mg Take 0.4 [facility] HCl 0.4 MG 3-24 mg by College CAPS 00:00: mouth at of 00 bedtime. Medicin e Tamsulosin 2020-0 Yes [id number] .4mg Take 0.4 [facility] HCl 0.4 MG 3-24 mg by College CAPS 00:00: mouth at of 00 bedtime. Medicin e Tamsulosin 2020-0 Yes [id number] .4mg Take 0.4 [facility] HCl 0.4 MG 3-24 mg by College CAPS 00:00: mouth at of 00 bedtime. Medicin e Tamsulosin 2020-0 Yes [id number] .4mg Take 0.4 [facility] HCl 0.4 MG 3-24 mg by College CAPS 00:00: mouth at of 00 bedtime. Medicin e Tamsulosin 2020-0 Yes [id number] .4mg Take 0.4 [facility] HCl 0.4 MG 3-24 mg by College CAPS 00:00: mouth at of 00 bedtime. Medicin e [place] [id number] Yes INHALE THE [facility] MG CAPS 3-13 CONTENTS Goss 00:00: OF 2 of 00 CAPSULES Medicin NEEDED, e FOR SYMPTOMS OF AN OFF PERIOD. NOT TO EXCEED 5 DOSES A DAY. [place] [id number] Yes INHALE THE [facility] MG CAPS 3-13 CONTENTS Goss 00:00: OF 2 of 00 CAPSULES Medicin NEEDED, e FOR SYMPTOMS OF AN OFF PERIOD. NOT TO EXCEED 5 DOSES A DAY. [place] [id number] Yes INHALE THE [facility] MG CAPS 3-13 CONTENTS Goss 00:00: OF 2 of 00 CAPSULES Medicin NEEDED, e FOR SYMPTOMS OF AN OFF PERIOD. NOT TO EXCEED 5 DOSES A DAY. [place] [id number] Yes INHALE THE [facility] [employer] CAPS 3-13 CONTENTS Goss 00:00: OF 2 of 00 CAPSULES Medicin NEEDED, e FOR SYMPTOMS OF AN OFF PERIOD. NOT TO EXCEED 5 DOSES A DAY. [place] [id number] Yes INHALE THE [facility] CAPS 3-13 CONTENTS Goss 00:00: OF 2 of 00 CAPSULES Medicin NEEDED, e FOR SYMPTOMS OF AN OFF PERIOD. NOT TO EXCEED 5 DOSES A DAY. [place] [id number] Yes INHALE THE [facility] [employer] CAPS 3-13 CONTENTS Goss 00:00: OF 2 of 00 CAPSULES Medicin NEEDED, e FOR SYMPTOMS OF AN OFF PERIOD. NOT TO EXCEED 5 DOSES A DAY. [place] [id number] Yes INHALE THE [facility] CAPS 3-13 CONTENTS Goss 00:00: OF 2 of 00 CAPSULES Medicin NEEDED, e FOR SYMPTOMS OF AN OFF PERIOD. NOT TO EXCEED 5 DOSES A DAY. [place] [id number] Yes INHALE THE [facility] [employer] CAPS 3-13 CONTENTS Goss 00:00: OF 2 of 00 CAPSULES Medicin NEEDED, e FOR SYMPTOMS OF AN OFF PERIOD. NOT TO EXCEED 5 DOSES A DAY. sulfamethox 2020- No [id number] 1{tbl} Take 1 Tab [facility] azole-trime 3-04 -22 by mouth [facility] thoprim 00:00: 00:00 two times of (BACTRIM 00 :00 daily. Medicin DS) 800-160 e MG per tablet Loratadine 2020-0 Yes 10mg Take 10 mg [facility] (CLARITIN) 2-19 by mouth [facility] 10 MG CAPS 23:43: daily as of 37 needed. Medicin e Triamcinolo 2020-0 Yes by Nasal [facility] ne 2-19 route [facility] Acetonide 23:43: daily as of (NASACORT 37 needed. Medicin AQ NA) e levothyroxi 2020-0 Yes 75ug Take 75 [place] ne 2-19 mcg by [facility] (SYNTHROID) 23:43: mouth of 75 MCG 37 daily. Medicin tablet e Loratadine 2020-0 Yes 10mg Take 10 mg [facility] (CLARITIN) 2-19 by mouth [facility] 10 MG CAPS 23:43: daily as of 37 needed. Medicin e Triamcinolo 2020-0 Yes by Nasal [facility] ne 2-19 route [facility] Acetonide 23:43: daily as of (NASACORT 37 needed. Medicin AQ NA) e levothyroxi 2020-0 Yes 75ug Take 75 [place] ne 2-19 mcg by [facility] (SYNTHROID) 23:43: mouth of 75 MCG 37 daily. Medicin tablet e Loratadine 2020-0 Yes 10mg Take 10 mg [facility] (CLARITIN) 2-05 by mouth [facility] 10 MG CAPS 16:33: daily as of 20 needed. Medicin e Triamcinolo 2020-0 Yes by Nasal [facility] ne 2-05 route [facility] Acetonide 16:33: daily as of (NASACORT 20 needed. Medicin AQ NA) e levothyroxi 2020-0 Yes 75ug Take 75 [place] ne 2-05 mcg by [facility] (SYNTHROID) 16:33: mouth of 75 MCG 20 daily. Medicin tablet e Loratadine 2020-0 Yes 10mg Take 10 mg [facility] (CLARITIN) 2-05 by mouth [facility] 10 MG CAPS 16:33: daily as of 20 needed. Medicin e Triamcinolo 2020-0 Yes by Nasal [facility] ne 2-05 route [facility] Acetonide 16:33: daily as of (NASACORT 20 needed. Medicin AQ NA) e levothyroxi 2020-0 Yes 75ug Take 75 [place] ne 2-05 mcg by [facility] (SYNTHROID) 16:33: mouth of 75 MCG 20 daily. Medicin tablet e CIPROFLOX 2020-0 Yes 500mg Take 500 [place] [facility] HCL-CIPRO 2-05 mg by [facility] BETAINE 00:00: mouth of (CIPRO XR) 00 daily. Medicin 500 MG TB24 e CIPROFLOX 2020-0 Yes 500mg Take 500 [place] [facility] HCL-CIPRO 2-05 mg by [facility] BETAINE 00:00: mouth of (CIPRO XR) 00 daily. Medicin 500 MG TB24 e sulfamethox 2020-0 Yes [id number] 1{tbl} Take 1 Tab [facility] azole-trime 2-05 by mouth [facility] thoprim 00:00: two times of (BACTRIM 00 daily. Medicin DS) 800-160 e MG per tablet CIPROFLOX 2020-0 2020- No 500mg Take 500 [facility] HCL-CIPRO 2-05 02-19 mg by [facility] BETAINE 00:00: 00:00 mouth of (CIPRO XR) 00 :00 daily. Medicin 500 MG TB24 e sulfamethox 2020-0 2020- No [id number] 1{tbl} Take 1 Tab [facility] azole-trime 2-05 02-19 by mouth [facility] thoprim 00:00: 00:00 two times of (BACTRIM 00 :00 daily. Medicin DS) 800-160 e MG per tablet Loratadine 2020-0 Yes 10mg Take 10 mg [facility] (CLARITIN) 1-27 by mouth [facility] 10 MG CAPS 19:33: daily as of 05 needed. Medicin e Triamcinolo 2020-0 Yes by Nasal [facility] ne 1-27 route [facility] Acetonide 19:33: daily as of (NASACORT 05 needed. Medicin AQ NA) e levothyroxi 2020-0 Yes 75ug Take 75 [place] ne 1-27 mcg by [facility] (SYNTHROID) 19:33: mouth of 75 MCG 05 daily. Medicin tablet e Loratadine 2020-0 Yes 10mg Take 10 mg [facility] (CLARITIN) 1-23 by mouth [facility]le [facility] 10 MG CAPS 15:52: daily as of 59 needed. Medicin e Triamcinolo 2020-0 Yes by Nasal [facility] ne 1-23 route [facility] Acetonide 15:52: daily as of (NASACORT 59 needed. Medicin AQ NA) e levothyroxi 2020-0 Yes 75ug Take 75 [place] ne 1-23 mcg by [facility] (SYNTHROID) 15:52: mouth of 75 MCG 59 daily. Medicin tablet e Loratadine 2020-0 Yes 10mg Take 10 mg [facility] (CLARITIN) 1-22 by mouth [facility] 10 MG CAPS 14:44: daily as of 51 needed. Medicin e Triamcinolo 2020-0 Yes by Nasal [facility] ne 1-22 route [facility] Acetonide 14:44: daily as of (NASACORT 51 needed. Medicin AQ NA) e levothyroxi 2020-0 Yes 75ug Take 75 [place] ne 1-22 mcg by [facility] (SYNTHROID) 14:44: mouth of 75 MCG 51 daily. Medicin tablet e Rotigotine 2020-0 Yes APPLY 1 [facility] 6 MG/24HR 1-07 PATCH [facility] PT 00:00: EXTERNALLY of 00 TO THE Medicin SKIN EVERY e 24 HOURS Rotigotine 2020-0 Yes APPLY 1 [facility] 6 MG/24HR 1-07 PATCH [place] [id number] 00:00: EXTERNALLY of 00 TO THE Medicin SKIN EVERY e 24 HOURS Rotigotine 2020-0 Yes APPLY 1 [facility] 6 MG/24HR 1-07 PATCH [facility] PT 00:00: EXTERNALLY of 00 TO THE Medicin SKIN EVERY e 24 HOURS Rotigotine 2020-0 Yes APPLY 1 [facility] 6 MG/24HR 1-07 PATCH [place] [address] 00:00: EXTERNALLY of 00 TO THE Medicin SKIN EVERY e 24 HOURS Rotigotine 2020-0 Yes APPLY 1 [facility] 6 MG/24HR 1-07 PATCH [place] [address] 00:00: EXTERNALLY of 00 TO THE Medicin SKIN EVERY e 24 HOURS Rotigotine 2020-0 Yes APPLY 1 [facility] 6 MG/24HR 1-07 PATCH [facility] PT 00:00: EXTERNALLY of 00 TO THE Medicin SKIN EVERY e 24 HOURS Rotigotine 2020-0 Yes APPLY 1 [facility] 6 MG/24HR 1-07 PATCH [place] [address] 00:00: EXTERNALLY of 00 TO THE Medicin SKIN EVERY e 24 HOURS Rotigotine 2020-0 Yes APPLY 1 [facility] 6 MG/24HR 1-07 PATCH [place] [address] 00:00: EXTERNALLY of 00 TO THE Medicin SKIN EVERY e 24 HOURS Rotigotine 2020-0 Yes APPLY 1 [facility] 6 MG/24HR 1-07 PATCH [facility] PT24 00:00: EXTERNALLY of 00 TO THE Medicin SKIN EVERY e 24 HOURS Rotigotine 2020-0 Yes APPLY 1 [facility] 6 MG/24HR 08-08 PATCH [facility] PT24 00:00: EXTERNALLY of 00 TO THE Medicin SKIN EVERY e 24 HOURS Rotigotine 2020-0 Yes APPLY 1 [facility] 6 MG/24HR 08-08 PATCH [facility] PT24 00:00: EXTERNALLY of 00 TO THE Medicin SKIN EVERY e 24 HOURS Rotigotine 2020-0 2020- No APPLY 1 [facility] [facility] 6 MG/24HR 08-08 PATCH [facility] PT24 00:00: 00:00 EXTERNALLY of 00 :00 TO THE Medicin SKIN EVERY e 24 HOURS ESTRACE 2018-[id number] 1 [facility] VAGINAL 0.1 2-13 GRAM [facility] MG/GM 00:00: VAGINALLY of vaginal 00 3 TIMES Medicin cream WEEKLY e ESTRACE 2018-[id number] [facility] VAGINAL 0.1 2-13 GRAM [facility] MG/GM 00:00: VAGINALLY of vaginal 00 3 TIMES Medicin cream WEEKLY e ESTRACE 2018-[id number] [facility] VAGINAL 0.1 2-13 GRAM [facility] MG/GM 00:00: VAGINALLY of vaginal 00 3 TIMES Medicin cream WEEKLY e ESTRACE 2018-[id number] [facility] VAGINAL 0.1 2-13 GRAM [facility] MG/GM 00:00: VAGINALLY of vaginal 00 3 TIMES Medicin cream WEEKLY e ESTRACE 2018-[id number] [facility] VAGINAL 0.1 2-13 GRAM [facility] MG/GM 00:00: VAGINALLY of vaginal 00 3 TIMES Medicin cream WEEKLY e ESTRACE [id number] [facility] VAGINAL 0.1 2-13 GRAM [facility] MG/GM 00:00: VAGINALLY of vaginal 00 3 TIMES Medicin cream WEEKLY e ESTRACE [id number] 1 [facility] VAGINAL 0.1 2-13 GRAM [facility] MG/GM 00:00: VAGINALLY of vaginal 00 3 TIMES Medicin cream WEEKLY e ESTRACE [id number] 1 [facility] VAGINAL 0.1 2-13 GRAM [facility] MG/GM 00:00: VAGINALLY of vaginal 00 3 TIMES Medicin cream WEEKLY e ESTRACE [id number] 1 [facility] VAGINAL 0.1 2-13 GRAM [facility] MG/GM 00:00: VAGINALLY of vaginal 00 3 TIMES Medicin cream WEEKLY e ESTRACE 2018-[id number] 1 [facility] VAGINAL 0.1 2-13 GRAM [facility] MG/GM 00:00: VAGINALLY of vaginal 00 3 TIMES Medicin cream WEEKLY e meloxicam 2018-08 Yes [id number] Take 1 [facility] (MOBIC) 7.5 1-14 pills [facility] MG tablet 00:00: orally of 00 once a day Medicin e meloxicam 2018-08 Yes [id number] Take 1 [facility] (MOBIC) 7.5 1-14 pills [facility] MG tablet 00:00: orally of 00 once a day Medicin e meloxicam 2018-08 Yes [id number] Take 1 [facility] (MOBIC) 7.5 1-14 pills [facility] MG tablet 00:00: orally of 00 once a day Medicin e meloxicam 2018-08 Yes [id number] Take 1 [facility] (MOBIC) 7.5 1-14 pills [facility] MG tablet 00:00: orally of 00 once a day Medicin e meloxicam 2018-08 Yes [id number] Take 1 [facility] (MOBIC) 7.5 1-14 pills [facility] MG tablet 00:00: orally of 00 once a day Medicin e meloxicam 2018-08 Yes [id number] Take 1 [facility] (MOBIC) 7.5 1-14 pills [facility] MG tablet 00:00: orally of 00 once a day Medicin e meloxicam 2018-08 Yes [id number] Take 1 [facility] (MOBIC) 7.5 1-14 pills [facility] MG tablet 00:00: orally of 00 once a day Medicin e meloxicam 2018-08 2020- No [id number] Take 1 [facility] (MOBIC) 7.5 1-14 04-29 pills Colleg e MG tablet 00:00: 00:00 orally of 00 :00 once a day Medicin e Rasagiline 2018-08 Yes TAKE 1 [facility] Mesylate 1 0-07 TABLET BY [facility] MG TABS 00:00: MOUTH of 00 EVERY DAY. Medicin e carbidopa-l 2018-08 Yes TAKE 10 [facility] [facility] evodopa 0-07 TABLETS BY [facility] (SINEMET) 00:00: MOUTH of 25-100 MG 00 DAILY.(TK Medic in per tablet 2 TABLETS e WITH FIRST DOSE, THEN 1 TABLET EVERY 2 HOURS WHILE AWAKE) Rasagiline 2018-08 Yes TAKE 1 [facility] Mesylate 1 0-07 TABLET BY [facility] MG TABS 00:00: MOUTH of 00 EVERY DAY. Medicin e carbidopa-l 2018-08 Yes TAKE 10 [place] evodopa 0-07 TABLETS BY [facility] (SINEMET) 00:00: MOUTH of 25-100 MG 00 DAILY.(TK Medic in per tablet 2 TABLETS e WITH FIRST DOSE, THEN 1 TABLET EVERY 2 HOURS WHILE AWAKE) Rasagiline 2018-08 Yes TAKE 1 [facility] Mesylate 1 0-07 TABLET BY [facility] MG TABS 00:00: MOUTH of 00 EVERY DAY. Medicin e carbidopa-l 2018-08 Yes TAKE 10 [place] evodopa 0-07 TABLETS BY [facility] (SINEMET) 00:00: MOUTH of 25-100 MG 00 DAILY.(TK Medic in per tablet 2 TABLETS e WITH FIRST DOSE, THEN 1 TABLET EVERY 2 HOURS WHILE AWAKE) Rasagiline 2018-08 Yes TAKE 1 [facility] Mesylate 1 0-07 TABLET BY [facility] MG TABS 00:00: MOUTH of 00 EVERY DAY. Medicin e carbidopa-l 2018-08 Yes TAKE 10 [place] evodopa 0-07 TABLETS BY [facility] (SINEMET) 00:00: MOUTH of 25-100 MG 00 DAILY.(TK Medic in per tablet 2 TABLETS e WITH FIRST DOSE, THEN 1 TABLET EVERY 2 HOURS WHILE AWAKE) Rasagiline 2018-08 Yes TAKE 1 [facility] Mesylate 1 0-07 TABLET BY [facility] MG TABS 00:00: MOUTH of 00 EVERY DAY. Medicin e carbidopa-l 2018-08 Yes TAKE 10 [place] evodopa 0-07 TABLETS BY [facility] (SINEMET) 00:00: MOUTH of 25-100 MG 00 DAILY.(TK Medic in per tablet 2 TABLETS e WITH FIRST DOSE, THEN 1 TABLET EVERY 2 HOURS WHILE AWAKE) Rasagiline 2018-08 Yes TAKE 1 [facility] Mesylate 1 0-07 TABLET BY [facility] e[facility] MG TABS 00:00: MOUTH of 00 EVERY DAY. Medicin e carbidopa-l 2018-08 Yes TAKE 10 [place] evodopa 0-07 TABLETS BY [facility] (SINEMET) 00:00: MOUTH of 25-100 MG 00 DAILY.(TK Medic in per tablet 2 TABLETS e WITH FIRST DOSE, THEN 1 TABLET EVERY 2 HOURS WHILE AWAKE) Rasagiline 2018-08 Yes TAKE 1 [facility] Mesylate 1 0-07 TABLET BY [facility] MG TABS 00:00: MOUTH of 00 EVERY DAY. Medicin e carbidopa-l 2018-08 Yes TAKE 10 [place] evodopa 0-07 TABLETS BY [facility] (SINEMET) 00:00: MOUTH of 25-100 MG 00 DAILY.(TK Medic in per tablet 2 TABLETS e WITH FIRST DOSE, THEN 1 TABLET EVERY 2 HOURS WHILE AWAKE) Rasagiline 2018-08 Yes TAKE 1 [facility] Mesylate 1 0-07 TABLET BY [facility] MG TABS 00:00: MOUTH of 00 EVERY DAY. Medicin e carbidopa-l 2018-08 Yes TAKE 10 [place] evodopa 0-07 TABLETS BY [facility] (SINEMET) 00:00: MOUTH of 25-100 MG 00 DAILY.(TK Medic in per tablet 2 TABLETS e WITH FIRST DOSE, THEN 1 TABLET EVERY 2 HOURS WHILE AWAKE) Rasagiline 2018-08 Yes TAKE 1 [facility] Mesylate 1 0-07 TABLET BY [facility] MG TABS 00:00: MOUTH of 00 EVERY DAY. Medicin e carbidopa-l 2018-08 Yes TAKE 10 [place] evodopa 0-07 TABLETS BY [facility] (SINEMET) 00:00: MOUTH of 25-100 MG 00 DAILY.(TK Medic in per tablet 2 TABLETS e WITH FIRST DOSE, THEN 1 TABLET EVERY 2 HOURS WHILE AWAKE) Rasagiline 2018-08 Yes TAKE 1 [facility] Mesylate 1 0-07 TABLET BY [facility] e[facility] MG TABS 00:00: MOUTH of 00 EVERY DAY. Medicin e carbidopa-l 2018-08 Yes TAKE 10 [place] evodopa 0-07 TABLETS BY [facility] (SINEMET) 00:00: MOUTH of 25-100 MG 00 DAILY.(TK Medic in per tablet 2 TABLETS e WITH FIRST DOSE, THEN 1 TABLET EVERY 2 HOURS WHILE AWAKE) Rasagiline 2018-08 Yes TAKE 1 [facility] Mesylate 1 0-07 TABLET BY [facility] MG TABS 00:00: MOUTH of 00 EVERY DAY. Medicin e carbidopa-l 2018-08 Yes TAKE 10 [place] evodopa 0-07 TABLETS BY [facility] (SINEMET) 00:00: MOUTH of 25-100 MG 00 DAILY.(TK Medic in per tablet 2 TABLETS e WITH FIRST DOSE, THEN 1 TABLET EVERY 2 HOURS WHILE AWAKE) Rasagiline 2018-08 Yes TAKE 1 [facility] Mesylate 1 0-07 TABLET BY [facility] MG TABS 00:00: MOUTH of 00 EVERY DAY. Medicin e Rasagiline 2018-08 Yes TAKE 1 [facility] Mesylate 1 0-07 TABLET BY [facility] MG TABS 00:00: MOUTH of 00 EVERY DAY. Medicin e Rasagiline 2018-08 Yes TAKE 1 [facility] Mesylate 1 0-07 TABLET BY [facility] e[facility] MG TABS 00:00: MOUTH of 00 EVERY DAY. Medicin e carbidopa-l 2018-08 Yes TAKE 10 [place] evodopa 0-07 TABLETS BY [facility] (SINEMET) 00:00: MOUTH of 25-100 MG 00 DAILY.(TK Medic in per tablet 2 TABLETS e WITH FIRST DOSE, THEN 1 TABLET EVERY 2 HOURS WHILE AWAKE) Rasagiline 2018-08 Yes TAKE 1 [facility] Mesylate 1 0-07 TABLET BY [facility] MG TABS 00:00: MOUTH of 00 EVERY DAY. Medicin e carbidopa-l 2018-08 Yes TAKE 10 [place] evodopa 0-07 TABLETS BY [facility] (SINEMET) 00:00: MOUTH of 25-100 MG 00 DAILY.(TK Medic in per tablet 2 TABLETS e WITH FIRST DOSE, THEN 1 TABLET EVERY 2 HOURS WHILE AWAKE) Loratadine Yes 10mg Take 10 mg [facility] (CLARITIN) 27 by mouth [facility]le [facility] 10 MG CAPS 19:27: daily as of 03 needed. Medicin e Triamcinolo Yes by Nasal [facility] ne 04-28 route [facility] Acetonide 19:27: daily as of (NASACORT 03 needed. Medicin AQ NA) e levothyroxi Yes 75ug Take 75 [place] ne 9-27 mcg by [facility] (SYNTHROID) 19:27: mouth of 75 MCG 03 daily. Medicin tablet e Melatonin Yes 3mg Take 3 mg [place] 10 MG CAPS 927 by mouth Colle ge 19:27: at of 03 bedtime. Medicin e Levodopa Yes 2{capsu Inhale 2 [facility] (INBRIJA) 04-28 le} Caps by [facility] 42 MG CAPS 00:00: mouth of 00 daily as Medicin needed. e Inhale 2 caps as needed for symptoms of OFF period. Not to exceed 5 doses per day. Levodopa Yes 2{capsu Inhale 2 [facility] (INSREEKANTH) 04-28 le} Caps by [facility] 42 MG CAPS 00:00: mouth of 00 daily as Medicin needed. e Inhale 2 caps as needed for symptoms of OFF period. Not to exceed 5 doses per day. Levodopa Yes 2{capsu Inhale 2 [facility] (INSREEKANTH) 04-28 le} Caps by [facility] 42 MG CAPS 00:00: mouth of 00 daily as Medicin needed. e Inhale 2 caps as needed for symptoms of OFF period. Not to exceed 5 doses per day. Levodopa 2020- No 2{capsu Inhale 2 [facility] (INBRHERNANDOA) 04-28 le} Caps by [facility] e 42 MG CAPS 00:00: 00:00 mouth of 00 :00 daily as Medicin needed. e Inhale 2 caps as needed for symptoms of OFF period. Not to exceed 5 doses per day. Carbidopa-L Yes TAKE 1 [facility] evodopa CR 9-11 TABLET BY [facility] ege 50-200 MG 00:00: MOUTH AT of TBCR 00 BEDTIME Medicin e Carbidopa-L Yes TAKE 1 [facility] evodopa CR 9-11 TABLET BY [facility] ege 50-200 MG 00:00: MOUTH AT of TBCR 00 BEDTIME Medicin e Carbidopa-L Yes TAKE 1 [facility] evodopa CR 9-11 TABLET BY [facility] ege 50-200 MG 00:00: MOUTH AT of TBCR 00 BEDTIME Medicin e Carbidopa-L 2020- No TAKE 1 [facility] [facility] evodopa CR 9-11 08-28 TABLET BY [facility]ge 50-200 MG 00:00: 00:00 MOUTH AT of TBCR 00 :00 BEDTIME Medicin e Lisdexamfet Yes 30mg Take 30 mg [facility] amine 9-10 by mouth [facility] Dimesylate 00:00: every of (VYVANSE) 00 morning. Medici n 30 MG CAPS e sulfamethox Yes [id number] 1{tbl} Take 1 Tab [facility] azole-trime 9-10 by mouth [facility] e[facility] thoprim 00:00: two times of (BACTRIM 00 daily. Medicin DS) 800-160 e MG per tablet amoxicillin Yes [id number] 1{tbl} Take 1 Tab [facility] -clavulanat 8-21 by mouth [facility] e[facility] e 00:00: two times of (AUGMENTIN) 00 daily. Medici n 875-125 MG e per tablet Rotigotine Yes 1{patch Place 1 [facility] (NEUPRO) 6 7-24 } Patch onto Col [facility] MG/24HR 00:00: the skin of PT24 00 every 24 Medicin hours. e meloxicam Yes 15mg Take 1 Tab [facility] (MOBIC) 15 7-23 by mouth Colle ge MG tablet 00:00: daily. of Medicin e Mirabegron Yes [id number] 50mg Take 50 mg [facility] ER 50 MG 6-26 by [place] [id number] 00:00: daily. of Medicin e Mirabegron Yes [id number] 50mg Take 50 mg [facility] ER 50 MG 6-26 by mouth [place] [address] 00:00: daily. of Medicin e Mirabegron Yes [id number] 50mg Take 50 mg [facility] ER 50 MG 6-26 by mouth [place] [address] 00:00: daily. of Medicin e Mirabegron Yes [id number] 50mg Take 50 mg [facility] ER 50 MG 6-26 by mouth [place] [address] 00:00: daily. of Medicin e Mirabegron Yes [id number] 50mg Take 50 mg [facility] ER 50 MG 6-26 by mouth [place] [address] 00:00: daily. of Medicin e Mirabegron Yes [id number] 50mg Take 50 mg [facility] ER 50 MG 6-26 by mouth [place] [address] 00:00: daily. of Medicin e entacapone Yes 1 tablet [facility] (COMTAN) 6-26 by mouth 8 [facility] 200 MG 00:00: times a of tablet 00 day Medicin e Mirabegron Yes [id number] 50mg Take 50 mg [facility] ER 50 MG 6-26 by mouth [place] [address] 00:00: daily. of Medicin e entacapone Yes 1 tablet [place] [facility] (COMTAN) 01-25 by mouth 8 [facility] 200 MG 00:00: times a of tablet 00 day Medicin e Mirabegron Yes [id number] 50mg Take 50 mg [facility] ER 50 MG 01-25 by mouth [place] [address] 00:00: daily. of Medicin e entacapone Yes 1 tablet [facility] [facility] (COMTAN) 01-25 by mouth 8 [facility]le [facility] 200 MG 00:00: times a of tablet 00 day Medicin e Mirabegron 2020- No [id number] 50mg Take 50 mg [facility] ER 50 MG 01-2520 by mouth [place] [id number] 00:00: 00:00 daily. of 00 :00 Medicin e entacapone 2020- No 1 tablet [facility] (COMTAN) 01-25 by mouth 8 [facility] 200 MG 00:00: 00:00 times a of tablet 00 :00 day Medicin e Levodopa 2019- No 2{capsu Inhale 2 [facility] (INBRIJA) 4-12 04-28 le} Caps by Colle e 42 MG CAPS 00:00: 00:00 mouth of 00 :00 daily as Medicin needed. e Inhale 2 caps as needed for symptoms of OFF period. Not to exceed 5 doses per day. carbidopa-l 2017-08 Yes 10 tablets [facility] evodopa 2-17 daily (2 [facility] (SINEMET) 00:00: tablets of 25-100 MG 00 with first Medi isabel per tablet dose then e 1 tablet every 2 hours while awake) AZILECT 1 Yes TAKE 1 [facility] MG TABS 8-30 TABLET BY [facility] 00:00: MOUTH of 00 EVERY DAY Medicin e estradiol Yes [id number] 1g Place 1 g [facility] (ESTRACE 7-26 vaginally [facility] VAGINAL) 00:00: 3 times of 0.1 MG/GM 00 weekly. Medicin vaginal e cream levothyroxi Yes 75ug Take 75 [facility] ne 1-[address] (SYNTHROID, 19:23: mouth. [facility] LEVOXYL) 75 18 l mcg tablet melatonin Yes 3mg Take 3 mg [facility] 10 mg 1-[address] capsule 19:23: Hospita 18 l levothyroxi Yes 75ug Take 75 [facility] ne 1-[address] (SYNTHROID, 13:23: mouth. [facility] LEVOXYL) 75 18 l mcg tablet melatonin Yes 3mg Take 3 mg [facility] 10 mg 1-[address] capsule 13:23: Hospita 18 l NEUPRO 8 2016-08 Yes [facility] mg/24 hour 2-31 st patch 24 00:00: Hospita hour 00 l AZILECT 1 2016-08 Yes TK 1 T PO [facility] mg tablet 2-[address] 00:00: Hospita 00 l NEUPRO 8 2016-08 Yes [facility] mg/24 hour 2-31 [facility] patch 24 00:00: Hospita hour 00 l AZILECT 1 2016-08 Yes TK 1 T PO [facility] mg tablet 2-[address] 00:00: [facility]ospita 00 l carbidopa-l 2016-08 Yes TK 1 AND [facility] evodopa 2 1/[address] (SINEMET) 00:00: FID [facility]osp[facility] 25-100 mg 00 l per tablet carbidopa-l 2016-08 Yes TK 1 AND [facility] evodopa 09-28 1/[address] (SINEMET) 00:00: FID [facility] 25-100 mg 00 l per tablet entacapone 2016-08 Yes TK 1 T PO [facility] (COMTAN) 1-[address] 200 mg 00:00: Hospita tablet 00 l AmANTadine 2016-08 Yes TK ONE C [facility] (SYMMETREL) 1-[address] 100 mg 00:00: 1 WEEK [facility] capsule 00 THEN TID D l THEREAFTER entacapone 2016-08 Yes TK 1 T PO [facility] (COMTAN) 1-[address] 200 mg 00:00: Hospita tablet 00 l AmANTadine 2016-08 Yes TK ONE C [facility] (SYMMETREL) 1-[address] 100 mg 00:00: 1 WEEK [facility] capsule 00 THEN TID D l THEREAFTER dexmethylph 2016-08 Yes TK 2 CS PO [facility] enidate XR 0-[address] (FOCALIN 00:00: Hospita XR) 10 MG 00 l 24 hr capsule dexmethylph 2017- Yes TK 2 CS PO [facility] enidate XR 0-[address] (FOCALIN 00:00: Hospita XR) 10 MG 00 l 24 hr capsule Immunizations Ordered Immunization Filled Immunization Date Status Commen ts Source Name Name Influenza 2018-04-22 Completed [facility] 3YRS+ 00:00:00 of Med icine Influenza 2018-04-22 Completed [facility] 3YRS+ 00:00:00 of Med icine Influenza 2018-04-22 Completed [facility] 3YRS+ 00:00:00 of Med icine Influenza 2018-04-22 Completed [facility] 3YRS+ 00:00:00 of Med icine Influenza 2018-04-22 Completed [facility] 3YRS+ 00:00:00 of Med icine Influenza 2018-04-22 Completed [facility] 3YRS+ 00:00:00 of Med icine Influenza 2018-04-22 Completed [facility] 3YRS+ 00:00:00 of Med icine Influenza 2018-04-22 Completed [facility] 3YRS+ 00:00:00 of Med icine Influenza 2018-04-22 Completed [facility] 3YRS+ 00:00:00 of Med icine Influenza 2018-04-22 Completed [facility] 3YRS+ 00:00:00 of Med icine Influenza 2018-04-22 Completed [facility] 3YRS+ 00:00:00 of Med icine Influenza 2018-04-22 Completed [facility] 3YRS+ 00:00:00 of Med icine Influenza 2018-04-22 Completed [facility] 3YRS+ 00:00:00 of Med icine Influenza 2018-04-22 Completed [facility] 3YRS+ 00:00:00 of Med icine Influenza 2018-04-22 Completed [facility] 3YRS+ 00:00:00 of Med icine Influenza 2018-04-22 Completed [facility] 3YRS+ 00:00:00 of Med icine Influenza 2018-04-22 Completed [facility] 3YRS+ 00:00:00 of Med icine Influenza 2018-04-22 Completed [facility] 3YRS+ 00:00:00 of Med icine Influenza 2018-04-22 Completed [facility] 3YRS+ 00:00:00 of Med icine Influenza 2018-04-22 Completed [facility] 3YRS+ 00:00:00 of Med icine Influenza 2018-04-22 Completed [facility] 3YRS+ 00:00:00 of Med icine Influenza 2018-04-22 Completed [facility] 3YRS+ 00:00:00 of Med icine Influenza 2018-04-22 Completed [facility] 3YRS+ 00:00:00 of Med icine Influenza 2018-04-22 Completed [facility] 3YRS+ 00:00:00 of Med icine Influenza 2018-04-22 Completed [facility] 3YRS+ 00:00:00 of Med icine Influenza 2018-04-22 Completed [facility] 3YRS+ 00:00:00 of Med icine Influenza 2018-04-22 Completed [facility] 3YRS+ 00:00:00 of Med icine Influenza Quad-PF 2017-08-26 Completed [facility] 00:00:00 of Medicine Influenza Quad-PF 2017-08-26 Completed [facility] 00:00:00 of Medicine Influenza Quad-PF 2017-08-26 Completed [facility] 00:00:00 of Medicine Influenza Quad-PF 2017-08-26 Completed [facility] 00:00:00 of Medicine Influenza Quad-PF 2017-08-26 Completed [facility] 00:00:00 of Medicine Influenza Quad-PF 2017-08-26 Completed [facility] 00:00:00 of Medicine Influenza Quad-PF 2017-08-26 Completed [facility] 00:00:00 of Medicine Influenza Quad-PF 2017-08-26 Completed [facility] 00:00:00 of Medicine Influenza Quad-PF 2017-08-26 Completed [facility] 00:00:00 of Medicine Influenza Quad-PF 2017-08-26 Completed [facility] 00:00:00 of Medicine Influenza Quad-PF 2017-08-26 Completed [facility] 00:00:00 of Medicine Influenza Quad-PF 2017-08-26 Completed [facility] 00:00:00 of Medicine Influenza Quad-PF 2017-08-26 Completed [facility] 00:00:00 of Medicine Influenza Quad-PF 2017-08-26 Completed [facility] 00:00:00 of Medicine Influenza Quad-PF 2017-08-26 Completed [facility] 00:00:00 of Medicine Influenza Quad-PF 2017-08-26 Completed [facility] 00:00:00 of Medicine Influenza Quad-PF 2017-08-26 Completed [facility] 00:00:00 of Medicine Influenza Quad-PF 2017-08-26 Completed [facility] 00:00:00 of Medicine Influenza Quad-PF 2017-08-26 Completed [facility] 00:00:00 of Medicine Influenza Quad-PF 2017-08-26 Completed [facility] 00:00:00 of Medicine Influenza Quad-PF 2017-08-26 Completed [facility] 00:00:00 of Medicine Influenza Quad-PF 2017-08-26 Completed [facility] 00:00:00 of Medicine Influenza Quad-PF 2017-08-26 Completed [facility] 00:00:00 of Medicine Influenza Quad-PF 2017-08-26 Completed [facility] 00:00:00 of Medicine Influenza Quad-PF 2017-08-26 Completed [facility] 00:00:00 of Medicine Influenza Quad-PF 2017-08-26 Completed [facility] 00:00:00 of Medicine Influenza Quad-PF 2017-08-26 Completed [facility] 00:00:00 of Medicine Vital Signs Vital Name Observation Time Observation Value Comments Source HEIGHT 2020-10-22 06:14:00 170.2 cm WEIGHT 2020-10-22 06:14:00 75.8 kg HEIGHT 2020-10-18 11:54:00 170.2 cm WEIGHT 2020-10-18 11:54:00 63.504 kg HEIGHT 2020-09-06 06:26:00 170.2 cm WEIGHT 2020-09-06 06:26:00 69.9 kg HEIGHT 2020-09-03 09:49:00 170.2 cm WEIGHT 2020-09-03 09:49:00 68.04 kg WEIGHT 2020-07-15 11:00:00 70.4 kg HEIGHT 2020-07-15 11:00:00 170.2 cm Systolic blood 2021-11-20 20:37:00 132 mm[Hg] [facility] pressure Medicine Diastolic blood 2021-11-20 20:37:00 70 mm[Hg] [facility] pressure Medicine Heart rate 2021-11-20 20:37:00 70 /min [facility] Body height 2021-11-20 20:37:00 170.2 cm [facility] Body weight 2021-11-20 20:37:00 74.844 kg [facility] BMI 2021-11-20 20:37:00 25.84 kg/m2 [facility] Medicine Systolic blood 2021-10-02 16:29:00 169 mm[Hg] [facility] of pressure Medicine Diastolic blood 2021-10-02 16:29:00 100 mm[Hg] [facility] Medicine Heart rate 2021-10-02 16:29:00 72 /min [facility] Medicine Respiratory rate 2021-10-02 16:29:00 16 /min [facility] Body weight 2021-10-02 16:29:00 77.111 kg [facility] BMI 2021-10-02 16:29:00 26.63 kg/m2 [facility] Systolic blood 2021-08-14 19:14:00 171 mm[Hg] [facility] pressure Medicine Diastolic blood 2021-08-14 19:14:00 86 mm[Hg] [facility] pressure Medicine Heart rate 2021-08-14 19:14:00 72 /min [facility] Respiratory rate 2021-08-14 19:14:00 16 /min [facility] Systolic blood 2021-07-29 18:10:00 151 mm[Hg] [facility] pressure Medicine Diastolic blood 2021-07-29 18:10:00 86 mm[Hg] [facility] Medicine Heart rate 2021-07-29 18:10:00 88 /min [facility] Body temperature 2021-07-29 18:10:00 36.56 Faith [facility] Body weight 2021-07-29 18:10:00 73.936 kg [facility] BMI 2021-07-29 18:10:00 25.53 kg/m2 [facility] Heart rate 2021-02-04 13:34:00 64 /min [facility] Body temperature 2021-02-04 13:34:00 36.94 Faith [facility] Respiratory rate 2021-02-04 13:34:00 16 /min [facility] Body weight 2021-02-04 13:34:00 [facility].072 [facility] 2021-02-04 13:34:00 25.58 kg/m2 [facility] Heart rate 2021-02-04 13:34:00 64 /[facility] Body temperature 2021-02-04 13:34:00 36.94 [facility] Respiratory rate 2021-02-04 13:34:00 16 /min [facility] Body weight 2021-02-04 13:34:00 74.072 kg [facility] BMI 2021-02-04 13:34:00 25.58 kg/m2 [facility] Systolic blood 2020-11-11 16:53:00 131 mm[Hg] [facility] pressure Medicine Diastolic blood 2020-11-11 16:53:00 82 mm[Hg] [facility] pressure Medicine Heart rate 2020-11-11 16:53:00 71 /min [facility] Body temperature 2020-11-11 16:53:00 36.78 Faith [facility] Respiratory rate 2020-11-11 16:53:00 12 /min [facility] Body height 2020-11-11 16:53:00 170.2 cm [facility] Body weight 2020-11-11 16:53:00 76.34 kg [facility] BMI 2020-11-11 16:53:00 26.36 kg/m2 [facility] Systolic blood 2020-11-11 16:53:00 131 mm[Hg] [facility] of pressure Medicine Diastolic blood 2020-11-11 16:53:00 82 mm[Hg] [facility] pressure Medicine Heart rate 2020-11-11 16:53:00 71 /min [facility] Body temperature 2020-11-11 16:53:00 36.78 Faith [facility] Respiratory rate 2020-11-11 16:53:00 12 /min [facility] Body height 2020-11-11 16:53:00 170.2 cm [facility] Body weight 2020-11-11 16:53:00 76.34 [facility] BMI 2020-11-11 16:53:00 26.36 kg/m2 [facility] Systolic blood 2020-11-05 20:26:00 141 mm[Hg] [facility] pressure Medicine Diastolic blood 2020-11-05 20:26:00 78 mm[Hg] [facility] Medicine Heart rate 2020-11-05 20:26:00 75 /min [facility] Body temperature 2020-11-05 20:26:00 35.83 Faith [facility] Respiratory rate 2020-11-05 20:26:00 16 /min [facility] Body height 2020-11-05 20:26:00 170.2 cm [facility] Body weight 2020-11-05 20:26:00 76.204 kg [facility] BMI 2020-11-05 20:26:00 26.31 kg/m2 [facility] Oxygen saturation in 2020-11-05 20:26:00 99 /min [facility] Arterial blood by [facility] Pulse oximetry Systolic blood 2020-11-05 20:26:00 141 mm[Hg] [facility] pressure Medicine Diastolic blood 2020-11-05 20:26:00 78 mm[Hg] [facility] Medicine Heart rate 2020-11-05 20:26:00 75 /min [facility] Body temperature 2020-11-05 20:26:00 35.83 Faith [facility] Respiratory rate 2020-11-05 20:26:00 16 /min [facility] Body height 2020-11-05 20:26:00 170.2 cm [facility] Body weight 2020-11-05 20:26:00 76.204 kg [facility] BMI 2020-11-05 20:26:00 26.31 kg/m2 [facility] Oxygen saturation in 2020-11-05 20:26:00 99 /min [facility] Arterial blood by [facility] Pulse oximetry HEIGHT 2020-10-22 06:14:00 170.2 cm WEIGHT 2020-10-22 06:14:00 75.8 kg HEIGHT 2020-10-18 11:54:00 170.2 cm WEIGHT 2020-10-18 11:54:00 63.504 kg HEIGHT 2020-09-06 06:26:00 170.2 cm WEIGHT 2020-09-06 06:26:00 69.9 kg HEIGHT 2020-09-03 09:49:00 170.2 cm WEIGHT 2020-09-03 09:49:00 68.04 kg Systolic blood 2020-08-21 17:47:00 155 mm[Hg] [facility] pressure Medicine Diastolic blood 2020-08-21 17:47:00 91 mm[Hg] [facility] Medicine Heart rate 2020-08-21 17:47:00 71 /min [facility] Body temperature 2020-08-21 17:47:00 36.44 Faith [facility] Respiratory rate 2020-08-21 17:47:00 12 /min [facility] Body height 2020-08-21 17:47:00 170.2 cm [facility] Body weight 2020-08-21 17:47:00 74.027 kg [facility] BMI 2020-08-21 17:47:00 25.56 kg/m2 [facility] Systolic blood 2020-08-21 17:47:00 155 mm[Hg] [facility] pressure Medicine Diastolic blood 2020-08-21 17:47:00 91 mm[Hg] [facility] pressure Medicine Heart rate 2020-08-21 17:47:00 71 /min [facility] Body temperature 2020-08-21 17:47:00 36.44 Faith [facility] Respiratory rate 2020-08-21 17:47:00 12 /min [facility] Body height 2020-08-21 17:47:00 170.2 cm [facility] Body weight 2020-08-21 17:47:00 74.027 kg [facility] BMI 2020-08-21 17:47:00 25.56 kg/m2 [facility] Systolic blood 2020-08-21 15:35:00 128 mm[Hg] [facility] pressure Medicine Diastolic blood 2020-08-21 15:35:00 78 mm[Hg] [facility] Medicine Heart rate 2020-08-21 15:35:00 73 /min [facility] Respiratory rate 2020-08-21 15:35:00 16 /min [facility] Body height 2020-08-21 15:35:00 170.2 cm [facility] Body weight 2020-08-21 15:35:00 74.39 kg [facility] BMI 2020-08-21 15:35:00 25.69 kg/m2 [facility] Systolic blood 2020-08-21 15:35:00 128 mm[Hg] [facility] Medicine Diastolic blood 2020-08-21 15:35:00 78 mm[Hg] [facility] Medicine Heart rate 2020-08-21 15:35:00 73 /min [facility] Respiratory rate 2020-08-21 15:35:00 16 /min [facility] Body height 2020-08-21 15:35:00 170.2 cm [facility] Body weight 2020-08-21 15:35:00 74.39 kg [facility] BMI 2020-08-21 15:35:00 25.69 kg/m2 [facility] WEIGHT 2020-07-15 11:00:00 70.4 kg HEIGHT 2020-07-15 11:00:00 170.2 cm Systolic blood 2020-06-21 18:57:00 144 mm[Hg] [facility] pressure Medicine Diastolic blood 2020-06-21 18:57:00 87 mm[Hg] [facility] Medicine Heart rate 2020-06-21 18:57:00 75 /min [facility] Body temperature 2020-06-21 18:57:00 36.61 Faith [facility] Systolic blood 2020-06-21 18:57:00 144 mm[Hg] [facility] of pressure Medicine Diastolic blood 2020-06-21 18:57:00 87 mm[Hg] [facility] pressure Medicine Heart rate 2020-06-21 18:57:00 75 /min [facility] Body temperature 2020-06-21 18:57:00 36.61 Faith [facility] Systolic blood 2020-05-23 16:31:00 161 mm[Hg] [facility] of pressure Medicine Diastolic blood 2020-05-23 16:31:00 90 mm[Hg] [facility] of pressure Medicine Heart rate 2020-05-23 16:31:00 78 /min [facility] Body height 2020-05-23 16:31:00 170.2 cm [facility] Body weight 2020-05-23 16:31:00 65.772 kg [facility] BMI 2020-05-23 16:31:00 22.71 kg/m2 [facility] Systolic blood 2020-05-23 16:31:00 161 mm[Hg] [facility] of pressure Medicine Diastolic blood 2020-05-23 16:31:00 90 mm[Hg] [facility] of pressure Medicine Heart rate 2020-05-23 16:31:00 78 /min [facility] Body height 2020-05-23 16:31:00 170.2 cm [facility] Body weight 2020-05-23 16:31:00 65.772 kg [facility] BMI 2020-05-23 16:31:00 22.71 kg/m2 [facility] Systolic blood 2020-05-22 15:17:00 156 mm[Hg] [facility] of pressure Medicine Diastolic blood 2020-05-22 15:17:00 87 mm[Hg] [facility] of pressure Medicine Heart rate 2020-05-22 15:17:00 72 /min [facility] Body temperature 2020-05-22 15:17:00 36.56 Faith [facility] Respiratory rate 2020-05-22 15:17:00 16 /min [facility] Body height 2020-05-22 15:17:00 170.2 cm [facility] Body weight 2020-05-22 15:17:00 70.943 kg [facility] BMI 2020-05-22 15:17:00 24.50 kg/m2 [facility] Systolic blood 2020-05-22 15:17:00 156 mm[Hg] [facility] pressure Medicine Diastolic blood 2020-05-22 15:17:00 87 mm[Hg] [facility] pressure Medicine Heart rate 2020-05-22 15:17:00 72 /min [facility] Body temperature 2020-05-22 15:17:00 36.56 Faith [facility] Respiratory rate 2020-05-22 15:17:00 16 /min [facility] Body height 2020-05-22 15:17:00 170.2 cm [facility] Body weight 2020-05-22 15:17:00 70.943 kg [facility] BMI 2020-05-22 15:17:00 24.50 kg/m2 [facility] Systolic blood 2020-05-02 16:44:00 186 mm[Hg] [facility] of pressure Medicine Diastolic blood 2020-05-02 16:44:00 92 mm[Hg] [facility] pressure Medicine Heart rate 2020-05-02 16:44:00 76 /min [facility] Body temperature 2020-05-02 16:44:00 36.78 Faith [facility] Body height 2020-05-02 16:44:00 170.2 cm [facility] Body weight 2020-05-02 16:44:00 63.504 kg [facility] BMI 2020-05-02 16:44:00 21.93 kg/m2 [facility] Medicine Systolic blood 2020-05-02 16:44:00 186 mm[Hg] [facility] of pressure Medicine Diastolic blood 2020-05-02 16:44:00 92 mm[Hg] [employer] of pressure Medicine Heart rate 2020-05-02 16:44:00 76 /min [facility] Body temperature 2020-05-02 16:44:00 36.78 Faith [facility] Body height 2020-05-02 16:44:00 170.2 cm [facility] Body weight 2020-05-02 16:44:00 63.504 kg [facility] BMI 2020-05-02 16:44:00 21.93 kg/m2 [facility] Systolic blood 2020-02-21 18:07:00 158 mm[Hg] [facility] Medicine Diastolic blood 2020-02-21 18:07:00 78 mm[Hg] [facility] Medicine Heart rate 2020-02-21 18:07:00 68 /min [facility] Body temperature 2020-02-21 18:07:00 37 Faith [facility] Respiratory rate 2020-02-21 18:07:00 12 /min [facility] Body height 2020-02-21 18:07:00 170.2 cm [facility] Body weight 2020-02-21 18:07:00 70.126 kg [facility] BMI 2020-02-21 18:07:00 24.21 kg/m2 [facility] Systolic blood 2020-02-21 18:07:00 158 mm[Hg] [facility] Medicine Diastolic blood 2020-02-21 18:07:00 78 mm[Hg] [facility] Medicine Heart rate 2020-02-21 18:07:00 68 /min [facility] Body temperature 2020-02-21 18:07:00 37 Faith [facility] Respiratory rate 2020-02-21 18:07:00 12 /min [facility] Body height 2020-02-21 18:07:00 170.2 cm [facility] Body weight 2020-02-21 18:07:00 70.126 kg [facility] BMI 2020-02-21 18:07:00 24.21 kg/m2 [facility] Systolic blood 2020-01-04 15:57:00 150 mm[Hg] [facility] pressure Medicine Diastolic blood 2020-01-04 15:57:00 70 mm[Hg] [facility] Medicine Heart rate 2020-01-04 15:57:00 74 /min [facility] Body temperature 2020-01-04 15:57:00 36.94 Faith [facility] Respiratory rate 2020-01-04 15:57:00 18 /min [facility] Body height 2020-01-04 15:57:00 170.2 cm [facility] Body weight 2020-01-04 15:57:00 [facility].396 [facility] BMI 2020-01-04 15:57:00 24.65 kg/m2 [facility] Systolic blood 2020-01-04 15:57:00 150 mm[Hg] [facility] Medicine Diastolic blood 2020-01-04 15:57:00 70 mm[Hg] [facility] Medicine Heart rate 2020-01-04 15:57:00 74 /min [facility] Body temperature 2020-01-04 15:57:00 36.94 Faith [facility] Respiratory rate 2020-01-04 15:57:00 18 /min [facility] Body height 2020-01-04 15:57:00 170.2 cm [facility] Body weight 2020-01-04 15:57:00 71.396 kg [facility] BMI 2020-01-04 15:57:00 24.65 kg/m2 [facility] Systolic blood 2019-11-22 14:18:00 97 mm[Hg] [facility] Medicine Diastolic blood 2019-11-22 14:18:00 61 mm[Hg] [facility] pressure Medicine Heart rate 2019-11-22 14:18:00 82 /min [facility] Body temperature 2019-11-22 14:18:00 36.83 Faith [facility] Respiratory rate 2019-11-22 14:18:00 18 /min [facility] Body height 2019-11-22 14:18:00 170.2 cm [facility] Body weight 2019-11-22 14:18:00 70.852 kg [facility] BMI 2019-11-22 14:18:00 24.46 kg/m2 [facility] Systolic blood 2019-11-22 14:18:00 97 mm[Hg] [facility] of pressure Medicine Diastolic blood 2019-11-22 14:18:00 61 mm[Hg] [facility] Medicine Heart rate 2019-11-22 14:18:00 82 /min [facility] Body temperature 2019-11-22 14:18:00 36.83 Faith [facility] Respiratory rate 2019-11-22 14:18:00 18 /min [facility] Body height 2019-11-22 14:18:00 170.2 cm [facility] Body weight 2019-11-22 14:18:00 70.852 kg [facility] BMI 2019-11-22 14:18:00 24.46 kg/m2 [facility] Systolic blood 2019-10-04 16:25:00 146 mm[Hg] [facility] pressure Medicine Diastolic blood 2019-10-04 16:25:00 87 mm[Hg] [facility] Medicine Heart rate 2019-10-04 16:25:00 71 /min [facility] Body temperature 2019-10-04 16:25:00 36.61 Faith [facility] Respiratory rate 2019-10-04 16:25:00 12 /min [facility] Body weight 2019-10-04 16:25:00 71.759 kg [facility] BMI 2019-10-04 16:25:00 24.78 kg/m2 [facility] Systolic blood 2019-10-04 16:25:00 146 mm[Hg] [facility] pressure Medicine Diastolic blood 2019-10-04 16:25:00 87 mm[Hg] [facility] pressure Medicine Heart rate 2019-10-04 16:25:00 71 /min [facility] Body temperature 2019-10-04 16:25:00 36.61 Faith [facility] Respiratory rate 2019-10-04 16:25:00 12 /min [facility] Body weight 2019-10-04 16:25:00 71.759 kg [facility] BMI 2019-10-04 16:25:00 24.78 kg/m2 [facility] Systolic blood 2019-09-20 15:59:00 141 mm[Hg] [facility] pressure Medicine Diastolic blood 2019-09-20 15:59:00 88 mm[Hg] [facility] Medicine Heart rate 2019-09-20 15:59:00 67 /min [facility] Body temperature 2019-09-20 15:59:00 36.44 Faith [facility] Respiratory rate 2019-09-20 15:59:00 16 /min [facility] Body height 2019-09-20 15:59:00 170.2 cm [facility] Body weight 2019-09-20 15:59:00 73.483 [facility] BMI 2019-09-20 15:59:00 25.37 kg/m2 [facility] Systolic blood 2019-09-20 15:59:00 141 mm[Hg] [facility] Medicine Diastolic blood 2019-09-20 15:59:00 88 mm[Hg] [facility] Medicine Heart rate 2019-09-20 15:59:00 67 /min [facility] Body temperature 2019-09-20 15:59:00 36.44 Faith [facility] Respiratory rate 2019-09-20 15:59:00 16 /min [facility] Body height 2019-09-20 15:59:00 170.2 cm [facility] Body weight 2019-09-20 15:59:00 73.483 kg [facility] BMI 2019-09-20 15:59:00 25.37 kg/m2 [facility] Systolic blood 2019-09-13 16:28:00 144 mm[Hg] [facility] of pressure Medicine Diastolic blood 2019-09-13 16:28:00 83 mm[Hg] [facility] pressure Medicine Heart rate 2019-09-13 16:28:00 70 /min [facility] Body temperature 2019-09-13 16:28:00 36.44 Faith [facility] Respiratory rate 2019-09-13 16:28:00 16 /min [facility] Body height 2019-09-13 16:28:00 170.[address] [facility] Body weight 2019-09-13 16:28:00 73.483 kg [facility] BMI 2019-09-13 16:28:00 25.37 kg/m2 [facility] Systolic blood 2019-09-13 16:28:00 144 mm[Hg] [facility] of pressure Medicine Diastolic blood 2019-09-13 16:28:00 83 mm[Hg] [facility] pressure Medicine Heart rate 2019-09-13 16:28:00 70 /min [facility] Body temperature 2019-09-13 16:28:00 36.44 Faith [facility] Respiratory rate 2019-09-13 16:28:00 16 /min [facility] Body height 2019-09-13 16:28:00 170.2 cm [facility] Body weight 2019-09-13 16:28:00 73.483 kg [facility] ol[facility] of [facility] [facility] BMI 2019-09-13 16:28:00 25.37 kg/m2 [facility] [employer] [facility] [employer] Systolic blood 2019-08-28 17:28:00 117 mm[Hg] [facility] of pressure Medicine Diastolic blood 2019-08-28 17:28:00 76 mm[Hg] [facility] pressure Medicine Heart rate 2019-08-28 17:28:00 79 /min [facility] [employer] Body temperature 2019-08-28 17:25:00 36.5 Faith [facility] Respiratory rate 2019-08-28 17:25:00 18 /min [facility] Body height 2019-08-28 17:25:00 170.2 cm [facility] [employer] Body weight 2019-08-28 17:25:00 71.532 kg [facility] [employer] BMI 2019-08-28 17:25:00 24.70 kg/m2 [facility] [employer] Systolic blood 2019-08-28 17:28:00 117 mm[Hg] [facility] pressure Medicine Diastolic blood 2019-08-28 17:28:00 76 mm[Hg] [facility] Medicine Heart rate 2019-08-28 17:28:00 79 /min [facility] C [employer] of Medicine Body temperature 2019-08-28 17:25:00 36.5 Faith [facility] Respiratory rate 2019-08-28 17:25:00 18 /min [facility] Body height 2019-08-28 17:25:00 170.2 cm [facility] C [employer] [facility] [employer] Body weight 2019-08-28 17:25:00 71.532 kg [facility] C [employer] [facility] [employer] BMI 2019-08-28 17:25:00 24.70 kg/m2 [facility] [employer] Systolic blood 2019-04-28 19:26:00 135 mm[Hg] [facility] pressure Medicine Diastolic blood 2019-04-28 19:26:00 94 mm[Hg] [facility] Medicine Heart rate 2019-04-28 19:26:00 88 /min [facility] C [employer] [facility] [employer] Body height 2019-04-28 19:26:00 170.2 cm [facility] C [employer] Body weight 2019-04-28 19:26:00 71.668 kg [facility] [employer] BMI 2019-04-28 19:26:00 24.75 kg/m2 [facility] C [employer] [facility] [employer] Systolic blood 2019-04-28 19:26:00 135 mm[Hg] [facility] pressure Medicine Diastolic blood 2019-04-28 19:26:00 94 mm[Hg] [facility] Medicine Heart rate 2019-04-28 19:26:00 88 /min [facility] [employer] Body height 2019-04-28 19:26:00 170.2 cm [facility] C [employer] Body weight 2019-04-28 19:26:00 71.668 kg [facility] C [employer] [facility] [employer] BMI 2019-04-28 19:26:00 24.75 kg/m2 [facility] C [employer] Systolic blood 2020-10-22 12:38:00 144 mm[Hg] [facility] Diastolic blood 2020-10-22 12:38:00 79 mm[Hg] [facility] pressure [facility] Heart rate 2020-10-22 12:38:00 77 /min [facility] Body temperature 2020-10-22 12:38:00 36 [facility] Respiratory rate 2020-10-22 12:38:00 18 /min [facility] Oxygen saturation in 2020-10-22 12:38:00 99 /min [facility] Arterial blood by Medical Ce nter Pulse oximetry Body height 2020-10-22 06:14:00 170.2 cm [facility] Body weight 2020-10-22 06:14:00 75.8 kg [facility] BMI 2020-10-22 06:14:00 26.17 kg/m2 [facility] Procedures Procedure Date / Time Performing Clinician Source Performed POCT URINALYSIS DIPSTICK 2021-11-20 00:00:00 Patricia Forrest [facility] POCT URINALYSIS DIPSTICK 2021-08-14 13:14:55 [facility] TISSUE EXAM 2020-10-22 09:14:00 Carmine Jean [facility] IMPLANTATION,PULSE 2020-10-22 08:22:00 Carmine Jean [facility] GENERATOR DEEP BRAIN Medical Cady ter STIMULATOR STAGE 2 PROCEDURE W/ C-ARM 2020-10-22 08:22:00 Caroline, Ashwin [facility] SARS-COV2/RT-PCR ([facility] & 2020-10-17 08:46:00 Carmine Jean [facility] REF LABS) [facility] URINALYSIS W/ REFLEX 2020-10-17 08:46:00 Carmine Jean [facility] URINE CULTURE [facility] [place] BASIC METABOLIC PANEL 2020-10-17 08:46:[address] [facility] (7) [facility] CBC W/PLT COUNT & AUTO 2020-10-17 08:46:00 Carmine Jean [facility] DIFFERENTIAL [facility] PROTHROMBIN TIME/INR 2020-10-17 08:46:00 Caroline, [facility] PT/APTT 2020-10-17 08:46:00 [facility] TYPE AND SCREEN, 2020-10-17 08:46:00 Caroline, Ashwin [facility] AUTOMATED [facility] XR CHEST 2 VIEWS 2020-09-03 12:57:00 Caroline, Ashwin [facility] ECG 12-LEAD 2020-09-03 12:47:14 Unknown, Hl7 Doctor [facility] SARS-COV2/RT-PCR ([facility] & 2020-09-03 11:31:00 Caroline [facility] REF LABS) [facility] URINALYSIS W/ REFLEX 2020-09-03 11:31:00 Caroline, [facility] URINE CULTURE [facility] BASIC METABOLIC PANEL 2020-09-03 11:31:[address] [facility] (7) [facility] CBC W/PLT COUNT & AUTO 2020-09-03 11:31:00 Carmine Jean [facility] DIFFERENTIAL [facility] PT/APTT 2020-09-03 11:31:00 [facility] ABORH, MANUAL 2020-09-03 11:31:00 Caroline [facility] FL FLUORO NON-SPECIFIC 2020-07-15 15:00:00 Nicolle Casas CH, I [facility] UP TO 1 HOUR [facility] PLACEMENT,INTERSTIM 2020-07-15 13:27:00 Nicolle Casas [facility] PROGRAMMING & 2020-07-15 13:27:00 Nicolle Casas [facility] ANALYSIS,NEUROSTIMULATOR [facility] PROCEDURE W/ C-ARM 2020-07-15 13:27:00 Nicolle Casas [facility] ECG 12-LEAD 2020-07-15 00:00:00 Luis Manuel Yeung [facility] URINE CULTURE 2020-07-10 12:24:00 [facility] SARS-COV2/RT-PCR ([facility] & 2020-07-10 12:24:[address] REF LABS[facility] URINALYSIS W/ 2020-07-10 12:24:00 Nicolle Casas CHIs MICROSCOPIC [facility] BASIC METABOLIC PANEL 2020-07-10 12:24:00 Nicolle Casas CHI (7) [facility] CBC W/PLT COUNT & AUTO 2020-07-10 12:24:[address] [facility] DIFFERENTIAL [facility] POCT URINALYSIS DIPSTICK 2020-05-23 00:00:00 Nicolle Casas [facility] ALYX,POST-VOID 2020-05-23 00:00:00 Nicolle Casas [facility],US,NON-IMG Medicine Plan of Care Planned Activity Planned Date Details Comments Source Future Scheduled 2022-05-22 CT ABDOMEN PELVIS W WO Expected: [facility] Test 00:00:00 CONTRAST [code = 05/22/2022 of Medicine 72736-5] (Approximate), Expires: 11/20/2022 Future Scheduled 2022-04-02 INFLUENZA VACCINE (#1) [facility] 00:[facility]:00 [code = INFLUENZA Medical Ce nter VACCINE (#1)] Future Scheduled 2022-04-01 HEPATITIS B VACCINES [facility] 00:22:01 (1 of 3 - 3-dose Hospital series) [code = HEPATITIS B VACCINES (1 of 3 - 3-dose series)] Future Scheduled 2022-04-01 COVID-19 VACCINE (#1) [facility] 00:22:01 [code = COVID-19 Hospital VACCINE (#1)] Future Scheduled 2022-04-01 Screening for [facility] Test 00:22:01 malignant neoplasm of Hospit al cervix (procedure) [code = 369541334] Future Scheduled 2022-04-01 BREAST CANCER [facility] Test 00:22:01 SCREENING [code = Hospital BREAST CANCER SCREENING] Future Scheduled 2022-04-01 COLONOSCOPY SCREENING [facility] 00:22:01 [code = COLONOSCOPY Hospital SCREENING] Future Scheduled 2022-04-01 SHINGLES VACCINES (1 [facility] 00:22:01 of 2) [code = SHINGLES Hospi merced VACCINES (1 of 2)] Future Scheduled 2022-04-01 65+ PNEUMOCOCCAL [facility] Test 00:22:01 VACCINE (1 - PCV) Hospital [code = 65+ PNEUMOCOCCAL VACCINE (1 - PCV)] Future Scheduled 2022-04-01 INFLUENZA VACCINE Method ist Test 00:22:01 [code = INFLUENZA Hospital VACCINE] Future Scheduled 2022 PNEUMOCOCCAL 65+ YRS [facility] Test 00:00:00 (1 - PCV) [code = Medical Ce nter PNEUMOCOCCAL 65+ YRS (1 - PCV)] Future Scheduled 2022-01-07 Screening for [facility] Test 10:10:08 malignant neoplasm of of Med icine colon (procedure) [code = 159475220] Future Scheduled 2022-01-07 Screening for [facility] Test 10:10:08 malignant neoplasm of of Med icine breast (procedure) [code = 002806184] Future Scheduled 2022-01-07 TETANUS SHOT (ADULT) [employer] Test 10:10:08 [code = TETANUS SHOT of Medi cine (ADULT)] Future Scheduled 2022-01-07 Hepatitis C screening [employer] Test 10:10:08 (procedure) [code = of Medic ine 141410906] Future Scheduled 2022-01-07 Human immunodeficiency [facility] Test 10:10:08 virus screening of Medicine (procedure) [code = 934762391] Future Scheduled 2022-01-07 Screening for [facility]ge Test 10:10:08 malignant neoplasm of of Med icine cervix (procedure) [code = 977101245] Future Scheduled 2022-01-07 ZOSTER VACCINE (1 of [facility] Test 10:10:08 2) [code = ZOSTER of Medicin e VACCINE (1 of 2)] Future Scheduled 2022-01-07 COVID-19 Vaccine (3 - [employer] Test 10:10:08 Booster) [code = of Medicine COVID-19 Vaccine (3 - Booster)] Future Scheduled 2022-01-07 BMI FOLLOW UP PLAN [facility] Test 10:10:08 [code = BMI FOLLOW UP of Med icine PLAN] Future Scheduled 2022-01-07 FLU VACCINE > 6 MONTHS [facility] Test 10:10:08 [code = FLU VACCINE > of Med icine 6 MONTHS] Future Scheduled 2021-11-20 Screening for [facility] Test 21:55:59 malignant neoplasm of of Med icine colon (procedure) [code = 687613697] Future Scheduled 2021-11-20 Screening for [facility] [employer] Test 21:55:59 malignant neoplasm of of Med icine breast (procedure) [code = 958318024] Future Scheduled 2021-11-20 TETANUS SHOT (ADULT) [employer] Test 21:55:59 [code = TETANUS SHOT of Medi cine (ADULT)] Future Scheduled 2021-11-20 Hepatitis C screening [employer] Test 21:55:59 (procedure) [code = of Medic ine 073373663] Future Scheduled 2021-11-20 Human immunodeficiency [employer] Test 21:55:59 virus screening of Medicine (procedure) [code = 273579655] Future Scheduled 2021-11-20 Screening for [facility] Test 21:55:59 malignant neoplasm of of Med icine cervix (procedure) [code = 918112656] Future Scheduled 2021-11-20 ZOSTER VACCINE (1 of [employer] Test 21:55:59 2) [code = ZOSTER of Medicin e VACCINE (1 of 2)] Future Scheduled 2021-11-20 COVID-19 Vaccine (3 - [employer] Test 21:55:59 Booster) [code = of Medicine COVID-19 Vaccine (3 - Booster)] Future Scheduled 2021-11-20 BMI FOLLOW UP PLAN [employer] Test 21:55:59 [code = BMI FOLLOW UP of Med icine PLAN] Future Scheduled 2021-11-20 FLU VACCINE > 6 MONTHS [employer] Test 21:55:59 [code = FLU VACCINE > of Med icine 6 MONTHS] Future Scheduled 2021-10-12 CT ABDOMEN PELVIS W WO Expected: [employer] Test 00:00:00 CONTRAST [code = 10/12/2021 of Medicine 52687-6] (Approximate), Expires: 11/12/2021 Future Scheduled 2021-10-02 Screening for [facility] Test 10:37:57 malignant neoplasm of of Med icine colon (procedure) [code = 734132426] Future Scheduled 2021-10-02 Screening for [facility] Test 10:37:57 malignant neoplasm of of Med icine breast (procedure) [code = 518723929] Future Scheduled 2021-10-02 TETANUS SHOT (ADULT) [employer] Test 10:37:57 [code = TETANUS SHOT of Medi cine (ADULT)] Future Scheduled 2021-10-02 Hepatitis C screening [employer] Test 10:37:57 (procedure) [code = of Medic ine 214799300] Future Scheduled 2021-10-02 Human immunodeficiency [employer] Test 10:37:57 virus screening of Medicine (procedure) [code = 345755035] Future Scheduled 2021-10-02 Screening for [facility] Test 10:37:57 malignant neoplasm of of Med icine cervix (procedure) [code = 733314361] Future Scheduled 2021-10-02 ZOSTER VACCINE (1 of [employer] Test 10:37:57 2) [code = ZOSTER of Medicin e VACCINE (1 of 2)] Future Scheduled 2021-10-02 COVID-19 Vaccine (3 - [employer] Test 10:37:57 Booster) [code = of Medicine COVID-19 Vaccine (3 - Booster)] Future Scheduled 2021-10-02 BMI FOLLOW UP PLAN [employer] Test 10:37:57 [code = BMI FOLLOW UP of Med icine PLAN] Future Scheduled 2021-09-16 Screening for [facility] Test 09:55:54 malignant neoplasm of of Med icine colon (procedure) [code = 680412689] Future Scheduled 2021-09-16 Screening for [facility] [employer] Test 09:55:54 malignant neoplasm of of Med icine breast (procedure) [code = 677270782] Future Scheduled 2021-09-16 TETANUS SHOT (ADULT) [employer] Test 09:55:54 [code = TETANUS SHOT of Medi cine (ADULT)] Future Scheduled 2021-09-16 Hepatitis C screening [employer] Test 09:55:54 (procedure) [code = of Medic ine 237784309] Future Scheduled 2021-09-16 Human immunodeficiency [employer] Test 09:55:54 virus screening of Medicine (procedure) [code = 981345234] Future Scheduled 2021-09-16 Screening for [facility] [employer] Test 09:55:54 malignant neoplasm of of Med icine cervix (procedure) [code = 236944704] Future Scheduled 2021-09-16 ZOSTER VACCINE (1 of [employer] Test 09:55:54 2) [code = ZOSTER of Medicin e VACCINE (1 of 2)] Future Scheduled 2021-09-16 COVID-19 Vaccine (3 - [employer] Test 09:55:54 Booster) [code = of Medicine COVID-19 Vaccine (3 - Booster)] Future Scheduled 2021-09-16 BMI FOLLOW UP PLAN [employer] Test 09:55:54 [code = BMI FOLLOW UP of Med icine PLAN] Future Scheduled 2021-08-14 Screening for [facility] [employer] Test 21:17:24 malignant neoplasm of of Med icine colon (procedure) [code = 175501538] Future Scheduled 2021-08-14 Screening for [facility] Test 21:17:24 malignant neoplasm of of Med icine breast (procedure) [code = 407745936] Future Scheduled 2021-08-14 TETANUS SHOT (ADULT) [employer] Test 21:17:24 [code = TETANUS SHOT of Medi cine (ADULT)] Future Scheduled 2021-08-14 Hepatitis C screening [employer] Test 21:17:24 (procedure) [code = of Medic ine 314229885] Future Scheduled 2021-08-14 [facility] immunodeficiency [facility] Test 21:17:24 virus screening of Medicine (procedure) [code = 252582919] Future Scheduled 2021-08-14 Screening for [facility] [employer] Test 21:17:24 malignant neoplasm of of Med icine cervix (procedure) [code = 108876079] Future Scheduled 2021-08-14 ZOSTER VACCINE (1 of [employer] Test 21:17:24 2) [code = ZOSTER of Medicin e VACCINE (1 of 2)] Future Scheduled 2021-08-14 COVID-19 Vaccine (3 - [employer] Test 21:17:24 Booster) [code = of Medicine COVID-19 Vaccine (3 - Booster)] Future Scheduled 2021-08-14 BMI FOLLOW UP PLAN [employer] Test 21:17:24 [code = BMI FOLLOW UP of Med icine PLAN] Future Scheduled 2021-08-[address] [facility] Test 00:00:00 (12+) [code = Medical Center DEPRESSION SCREENING (12+)] Future Scheduled 2021-08-02 FALLS RISK SCREENING [facility] Test 00:00:00 [code = FALLS RISK Medical C enter SCREENING] Future Scheduled 2021-07-30 Screening for [facility] Test 08:09:31 malignant neoplasm of of Med icine colon (procedure) [code = 091686408] Future Scheduled 2021-07-30 Screening for [facility] Test 08:09:31 malignant neoplasm of of Med icine breast (procedure) [code = 429711564] Future Scheduled 2021-07-30 TETANUS SHOT (ADULT) [facility] Test 08:09:31 [code = TETANUS SHOT of Medi cine (ADULT)] Future Scheduled 2021-07-30 Hepatitis C screening [facility] Test 08:09:31 (procedure) [code = of Medic ine 090797782] Future Scheduled 2021-07-30 Human immunodeficiency [facility] Test 08:09:31 virus screening of Medicine (procedure) [code = 059329302] Future Scheduled 2021-07-30 Screening for [facility]ge Test 08:09:31 malignant neoplasm of of Med icine cervix (procedure) [code = 878560650] Future Scheduled 2021-07-30 ZOSTER VACCINE (1 of [facility] Test 08:09:31 2) [code = ZOSTER of Medicin e VACCINE (1 of 2)] Future Scheduled 2021-07-30 COVID-19 Vaccine (3 - [facility] Test 08:09:31 Booster) [code = of Medicine COVID-19 Vaccine (3 - Booster)] Future Scheduled 2021-07-30 BMI FOLLOW UP PLAN [facility] Test 08:09:31 [code = BMI FOLLOW UP of Med icine PLAN] Future Scheduled 2021-04-02 INFLUENZA VACCINE (#1[facility] 00:00:00 [code = INFLUENZA Medical Ce nter VACCINE (#1)] Future Scheduled 2021-02-04 Screening for [facility] [employer] Test 07:44:19 malignant neoplasm of of Med icine colon (procedure) [code = 987883962] Future Scheduled 2021-02-04 Screening for [facility] [employer] Test 07:44:19 malignant neoplasm of of Med icine breast (procedure) [code = 272195433] Future Scheduled 2021-02-04 COVID-19 Vaccine (1) [facility] Test 07:44:19 [code = COVID-19 of Medicine Vaccine (1)] Future Scheduled 2021-02-04 TETANUS SHOT (ADULT) [facility] Test 07:44:19 [code = TETANUS SHOT of Medi cine (ADULT)] Future Scheduled 2021-02-04 Hepatitis C screening [facility] Test 07:44:19 (procedure) [code = of Medic ine 095958106] Future Scheduled 2021-02-04 Human immunodeficiency [facility] Test 07:44:19 virus screening of Medicine (procedure) [code = 706240554] Future Scheduled 2021-02-04 Screening for [facility] Col [facility]ge Test 07:44:19 malignant neoplasm of of Med icine cervix (procedure) [code = 426100389] Future Scheduled 2021-02-04 ZOSTER VACCINE (1 of [facility] Test 07:44:19 2) [code = ZOSTER of Medicin e VACCINE (1 of 2)] Future Scheduled 2021-02-04 FLU VACCINE > 6 MONTHS [facility] Test 07:44:19 [code = FLU VACCINE > of Med icine 6 MONTHS] Future Scheduled 2021-02-04 BMI FOLLOW UP PLAN [facility] Test 07:44:19 [code = BMI FOLLOW UP of Med icine PLAN] Diagnostic Test 2020-08-28 CT ABDOMEN W WO Expected: [facility] [employer] Pending 00:00:00 CONTRAST [code = 08/28/2020, of Medicine 82039-7] Expires: 03/21/2021 Future Scheduled 2020-08-[address] [facility] Test 00:00:00 (12+) [code = [facility] DEPRESSION SCREENING (12+)] Future Scheduled 2007 SHINGLES VACCINES ([address] [facility] Test 00:00:00 of 2) [code = SHINGLES Medic al Center VACCINES (1 of 2)] Future Scheduled 2007 SHINGLES VACCINES ([address] [facility] Test 00:00:00 of 2) [code = SHINGLES Medic al Center VACCINES (1 of 2)] Future Scheduled [address] [facility] Test 00:[facility]:00 (procedure) [code = [facility] 26576840] Future Scheduled [address] [facility] Test 00:00:00 (procedure) [code = [facility] 31257987] Future Scheduled [address] [facility] Test 00:00:00 malignant neoplasm of Medica [facility] cervix (procedure) [code = 049139770] Future Scheduled [address] [facility] Test 00:00:00 [facility] cervix (procedure) [code = 527605705] Future Scheduled 1976-02-02 DTAP/TDAP/TD [facility]ACCINES [facility] 00:00:00 (1 - Tdap) [code = Medical C enter DTAP/TDAP/TD VACCINES (1 - Tdap)] Future Scheduled 1976-02-02 DTAP/TDAP/TD VACCINES [facility] Test 00:00:00 (1 - Tdap) [code = Medical C enter DTAP/TDAP/TD VACCINES (1 - Tdap)] Future Scheduled 1975 HEPATITIS C [facility]CRE[facility]ING [facility] 00:00:00 [code = HEPATITIS C Medical Center SCREENING] Future Scheduled 1975 HEPATITIS C [facility]CRE[facility]ING [facility] 00:00:00 [code = HEPATITIS C Medical Center SCREENING] Future Scheduled 1969 COVID-19 VACCINE (1) [facility] Test 00:00:00 [code = COVID-[address] VACCINE (1)] Future Scheduled 1957 COVID-19 VACCINE (#1) [facility] 00:00:00 [code = COVID-[address] VACCINE (#1)] Future Scheduled [address] [facility] Test 00:00:00 malignant neoplasm of [facility] breast (procedure) [code = 773276451] Future Scheduled [address] [facility] Test 00:00:00 (combo) [code = CT Medical C enter Colonography (combo)] Future Scheduled [address] [facility] Test 00:00:00 malignant neoplasm of Medica l Center colon (procedure) [code = 960945659] Future Scheduled [address] [facility] Test 00:00:00 [facility] (procedure) [code = 275948574] Future Scheduled 1957 DXA SCAN [code = DXA [facility] Test 00:00:00 SCAN] Medical Center Future Scheduled [address] [facility] Test 00:00:00 [facility] (procedure) [code = 567269627] Future Scheduled [address] [facility] Test 00:00:00 malignant neoplasm of Medica l Center colon (procedure) [code = 363051500] Future Scheduled 1957 Sigmoidoscopy [code [facility] Sigmoidoscopy] Medical Cente r Future Scheduled [address] [facility] Test 00:00:00 [facility] of [facility] breast (procedure) [code = 532180117] Future Scheduled [address] [facility] Test 00:00:00 [facility] colon (procedure) [code = 962178887] Future Scheduled COLON CANCER [facility] [employer] Test SCREENING: COLONOSCOPY of dicine [code = COLON CANCER SCREENING: COLONOSCOPY] Future Scheduled MAMMOGRAM ANNUAL [code [employer] Test = MAMMOGRAM ANNUAL] of Medic ine Future Scheduled TETANUS SHOT (ADULT) [employer] Test [code = TETANUS SHOT of Medi cine (ADULT)] Future Scheduled HEPATITIS C SCREENING [employer] Test [code = HEPATITIS C of Medic ine SCREENING] Future Scheduled HIV SCREENING [code = [employer] [facility] HIV SCREENING] of Medicine Future Scheduled CERVICAL CANCER [facility] C ollege Test SCREENING 3 YEAR of Medicine FOLLOW UP [code = CERVICAL CANCER SCREENING 3 YEAR FOLLOW UP] Future Scheduled FLU VACCINE > 6 MONTHS [employer] Test [code = FLU VACCINE > of Med icine 6 MONTHS] Future Scheduled COLON CANCER [facility] [employer] Test SCREENING: COLONOSCOPY of Me dicine [code = COLON CANCER SCREENING: COLONOSCOPY] Future Scheduled MAMMOGRAM ANNUAL [code [employer] Test = MAMMOGRAM ANNUAL] of Medic ine Future Scheduled TETANUS SHOT (ADULT) [employer] Test [code = TETANUS SHOT of Medi cine (ADULT)] Future Scheduled HEPATITIS C SCREENING [employer] Test [code = HEPATITIS C of Medic ine SCREENING] Future Scheduled HIV SCREENING [code = [employer] [facility] HIV SCREENING] of Medicine Future Scheduled CERVICAL CANCER [facility] Test SCREENING 3 YEAR of Medicine FOLLOW UP [code = CERVICAL CANCER SCREENING 3 YEAR FOLLOW UP] Future Scheduled FLU VACCINE > 6 MONTHS [employer] Test [code = FLU VACCINE > of Med icine 6 MONTHS] Future Scheduled COLON CANCER [facility] [employer] Test SCREENING: COLONOSCOPY of Me young [code = COLON CANCER SCREENING: COLONOSCOPY] Future Scheduled MAMMOGRAM ANNUAL [code [employer] [facility] = MAMMOGRAM ANNUAL] of Medic ine Future Scheduled TETANUS SHOT (ADULT) [employer] Test [code = TETANUS SHOT of Medi cine (ADULT)] Future Scheduled HEPATITIS C SCREENING [employer] Test [code = HEPATITIS C of Medic ine SCREENING] Future Scheduled HIV SCREENING [code = [employer] [facility] HIV SCREENING] of Medicine Future Scheduled CERVICAL CANCER [facility] C ollege Test SCREENING 3 YEAR of Medicine FOLLOW UP [code = CERVICAL CANCER SCREENING 3 YEAR FOLLOW UP] Future Scheduled FLU VACCINE > 6 MONTHS [employer] [facility] [code = FLU VACCINE > of Med icine 6 MONTHS] Future Scheduled COLON CANCER [facility] [employer] Test SCREENING: COLONOSCOPY of Me young [code = COLON CANCER SCREENING: COLONOSCOPY] Future Scheduled MAMMOGRAM ANNUAL [code [employer] = MAMMOGRAM ANNUAL] of Medic ine Future Scheduled TETANUS SHOT (ADULT) [employer] Test [code = TETANUS SHOT of Medi cine (ADULT)] Future Scheduled HEPATITIS C SCREENING [employer] Test [code = HEPATITIS C of Medic ine SCREENING] Future Scheduled HIV SCREENING [code = [employer] HIV SCREENING] of Medicine Future Scheduled CERVICAL CANCER [facility] C [employer]lege Test SCREENING 3 YEAR of Medicine FOLLOW UP [code = CERVICAL CANCER SCREENING 3 YEAR FOLLOW UP] Future Scheduled ZOSTER VACCINE (1 of [employer] Test 2) [code = ZOSTER of Medicin e VACCINE (1 of 2)] Future Scheduled FLU VACCINE > 6 MONTHS [employer] Test [code = FLU VACCINE > of Med icine 6 MONTHS] Future Scheduled COLON CANCER [facility] [employer] Test SCREENING: COLONOSCOPY of Me young [code = COLON CANCER SCREENING: COLONOSCOPY] Future Scheduled MAMMOGRAM ANNUAL [code [employer] = MAMMOGRAM ANNUAL] of Medic ine Future Scheduled TETANUS SHOT (ADULT) [employer] Test [code = TETANUS SHOT of Medi cine (ADULT)] Future Scheduled HEPATITIS C SCREENING [employer] Test [code = HEPATITIS C of Medic ine SCREENING] Future Scheduled HIV SCREENING [code = [employer] HIV SCREENING] of Medicine Future Scheduled CERVICAL CANCER [facility] [employer]lege Test SCREENING 3 YEAR of Medicine FOLLOW UP [code = CERVICAL CANCER SCREENING 3 YEAR FOLLOW UP] Future Scheduled ZOSTER VACCINE (1 of [employer] Test 2) [code = ZOSTER of Medicin e VACCINE (1 of 2)] Future Scheduled FLU VACCINE > 6 MONTHS [employer] Test [code = FLU VACCINE > of Med icine 6 MONTHS] Future Scheduled COLON CANCER [facility] [employer] Test SCREENING: COLONOSCOPY of Me dicine [code = COLON CANCER SCREENING: COLONOSCOPY] Future Scheduled MAMMOGRAM ANNUAL [code [employer] = MAMMOGRAM ANNUAL] of Medic ine Future Scheduled TETANUS SHOT (ADULT) [employer] Test [code = TETANUS SHOT of Medi cine (ADULT)] Future Scheduled HEPATITIS C SCREENING [employer] Test [code = HEPATITIS C of Medic ine SCREENING] Future Scheduled HIV SCREENING [code = [employer] HIV SCREENING] of Medicine Future Scheduled CERVICAL CANCER [facility] C [employer]lege Test SCREENING 3 YEAR of Medicine FOLLOW UP [code = CERVICAL CANCER SCREENING 3 YEAR FOLLOW UP] Future Scheduled ZOSTER VACCINE (1 of [employer] Test 2) [code = ZOSTER of Medicin e VACCINE (1 of 2)] Future Scheduled COLON CANCER [facility] [employer] Test SCREENING: COLONOSCOPY of Me dicine [code = COLON CANCER SCREENING: COLONOSCOPY] Future Scheduled FLU VACCINE > 6 MONTHS [employer] Test [code = FLU VACCINE > of Med icine 6 MONTHS] Future Scheduled MAMMOGRAM ANNUAL [code [employer] = MAMMOGRAM ANNUAL] of Medic ine Future Scheduled TETANUS SHOT (ADULT) [employer] Test [code = TETANUS SHOT of Medi cine (ADULT)] Future Scheduled HEPATITIS C SCREENING [employer] Test [code = HEPATITIS C of Medic ine SCREENING] Future Scheduled COLON CANCER [facility] [employer] Test SCREENING: COLONOSCOPY of Me dicine [code = COLON CANCER SCREENING: COLONOSCOPY] Future Scheduled MAMMOGRAM ANNUAL [code [employer] = MAMMOGRAM ANNUAL] of Medic ine Future Scheduled TETANUS SHOT (ADULT) [employer] Test [code = TETANUS SHOT of Medi cine (ADULT)] Future Scheduled HEPATITIS C SCREENING [employer] Test [code = HEPATITIS C of Medic ine SCREENING] Future Scheduled HIV SCREENING [code = [employer] HIV SCREENING] of Medicine Future Scheduled CERVICAL CANCER [facility] [employer] Test SCREENING 3 YEAR of Medicine FOLLOW UP [code = CERVICAL CANCER SCREENING 3 YEAR FOLLOW UP] Future Scheduled ZOSTER VACCINE (1 of [employer] Test 2) [code = ZOSTER of Medicin e VACCINE (1 of 2)] Future Scheduled FLU VACCINE > 6 MONTHS [employer] Test [code = FLU VACCINE > of Med icine 6 MONTHS] Future Scheduled HIV SCREENING [code = [employer] HIV SCREENING] of Medicine Future Scheduled CERVICAL CANCER [facility] [employer] Test SCREENING 3 YEAR of Medicine FOLLOW UP [code = CERVICAL CANCER SCREENING 3 YEAR FOLLOW UP] Future Scheduled FLU VACCINE > 6 MONTHS [employer] Test [code = FLU VACCINE > of Med icine 6 MONTHS] Future Scheduled COLON CANCER [facility] [employer] Test SCREENING: COLONOSCOPY of Me dicine [code = COLON CANCER SCREENING: COLONOSCOPY] Future Scheduled MAMMOGRAM ANNUAL [code [employer] = MAMMOGRAM ANNUAL] of Medic ine Future Scheduled TETANUS SHOT (ADULT) [employer] Test [code = TETANUS SHOT of Medi cine (ADULT)] Future Scheduled HEPATITIS C SCREENING [employer] Test [code = HEPATITIS C of Medic ine SCREENING] Future Scheduled HIV SCREENING [code = [employer] HIV SCREENING] of Medicine Future Scheduled CERVICAL CANCER [facility] C [employer]lege Test SCREENING 3 YEAR of Medicine FOLLOW UP [code = CERVICAL CANCER SCREENING 3 YEAR FOLLOW UP] Future Scheduled ZOSTER VACCINE (1 of [employer] Test 2) [code = ZOSTER of Medicin e VACCINE (1 of 2)] Future Scheduled FLU VACCINE > 6 MONTHS [employer] Test [code = FLU VACCINE > of Med icine 6 MONTHS] Future Scheduled COLON CANCER [facility] [employer] Test SCREENING: COLONOSCOPY of Me dicine [code = COLON CANCER SCREENING: COLONOSCOPY] Future Scheduled MAMMOGRAM ANNUAL [code [employer] = MAMMOGRAM ANNUAL] of Medic ine Future Scheduled TETANUS SHOT (ADULT) [employer] Test [code = TETANUS SHOT of Medi cine (ADULT)] Future Scheduled HEPATITIS C SCREENING [employer] Test [code = HEPATITIS C of Medic ine SCREENING] Future Scheduled HIV SCREENING [code = [employer] HIV SCREENING] of Medicine Future Scheduled CERVICAL CANCER [facility] C [employer]lege Test SCREENING 3 YEAR of Medicine FOLLOW UP [code = CERVICAL CANCER SCREENING 3 YEAR FOLLOW UP] Future Scheduled ZOSTER VACCINE (1 of [employer] Test 2) [code = ZOSTER of Medicin e VACCINE (1 of 2)] Future Scheduled FLU VACCINE > 6 MONTHS [employer] Test [code = FLU VACCINE > of Med icine 6 MONTHS] Future Scheduled CATECHOLAMINES, Ordered: [facility] [employer] Test FRACTIONATED, PLASMA 08/21/2020 of Medi cine [code = 28829] Future Scheduled METANEPHRINE,FRACT,LC/ Ordered: [employer] MS/MS,PL [code = 08/21/2020 of Medicine NOCPT] Future Scheduled COLON CANCER [facility] [employer] Test SCREENING: COLONOSCOPY of Me young [code = COLON CANCER SCREENING: COLONOSCOPY] Future Scheduled COVID-19 Vaccine [employer] Test Evaluation [code = of Medici ne COVID-19 Vaccine Evaluation] Future Scheduled MAMMOGRAM ANNUAL [code [employer] = MAMMOGRAM ANNUAL] of Medic ine Future Scheduled TETANUS SHOT (ADULT) [employer] Test [code = TETANUS SHOT of Medi cine (ADULT)] Future Scheduled HEPATITIS C SCREENING [employer] Test [code = HEPATITIS C of Medic ine SCREENING] Future Scheduled HIV SCREENING [code = [employer] HIV SCREENING] of Medicine Future Scheduled CERVICAL CANCER [facility] C [employer]lege Test SCREENING 3 YEAR of Medicine FOLLOW UP [code = CERVICAL CANCER SCREENING 3 YEAR FOLLOW UP] Future Scheduled ZOSTER VACCINE (1 of [employer] Test 2) [code = ZOSTER of Medicin e VACCINE (1 of 2)] Future Scheduled FLU VACCINE > 6 MONTHS [employer] Test [code = FLU VACCINE > of Med icine 6 MONTHS] Future Scheduled BMI FOLLOW UP PLAN [employer] Test [code = BMI FOLLOW UP of Med icine PLAN] Future Scheduled COLON CANCER [facility] [employer] Test SCREENING: COLONOSCOPY of Me young [code = COLON CANCER SCREENING: COLONOSCOPY] Future Scheduled COVID-19 Vaccine [facility] [employer] Test Evaluation [code = of Medici ne COVID-19 Vaccine Evaluation] Future Scheduled MAMMOGRAM ANNUAL [code [employer] = MAMMOGRAM ANNUAL] of Medic ine Future Scheduled TETANUS SHOT (ADULT) [employer] Test [code = TETANUS SHOT of Medi cine (ADULT)] Future Scheduled HEPATITIS C SCREENING [employer] Test [code = HEPATITIS C of Medic ine SCREENING] Future Scheduled HIV SCREENING [code = [employer] HIV SCREENING] of Medicine Future Scheduled CERVICAL CANCER [facility] [employer] Test SCREENING 3 YEAR of Medicine FOLLOW UP [code = CERVICAL CANCER SCREENING 3 YEAR FOLLOW UP] Future Scheduled ZOSTER VACCINE (1 of [employer] Test 2) [code = ZOSTER of Medicin e VACCINE (1 of 2)] Future Scheduled FLU VACCINE > 6 MONTHS [employer] Test [code = FLU VACCINE > of Med icine 6 MONTHS] Future Scheduled BMI FOLLOW UP PLAN [employer] Test [code = BMI FOLLOW UP of Med icine PLAN] Future Scheduled Screening for [facility] Col lege Test malignant neoplasm of of Med icine colon (procedure) [code = [id number]] Future Scheduled Screening for [employer] Test malignant neoplasm of of Med icine breast (procedure) [code = 994584198] Future Scheduled TETANUS SHOT (ADULT) [employer] Test [code = TETANUS SHOT of Medi cine (ADULT)] Future Scheduled COVID-19 Vaccine (1) [employer] Test [code = COVID-19 of Medicine Vaccine (1)] Future Scheduled Hepatitis C screening [employer] Test (procedure) [code = of Medic ine 764219296] Future Scheduled Human immunodeficiency [employer] Test virus screening of Medicine (procedure) [code = 373572408] Future Scheduled Screening for [employer] Test malignant neoplasm of of Med icine cervix (procedure) [code = 663293365] Future Scheduled ZOSTER VACCINE (1 of [employer] Test 2) [code = ZOSTER of Medicin e VACCINE (1 of 2)] Future Scheduled FLU VACCINE > 6 MONTHS [employer] Test [code = FLU VACCINE > of Med icine 6 MONTHS] Future Scheduled BMI FOLLOW UP PLAN [employer] Test [code = BMI FOLLOW UP of Med icine PLAN] Future Scheduled Screening for [employer] Test malignant neoplasm of of Med icine colon (procedure) [code = 699055816] Future Scheduled Screening for [facility] Col lege Test malignant neoplasm of of Med icine breast (procedure) [code = 250954944] Future Scheduled TETANUS SHOT (ADULT) [employer] Test [code = TETANUS SHOT of Medi cine (ADULT)] Future Scheduled COVID-19 Vaccine (1) [employer] Test [code = COVID-19 of Medicine Vaccine (1)] Future Scheduled Hepatitis C screening [employer] Test (procedure) [code = of Medic ine [id number]] Future Scheduled Human immunodeficiency [employer] Test virus screening of Medicine (procedure) [code = 217803183] Future Scheduled Screening for [facility] Col lege Test malignant neoplasm of of Med icine cervix (procedure) [code = 790797943] Future Scheduled ZOSTER VACCINE (1 of [employer] Test 2) [code = ZOSTER of Medicin e VACCINE (1 of 2)] Future Scheduled FLU VACCINE > 6 MONTHS [employer] Test [code = FLU VACCINE > of Med icine 6 MONTHS] Future Scheduled BMI FOLLOW UP PLAN [employer] Test [code = BMI FOLLOW UP of Med icine PLAN] Future Scheduled COLON CANCER [facility] [employer] Test SCREENING: COLONOSCOPY of Me dicine [code = COLON CANCER SCREENING: COLONOSCOPY] Future Scheduled MAMMOGRAM ANNUAL [code [employer] = MAMMOGRAM ANNUAL] of Medic ine Future Scheduled TETANUS SHOT (ADULT) [employer] Test [code = TETANUS SHOT of Medi cine (ADULT)] Future Scheduled HEPATITIS C SCREENING [employer] Test [code = HEPATITIS C of Medic ine SCREENING] Future Scheduled HIV SCREENING [code = [employer] HIV SCREENING] of Medicine Future Scheduled CERVICAL CANCER [facility] C [employer]lege Test SCREENING 3 YEAR of Medicine FOLLOW UP [code = CERVICAL CANCER SCREENING 3 YEAR FOLLOW UP] Future Scheduled COLON CANCER [facility] [employer] Test SCREENING: COLONOSCOPY of Me dicine [code = COLON CANCER SCREENING: COLONOSCOPY] Future Scheduled MAMMOGRAM ANNUAL [code [employer] = MAMMOGRAM ANNUAL] of Medic ine Future Scheduled TETANUS SHOT (ADULT) [employer] Test [code = TETANUS SHOT of Medi cine (ADULT)] Future Scheduled HEPATITIS C SCREENING [employer] Test [code = HEPATITIS C of Medic ine SCREENING] Future Scheduled HIV SCREENING [code = [employer] HIV SCREENING] of Medicine Future Scheduled CERVICAL CANCER [facility] C ollege Test SCREENING 3 YEAR of Medicine FOLLOW UP [code = CERVICAL CANCER SCREENING 3 YEAR FOLLOW UP] Future Scheduled COVID-19 VACCINE (1) [facility] [code = COVID-19 Hospital VACCINE (1)] Future Scheduled Screening for [facility] malignant neoplasm of Hospit al cervix (procedure) [code = 685684214] Future Scheduled BREAST CANCER [facility] SCREENING [code = Hospital BREAST CANCER SCREENING] Future Scheduled COLONOSCOPY SCREENING [facility] [code = COLONOSCOPY Hospital SCREENING] Future Scheduled SHINGLES VACCINES (#1) [facility] Test [code = SHINGLES Hospital VACCINES (#1)] Future Scheduled INFLUENZA VACCINE [facility] Test [code = INFLUENZA Hospital VACCINE] Future Scheduled COLON CANCER [facility] [employer] Test SCREENING: COLONOSCOPY of Me dicine [code = COLON CANCER SCREENING: COLONOSCOPY] Future Scheduled MAMMOGRAM ANNUAL [code [employer] [facility] = MAMMOGRAM ANNUAL] of Medic ine Future Scheduled TETANUS SHOT (ADULT) [employer] Test [code = TETANUS SHOT of Medi cine (ADULT)] Future Scheduled HEPATITIS C SCREENING [employer] Test [code = HEPATITIS C of Medic ine SCREENING] Future Scheduled HIV SCREENING [code = [employer] [facility] HIV SCREENING] of Medicine Future Scheduled CERVICAL CANCER [facility] [employer] Test SCREENING 3 YEAR of Medicine FOLLOW UP [code = CERVICAL CANCER SCREENING 3 YEAR FOLLOW UP] Future Scheduled COLON CANCER [facility] [employer] Test SCREENING: COLONOSCOPY of dicine [code = COLON CANCER SCREENING: COLONOSCOPY] Future Scheduled MAMMOGRAM ANNUAL [code [employer] = MAMMOGRAM ANNUAL] of Medic ine Future Scheduled TETANUS SHOT (ADULT) [employer] Test [code = TETANUS SHOT of Medi cine (ADULT)] Future Scheduled HEPATITIS C SCREENING [employer] Test [code = HEPATITIS C of Medic ine SCREENING] Future Scheduled HIV SCREENING [code = [employer] HIV SCREENING] of Medicine Future Scheduled CERVICAL CANCER [employer] Test SCREENING 3 YEAR of Medicine FOLLOW UP [code = CERVICAL CANCER SCREENING 3 YEAR FOLLOW UP] Future Scheduled COLON CANCER [facility] [employer] Test SCREENING: COLONOSCOPY of dicine [code = COLON CANCER SCREENING: COLONOSCOPY] Future Scheduled MAMMOGRAM ANNUAL [code [employer] = MAMMOGRAM ANNUAL] of Medic ine Future Scheduled TETANUS SHOT (ADULT) [employer] Test [code = TETANUS SHOT of Medi cine (ADULT)] Future Scheduled BMI FOLLOW UP PLAN [employer] Test [code = BMI FOLLOW UP of Med icine PLAN] Future Scheduled HEPATITIS C SCREENING [employer] Test [code = HEPATITIS C of Medic ine SCREENING] Future Scheduled HIV SCREENING [code = [employer] HIV SCREENING] of Medicine Future Scheduled CERVICAL CANCER [facility] C ollege Test SCREENING 3 YEAR of Medicine FOLLOW UP [code = CERVICAL CANCER SCREENING 3 YEAR FOLLOW UP] Future Scheduled COLON CANCER [facility] [employer] Test SCREENING: COLONOSCOPY of dicine [code = COLON CANCER SCREENING: COLONOSCOPY] Future Scheduled MAMMOGRAM ANNUAL [code [employer] = MAMMOGRAM ANNUAL] of Medic ine Future Scheduled TETANUS SHOT (ADULT) [employer] Test [code = TETANUS SHOT of Medi cine (ADULT)] Future Scheduled HEPATITIS C SCREENING [employer] Test [code = HEPATITIS C of Medic ine SCREENING] Future Scheduled HIV SCREENING [code = [employer] HIV SCREENING] of Medicine Future Scheduled CERVICAL CANCER [facility] [employer] Test SCREENING 3 YEAR of Medicine FOLLOW UP [code = CERVICAL CANCER SCREENING 3 YEAR FOLLOW UP] Future Scheduled PERCUTANEOUS INTERSTIM 1 Occurrences [facility] [employer] Test TEST BILATERAL [code = starting of Me dicine 79402] 05/23/2020 until 05/23/2021 Encounters Start End Encounter Admission Attending Care Care Encounter Source Date/Time Date/Time Type Type Clinicians Facility Department ID 2021-05-10 Outpatient [facility] Surgery [id number] [facility] 06:36:39 , CARMINE 2021-05-10 Outpatient [facility] Surgery [id number] [facility] 01:19:14 , CARMINE 2021-05-09 Outpatient CASAS, [facility] Surgery [id number] [facility] 18:11:52 NICOLLE 2022-03-12 2022-03-12 Outpatient NIKOLAY [facility] [id number] [facility] 13:20:13 14:34:11 MARISSA acuna of Medicin e 2022-01-21 2022-01-21 Outpatient MARIPOSA [facility] [id number] [facility] 10:53:00 11:06:28 BLANCA acuna of Medicin e 2022-01-01 2022-01-01 Office VEE LINK 1.2.840.114 [id number] [facility] 08:10:59 10:31:50 Visit MARISSA AMBULATOR 350.1.13.21 College Y 0.2.7.2.686 of [id number] Medi isabel 800 e 2021-12-22 2021-12-22 Outpatient ROSEMARY Dacosta ANUSHA [id number] [facility] 08:00:00 08:00:00 Howard 77 [facility] 2021-12-11 2021-12-11 Outpatient LING Stephens [facility] ANUSHA [id number] [facility] 08:00:00 08:00:00 Howard 53 [facility] 2021-11-20 2021-11-20 Office TEDDY Forrest 1.2.840.114 [id number] [facility] 15:15:00 15:30:00 Visit Patricia Edgar AMBULATOR 350.1.13.21 College Y 0.2.7.2.686 of [id number] [facility] isabel 300 e 2021-11-20 2021-11-20 Outpatient [facility] [id number] [facility] 11:30:00 11:30:00 Princess e of Medicin e 2021-10-02 2021-10-02 Office TEDDY MONGEM 1.2.840.114 [id number] [facility] 10:16:48 11:53:18 Visit BLANCA AMBULATOR 350.1.13.21 College Y 0.2.7.2.686 of [id number] Medi isabel 390 e 2021-09-09 2021-09-09 Office JONOTEDDY LEEM 1.2.014.224 [id number] [facility] 08:21:36 12:50:25 Visit MILES AMBULATOR 350.1.13.21 College Y 0.2.7.2.686 of [id number] Medi isabel 810 e 2021-08-14 2021-08-15 Office TEDDY FORRESTM 1.2.840.114 [id number] [facility] 12:47:47 19:54:32 Visit PATRICIA AMBULATOR 350.1.13.21 College Y 0.2.7.2.686 of [id number] Medi isabel 300 e 2021-08-14 2021-08-14 Outpatient BCM [facility] [id number] [facility] 14:48:26 14:48:26 Colleg e of Medicin e 2021-07-31 2021-07-31 Outpatient BCM [facility] [id number] [facility] 08:01:46 11:13:40 Colleg e of Medicin e 2021-07-29 2021-07-29 Office VEE LINK 1.2.840.114 [id number] [facility] 07:44:43 11:32:57 Visit MARISSA AMBULATOR 350.1.13.21 College Y 0.2.7.2.686 of [id number] Medi isabel 800 e 2021-02-04 2021-02-04 Office VEE Link 1.2.840.114 [id number] [facility] 08:31:48 08:51:48 Visit Marissa AMBULATOR 350.1.13.21 College Y 0.2.7.2.686 of [id number] Medi isabel 800 e 2021-02-04 2021-02-04 Office VEE Link 1.2.840.114 [id number] 08:31:48 08:51:48 Visit Marissa AMBULATOR 350.1.13.21 Y 0.2.7.2.686 [id number] 800 2020-11-11 2020-11-11 Office [place] TEDDYMarina 1.2.840.[id number] [place] [address] 09:47:51 16:09:11 Visit Marissa AMBULATOR 350.1.13.21 College Y 0.2.7.2.686 of [id number] [facility] 800 e 2020-11-11 2020-11-11 Office [place] TEDDYMarina 1.2.840.114 [id number] 09:47:51 16:09:11 Visit Marissa AMBULATOR 350.1.13.21 Y 0.2.7.2.686 [id number] 800 2020-11-05 2020-11-05 Office VEE Tuttle 1.2.840.114 [id number] [facility] 15:21:56 16:14:10 Visit Christopher AMBULATOR 350.1.13.21 College Rito Y 0.2.7.2.686 of [id number] [facility] 300 e 2020-11-05 2020-11-05 Office MiguelTEDDY albaMarina 1.2.840.114 [id number] 15:21:56 16:14:10 Visit Christopher AMBULATOR 350.1.13.21 Rito Y 0.2.7.2.686 [id number] 300 2020-10-18 2020-10-18 [id number] [facility] 00:00:00 00:00:00 2020-10-18 2020-10-18 Outpatient [facility] [id number] [facility] 00:00:00 00:00:00 2020-10-17 2020-10-17 Outpatient [facility] [id number] [facility] 00:00:00 00:00:00 2020-09-03 2020-09-03 Outpatient SLE [facility] [id number] [facility] 00:00:00 00:00:00 2020-09-03 2020-09-03 Outpatient EL [facility] [id number] SLE 00:00:00 00:00:00 2020-09-03 2020-09-03 Outpatient [facility] [id number] [facility] 00:00:00 00:00:00 2020-09-03 2020-09-03 Outpatient [facility] [id number] [facility] 00:00:00 00:00:00 2020-09-03 2020-09-03 Outpatient [facility] [id number] [facility] 00:00:00 00:00:00 2020-08-21 2020-08-21 Office Tarakad, BCM 1.2.840.[id number] [place] [address] 10:52:12 15:07:58 Visit Marissa AMBULATOR 350.1.13.21 College Y 0.2.7.2.686 of [id number] [facility] 800 e 2020-08-21 2020-08-21 Office Tarakad, BCM 1.2.840.114 [id number] [facility] 10:52:12 15:07:58 Visit Marissa AMBULATOR 350.1.13.21 Y 0.2.7.2.686 [id number] 800 2020-08-21 2020-08-21 Office Bedrose, BCM 1.2.840.[id number] [place] [address] 09:16:31 11:53:26 Visit Anna Shokry AMBULATOR 350.1.13.21 College Nicola Y 0.2.7.2.686 of [id number] [facility] 310 e 2020-08-21 2020-08-21 Office Bedrose, BCM 1.2.840.114 [id number] [facility] 09:16:31 11:53:26 Visit Anna Shokry AMBULATOR 350.1.13.21 Nicola Y 0.2.7.2.686 [id number] 2020-08-08 2020-08-08 Outpatient [facility] [place] [facility] [id number] [facility] 12:00:00 12:00:00 Pedro [id number] [facility] 2020-07-10 2020-07-10 Outpatient EL SLE SLE [id number] [facility] 00:00:00 00:00:00 2020-07-10 2020-07-10 Outpatient EL [facility] [id number] [facility] 00:00:00 00:00:00 2020-06-21 2020-06-21 Office VEE Tuttle 1.2.840.114 [id number] [facility] 14:06:57 16:16:33 Visit Christopher AMBULATOR 350.1.13.21 College Rito Y 0.2.7.2.686 of [id number] Medi isabel 300 e 2020-06-21 2020-06-21 Office Miguelanjali VEE 1.2.840.114 [id number] 14:06:57 16:16:33 Visit Christopher AMBULATOR 350.1.13.21 Rito Y 0.2.7.2.686 [id number] 300 2020-06-21 2020-06-21 Office AugustoVEE 1.2.840.114 [id number] [facility] 12:31:48 12:41:48 Visit Christopher AMBULATOR 350.1.13.21 College P Y 0.2.7.2.686 of [id number] [facility] isabel 300 e 2020-06-21 2020-06-21 Office Augusto TEDDYMarina 1.2.840.114 [id number] 12:31:48 12:41:48 Visit Christopher AMBULATOR 350.1.13.21 P Y 0.2.7.2.686 [id number] 300 2020-05-23 2020-05-23 Office Augusto TEDDYMarina 1.2.840.114 [id number] [facility] 10:24:43 11:57:55 Visit Christopher AMBULATOR 350.1.13.21 College P Y 0.2.7.2.686 of [id number] Medi isabel 300 e 2020-05-23 2020-05-23 Office VEE Casas 1.2.840.114 [id number] 10:24:43 11:57:55 Visit Christopher AMBULATOR 350.1.13.21 P Y 0.2.7.2.686 [id number] 300 2020-05-22 2020-05-22 Office VEE Link 1.2.840.114 [id number] [facility] 09:52:20 13:31:33 Visit Marissa AMBULATOR 350.1.13.21 College Y 0.2.7.2.686 of [id number] [facility] isabel 800 e 2020-05-22 2020-05-22 Office VEE Link 1.2.840.114 [id number] 196 09:52:20 13:31:33 Visit Marissa AMBULATOR 350.1.13.21 Y 0.2.7.2.686 [id number] 800 2020-05-02 2020-05-02 Office VEE Casas 1.2.840.[id number] [place] [address] 10:25:40 10:35:40 Visit Christopher AMBULATOR 350.1.13.21 College P Y 0.2.7.2.686 of [id number] [facility] 300 e 2020-05-02 2020-05-02 Office VEE Casas 1.2.840.114 [id number] 10:25:40 10:35:40 Visit Christopher AMBULATOR 350.1.13.21 P Y 0.2.7.2.686 [id number] 300 2020-02-21 2020-02-21 Office VEE Link 1.2.840.[id number] [place] [address] 10:55:48 16:32:49 Visit Marissa AMBULATOR 350.1.13.21 College Y 0.2.7.2.686 of [id number] [facility] isabel 800 e 2020-02-21 2020-02-21 Office VEE Link 1.2.840.114 [id number] [facility] 10:55:48 16:32:49 Visit Marissa AMBULATOR 350.1.13.21 Y 0.2.7.2.686 [id number] 800 2020-01-04 2020-01-04 Office VEE Link 1.2.840.114 [id number] 548 [facility] 10:47:05 13:10:50 Visit Marissa AMBULATOR 350.1.13.21 College Y 0.2.7.2.686 of [id number] [facility] isabel 800 e 2020-01-04 2020-01-04 Office VEE Link 1.2.840.114 [id number] 548 10:47:05 13:10:50 Visit Marissa AMBULATOR 350.1.13.21 Y 0.2.7.2.686 [id number] [facility] 2019-11-22 2019-11-22 Office Violetluciad, BCM 1.2.840.114 [id number] [facility] 07:53:06 10:26:01 Visit Marissa AMBULATOR 350.1.13.21 College Y 0.2.7.2.686 of [id number] [facility] 800 e 2019-11-22 2019-11-22 Office Violetpau, BCM 1.2.840.114 [id number] 07 07:53:06 10:26:01 Visit Marissa AMBULATOR 350.1.13.21 Y 0.2.7.2.686 [id number] [facility] 2019-10-04 2019-10-04 Office Violetpau, BCM 1.2.840.114 [id number] 922 [facility] 10:20:28 13:44:29 Visit Marissa AMBULATOR 350.1.13.21 College Y 0.2.7.2.686 of [id number] [facility] 800 e 2019-10-04 2019-10-04 Office Violetpau, BCM 1.2.840.114 [id number] 922 10:20:28 13:44:29 Visit Marissa AMBULATOR 350.1.13.21 Y 0.2.7.2.686 [id number] [facility] 2019-09-20 2019-09-20 Office 1, Neuro Fellow BCM 1.2.840.11 4 [id number] [facility] 09:48:24 13:20:20 Visit 1, Neuro Fellow AMBULATOR 350.1.13.21 College Y 0.2.7.2.686 of [id number] [facility] 800 e 2019-09-20 2019-09-20 Office 1, Neuro BCM 1.2.840.114 [id number] 855 09:48:24 13:20:20 Visit Fellow AMBULATOR 350.1.13.21 Y 0.2.7.2.686 [id number] [facility] 2019-09-13 2019-09-13 Office Violetluciad, BCM 1.2.840.114 [id number] [facility] 09:48:16 13:56:32 Visit Marissa AMBULATOR 350.1.13.21 College Y 0.2.7.2.686 of [id number] [facility] 800 e 2019-09-13 2019-09-13 Office Nikolay, BCM 1.2.840.114 [id number] 738 09:48:16 13:56:32 Visit Marissa AMBULATOR 350.1.13.21 Y 0.2.7.2.686 [id number] [facility] 2019-09-06 2019-09-06 Office Nikolay, BCM 1.2.840.114 [id number] [facility] 09:55:15 11:25:00 Visit Marissa AMBULATOR 350.1.13.21 College Y 0.2.7.2.686 of [id number] [facility] 800 e 2019-09-06 2019-09-06 Office Nikolay, BCM 1.2.840.114 [id number] 09:55:15 11:25:00 Visit Marissa AMBULATOR 350.1.13.21 Y 0.2.7.2.686 [id number] [facility] 2019-08-28 2019-08-28 Office Nikolay, BCM 1.2.840.114 [id number] [facility] 11:18:25 11:33:25 Visit Marissa AMBULATOR 350.1.13.21 College Y 0.2.7.2.686 of [id number] [facility] 800 e 2019-08-28 2019-08-28 Office Faribad, BCM 1.2.840.114 [id number] 061 11:18:25 11:33:25 Visit Marissa AMBULATOR 350.1.13.21 Y 0.2.7.2.686 [id number] [facility] 2019-08-24 2019-08-24 Office Nikolay, BCM 1.2.840.114 [id number] 2 [facility] 09:04:50 09:34:50 Visit Marissa AMBULATOR 350.1.13.21 College Y 0.2.7.2.686 of [id number] [facility] 800 e 2019-08-24 2019-08-24 Office Nikolay, BCM 1.2.840.114 [id number] [facility] 09:04:50 09:34:50 Visit Marissa AMBULATOR 350.1.13.21 Y 0.2.7.2.686 [id number] 800 2019-08-23 2019-08-23 Office Violetpau TEDDYMarina 1.2.840.114 [id number] 336 [facility] 08:16:43 08:46:43 Visit Marissa AMBULATOR 350.1.13.21 College Y 0.2.7.2.686 of [id number] [facility] 800 e 2019-08-23 2019-08-23 Office VEE Link 1.2.840.114 [id number] 08:16:43 08:46:43 Visit Marissa AMBULATOR 350.1.13.21 Y 0.2.7.2.686 [id number] [facility] 2019-06-21 2019-06-21 Outpatient VEE LINK [facility] [id number] [facility] 11:19:00 16:15:35 MARISSA acuna of Medicin e 2019-04-28 2019-04-28 Office VEE LINK 1.2.840.114 [id number] 495 [facility] 14:19:30 15:49:19 Visit MARISSA AMBULATOR 350.1.13.21 College Y 0.2.7.2.686 of [id number] 2019-04-28 2019-04-28 Office TEDDY Link 1.2.840.114 [id number] 495 14:19:30 15:49:19 Visit Marissa AMBULATOR 350.1.13.21 Y 0.2.7.2.686 [id number] 800 2017-10-05 2017-10-05 Outpatient DREW Marina [facility] [id number] [facility] 13:00:57 16:29:34 POOJA acuna of Medicin e Results Test Description Test Time Test Comments Results Result Comments Source POCT URINALYSIS DIPSTICK 2021-11-20 00:00:00 Test Item Value Reference Range Interpretation Comme nts COLOR UA (test code = 5778-6) Yellow YELLOW/STRAW CLARITY UA (test code = 67164-8) Clear CLEAR GLUCOSE UA (test code = 5792-7) Negative NEGATIVE BILIRUBIN UA (test code = 5770-3) Negative NEGATIVE KETONES UA (test code = 49113-7) Positive NEGATIVE SPECIFIC GRAVITY UA (test code = 5811-5) 1.005-1.035 BLOOD UA (test code = 5794-3) Negative NEGATIVE PH UA (test code = 5803-2) 5-9 PROTEIN UA (test code = 5804-0) Trace NEGATIVE UROBILINOGEN UA (test code = 5818-0) 0.02 E.U/DL NORMAL MG/DL LEUKOCYTE ESTERASE UA (test code = 5799-2) Negative NEGATIVE NITRITE UA (test code = 5802-4) Negative NEGATIVE REDUCING SUBSTANCES URINE (test code = 52741-8) [id number] 09:20:00 Test Item Value Reference Range Interpretation Comments Case Report (test code Surgical Pathology = 104) Report Case: [id number] Authorizing Provider: Carmine Jean MD Collected: 10/22/2020 09:14 AM Ordering Location: [facility] Received: 10/22/2020 09:33 AM SERVICES Pathologist: Nakul Mccabe MD Specimen: Other, DBS BATTERY EXPLANT DIAGNOSIS (test code = v4akcMTaLXYai9wdBQPmaAV 3220) uZzEwMzNcZnRuYmpcdWMxIH tccnRmMVxlcGljOTIwMlxhb oMhXLPovUNvO6NjcelgOLmc PR1jWV3phQkixOLcgYJyFZN jLhHch6kyl981uHStf2dnDW DHxsyqjDh7hGitO84cw2W0Y tgxY42wmKRzHTshwTWfiadx czIwIElNUExBTlRBVElPTiw jIKJYY0FrJ4FGIWAHUV7JLF WUADMyXeTXYN7wQ4EOZKWVX VRPUiBTVEFHRSBJSTpcbGlu ZSAgICAgLSBERUVQIEJSQUl FFPGDIG6HCMLUX6GtWaTAMW VSWSBJREVOVElGSUVEIChHU f6UXuRJHgbJFFfpONC1f0gb dGYxXHNzdGUxODAwMFxhbnN eKKKqGzhqcrlzWNTeYTU5tz NzZWGzOYbqPSVgHXulFj0zr SNscWndTeYwXICxc5tamqUP wciesZk7i1hkYCGhWxF3vDK nGIbqO9vdxpHjuQQrTAAvSY x6uE67XIOexQ1efRByUNuww dGoMpC9QBmzXZVpShV2IKKg mEXsXUUeK0qpTTAtUZubVPR aEMgpiBLrHJT7vDylv9T6cH VzaGVldHtcZjBcZnMyMiBOb 2TdKSh3aZteM3DgBHIxNbV9 bHQgUGFyYWdyYXBoIEZvbnQ 3cI00ZIfvadI0gALyk0Pzq6 8dq089hV8mdPWcTHU6UFReQ MZpoCHiKEQtGWG7WGJatPWx U9pgNZNvCG9obirgEYwiQEh fEIZizLK0YQUjpDDfK2VjAG UgBSqxHAPbqjs5CtHpVm9zt MEenBenCVqdb2gec3cmkGLz Gla7UDZxRlWtFgzsUQqrx0D ud7rhCPJfur5wPVQ3hDMruZ qev1T2yUSnDAZvyCApEXCaU Y0pzQAlFVTztJ3gcfmcWGHi YnJkcmhlYWRccGdicmRyZm9 bpFmdSUA4OYuyV5ujvC7yHi W9PDgdY2cysU8hEUq8BSshW GFyaFB3ewK1CSQxgXPhN8Sc vH6uSSJeFF3dttw6s9ztMUA 6HBnfHLPnSaB9tuM0KDUomN AePXCmtQslYHjnd997HSL8E aTwYPSas2WpO9MniPptF88i eQucP31eEMLnxSnwsI0tsWb pfS0fSdIyHiHjYPkpmOswBK 4eDETkY7womAHrNLFwEJBsY 0ztIxEizF5ulBikYDecltUt YILvFyc0GUXbvIVyYUMyRay 1YSSjOSIpJ77wtkrjIAR8eM 3hh3oql1XcQZhbCKE0IHKop 06jDAitljG8GNzaGq8aTKMh Wgd4HisgBEC9dM== CPT Code(s) (test code x8fbgRAzGMEavAZ0YuHlSLV = 3357) jz3yav9OblYSzmVCgLYojrU ZwrwQihg73nGJ2hR34ET4pX JYiBiN0DVIaqsV6Bck8XTUt OGQxhWWnU562j9kyl1vnfpI oyRU5rQbnMEXoDLFgLCtgIW ZzMjAgODgzMDBccGFyfQ== CLINICAL HISTORY (test o4mzpRPuLFZvwSM7SpZxGAA code = 3356) qc4alg7YowRStrQQxGKqspK NdjaNwbo53aWA3nN23IU7gH ZBzRiM3HQDgcxO7Qcz1YSBu KYXwhWBpK573x2fae1nupxT btGC9wBoaXAWvOPZwAKofKI XwLhAvHRSlj2knq31zZOKba 6Mjw9JyUMSead6= SPECIMEN SOURCE (test r5vjdEGySSKofSV6BuEmJNH code = 3377) zd6dyb4SabPIqoCIhRTrhfK NgghZvas31wWZ1zE26XP5eT SSjGuE9PYRqdsO6Dmw8SHXg EMQroQGqS773f5bon2scjeJ imQM8aPsoGWUdSZNxSBwjLD ZzMjAgRXhwbGFudFxwYXJ9 GROSS DESCRIPTION r7jovYDzOKIvdJYtIoPzEXJ (test code = 3366) tSIYku7jvKYJwyEEqOnMlXh NcZnRuYmpcdWMxXGRlZmYwe 8rsh973uVDuq3ttNUYjNwY2 jDIdRMSzuFOsU109v0ewt9u rpoYdhJU8PKFxRDI1CWiglx FaieJ9QBpyzRNjZgT1GDahd tIpJNsklsAxskEaOpi6EMNj C545XMU9yEgcg0pyPOV2IJZ dZTPyRwJiVc4hwECaB150GQ FeSIUZOCPoaWh5VJPbgrBmo oLxbTWFb260A383c5tnGEBl cdYzfZfIvjvbo9qkM951IJH hcGVydzEyMjQwXHBhcGVyaD Y4TMNrOZ2sceurPbNhBJ3qh mwyLgZdCJ3lvhy9AoZdPU5z cmdiNzIwXGhlYWRlcnkwXGZ qv3PqvpkiSG8uL1Ufn9Z2sI 9maXRcZGVmdGFiNzIwXGZvc u5rrOZfDVkoz5FtUPP3bdR6 rRMbzGViRQYxWE29Ppfhj6D vZvtnZOI8DEDnknKzl9Kxg7 wmEwIxmlYgQ0xeS2LiKLKrQ BWlTBFpMwLdtgIru8Mdx8Ha bAJnfEz0a1gfPQLeMSGsaHq yc9lwRDK4OMByC7L3eOYzs3 dtFLwpODHetHR0zecfUJalL AExqdW9trusMCfsKVFatFC3 pqpkEAheZGFqKfI5zqcxXQk fOSThWMX1CFrzk523HNG8OO xzYmtwYWdlXHBnbmNvbnRcc GduZGVjXHBsYWluXHBsYWlu XGYwXGZzMjRccWxccGxhaW5 oFuJkLyHuDOahCK9pWUYcO1 hzsCXrMOPqJCQlV4zpLoIzw A8xdApgEBsteeAeRTLqU6Nr dmVkIGZyZXNoIGxhYmVsZWQ gdGhlIHBhdGllbnQncyBuYW 3iTTQxE6Nbf4Nsg94txaExF mVyIGFuZCAiZXhwbGFudCIg aILvERK4QeFjmKO1ApcloTJ yAfUbR95xmFA6DVlfnWWxK9 JqlLGqPIMwIXGwDOqiOSB6o D40kNA4s7LoSiE2rLMhyQX1 vPW8HKNat8QeAUrbWNMuETF rm9gfi8owmmvxfT2fI6AhpL Hbg484OTXudqzuZZBeDM1VL D8LIBpweV6yhATwKUVEJ7TS KYRYRxhVIEOVX8fIB5vKW4a teLSfWEAKRbZRTZR9XOkfKW atXKGzYyK7DchcEKGbI1cDE WPtymidIEDiRPMxeo1yawOd wL43t2wjJGIhHUtwQUUer8T iVpWZdwNzFQO5gV9rbkBzmf Tno2UaiLf6jRLoJjQJlMejQ COok0UveMEeSe2mEKpht9Ua OFZ1UF6ukcZ5wQ0oMB3buFq uXHBhclxwYXIgUGlsYXIgQX JndWVsbGVzLCBQQSwgSFQgK DFNQ9WbRQXjik9= MICROSCOPIC d8xliSFwICEtyZS7RbQdLNH DESCRIPTION (test code yo5gfz0MlxFIubUKiTRnmvH = 3371) LsudMmav28cNZ3nN18QA3sD HRbJyQ5EVFshjT9Ehs0KTAf OOCqiGGgQ656w7nqz3yivyU mjYQ3oPfbVOAhVIGoYHxwFD MoYlBrUt79JKBxoyNmtw3jJ R8emQBdbA== [facility] [id number] 09:20:00Surgical Pathology Report Case: [id number] Authorizing Provider: Carmine Jean MD Collected: 10/22/2020 09:14 AM Ordering Location: [facility] Received: 10/22/2020 09:33 AM SERVICES Pathologist: Nakul Mccabe MD Specimen: Other, DBS BATTERY EXPLANT IMPLANTATION, PULSE GENERATOR DEEP BRAIN STIMULATOR STAGE II: - DEEP BRAIN STIMULATOR BATTERY IDENTIFIED (GROSS ONLY) Signing Pathologist Direct Phone Line: [phone] signed by Nakul Mccabe MD on 10/23/2020 at 9:20 [id number] disease ExplantReceived fresh labeled the patient's name, accession number and "explant" is a 6.5 x 4.9 x 1.2 cm metallic guerrero deep brain stimulator battery that displays the following inscription:INFINITY tmUPGRADEABLE TECHNOLOGYSN: [id number] gross photograph is taken. No sections are submitted. This case is for gross examination only.BOWEN Long, HT (ASCP)Not performed.SARS-CoV2/RT-PCR (Asymptomatic ONLY)2020-10-17 14:55:00 Test Item Value Reference Range Interpretation Comments SARS-COV2/RT-PCR Negative Not Detected, (test code = Negative, See 89207-7) external report for linked test SARS-COV-2 [facility] (test code = 53439-0) SHAZIA (test code = Negative result for [...] of the Act. Fact Sheet for Healthcare Providers:https://www.[employer]/sites/default/f lópez/product/documents/F act_Sheet_HC_Providers_L tqz_ZSOG-RmD-0.pdf Fact Sheet for Healthcare Patients:https://www.[employer]/sites/default/fi les/product/documents/Fa ct_Sheet_Patients_Lyra_S ARS-CoV-2.pdf Performing Laboratory:[facility]OV2/RT-PCR ([facility])2020-10-17 14:55:00 Test Item Value Reference Range Interpretation Comments SARS-COV2/RT-PCR (test Negative Not Detected, Negative, code = 1624062) See external report for linked test SARS-COV-[address] [facility] (test code = 7506280) Negative result for this test determines that [...] justifying the authorization of the emergency use ofin vitro diagnostic tests for detection and/or diagnosis of COVID-19 is terminated under Section 564(b)(2) of the Act or the EUA is revoked under Section 564(g) of the Act.Fact Sheet for Healthcare Prov iders:https://www.[employer]/sites/default/files/product/documents/Fact_Sheet_HC _Euqkxvclu_Fbbm_SAUX-GdL-7.pdfFact Sheet for Healthcare Patients:https://www.[employer]/sites/default/files/product/docume nts/Jsgs_Icedr_Lwjcoded_Fxri_MNYX-QoH-9.pdfPerforming Laboratory:[facility], [place] [address]Fret and screen, [id number] 11:17:00 Test Item Value Reference Range Interpretation Comments ABO/RH AUTOMATED (BEAKER) (test A POSITIVE code = 2260) Ab Scrn (test code = 890-4) NEGATIVE [facility] Vista[facility]inalysis w/Microscopic + Reflex to Culture 2020-10-17 10:59:00 Test Item Value Reference Range Interpretation Comments Color, UA (test code Yellow = 5778-6) Clarity, UA (test Clear code = 5767-9) Specific [place], UA 1.031 1.001-1.035 (test code = 5811-5) pH, UA (test code = 5.5 5.0-8.0 5803-2) Protein, UA (test 10 mg/dL Negative A code = 35476-7) Glucose, UA (test Negative Negative code = 365) Ketones, UA (test 10 mg/dL Negative A code = 2514-8) Bilirubin, UA (test Negative Negative code = 92416-1) Blood, UA (test code Negative Negative = 29269-8) Nitrite, UA (test Negative Negative code = 5802-4) Leukocytes, UA (test Small Negative A code = 5799-2) Urobilinogen, UA 0.2 mg/dL 0.2-1 (test code = 06264-5) RBC, UA (test code = <1 See_Comment [Autom ated 45182-0) message] The system which generated this result [...] 1 See_Comment [Automate d (test code = 52448-2) messag e] The system which generated this result transmitted reference range : /HPF. The reference range was not used to interpret this result as normal/abnormal . Specimen Source (test code = 2795) SHAZIA (test code = SHAZIA) Litigation Docket Manager ID - [auto]Litigation Docket Manager ID - tech Lab Interpretation Abnormal (test code = 75287-9) [facility]URINALYSIS W/ REFLEX URINE [id number] 10:59:00 Test Item Value Reference Range Interpretation [...] = 516) SOURCE(BEAKER) (test code = 2795) Litigation Docket Manager ID - [auto]Litigation Docket Manager ID - techBasic Metabolic [id number] 09:47:00 Test Item Value Reference Range Interpretation Comments Sodium (test code = 140 meq/L 087-063 7777-2) Potassium (test code = 4.0 meq/L 3.5-5.1 2823-3) Chloride (test code = 106 meq/L 98-107 2075-0) CO2 (test code = 27 meq/L 22-29 2028-9) BUN (test code = 33 mg/dL 7-21 H 3094-0) Creatinine (test code 0.74 mg/dL 0.57-1.25 = 2160-0) Glucose (test code = 85 mg/dL 70-105 2345-7) Calcium (test code = 9.2 mg/dL 8.4-10.2 84791-1) EGFR (test code = 79 mL/min/1.73 [place] [address]-3) NOT ACCURATE CREATININE CLEARANCE IN PREDICTING GLOMERULAR FILTRATION RATE . ESTIMATED GFR I S NOT APPLICABLE FOR DIALYSIS PATIENTS. SHAZIA (test code = SHAZIA) Litigation Docket Manager ID - PIAYA L Lab Interpretation Abnormal (test code = 80471-5) [facility] VistaBASIC METABOLIC [id number] 09:47:00 Test Item Value Reference Range Interpretation [...] 697) EGFR (BEAKER) (test 79 mL/min/1.73 ESTIMA JOSE GFR IS code = 1092) sq m NOT ACCURATE CREATININE CLEARANCE IN PREDICTING GLOMERULAR FILTRATION RATE . ESTIMATED GFR I S NOT APPLICABLE FOR DIALYSIS PATIMINDA PIMENTEL. Litigation Docket Manager ID - PIAYA LPT/[id number] 09:38:00 Test Item Value Reference Interpretation Comments Range Protime (test code = 13.8 See_Comment [Autom ated 5902-2) message] The system which generated this result transmitted reference range : 11.9 - 14.2 seconds. The reference range was not used to interpret this result as normal/abnormal . INR (test code = 1.09 See_Comment [Automated 9191-6) message] The system which generated this result transmitted reference range : <=5.90. The reference range was not used to interpret this result as normal/abnormal . PTT (test code = 37.0 See_Comment H [Automated 72339-6) message] The system which generated this result [...] valves. Lab Interpretation Abnormal (test code = 08311-9) [facility] VistaPT/[id number] 09:38:00 Test Item Value Reference Range Interpretation [...] is 2.5-3.5 for patients wiht mechanical heart valves.Prothrombin time/[id number] 09:37:00 Test Item Value Reference Interpretation Comments Range Protime (test code = 13.8 See_Comment [Autom ated 2592-2) message] The system which generated this result transmitted reference range : 11.9 - 14.2 seconds. The reference range was not used to interpret this result as normal/abnormal . INR (test code = 1.09 See_Comment [Automated 8551-6) message] The system which generated this result [...] valves. Lab Interpretation Normal (test code = 99725-3) [facility] VistaPROTHROMBIN TIME/[id number] 09:37:00 Test Item Value Reference Range Interpretation Comments PROTIME (BEAKER) 13.8 seconds 11.9-14.2 (test code = 759) INR (BEAKER) (test 1.09 See_Comment [Automat ed message] code = 370) The system [employer] generated this result transmitted ref erence range: <=5.90. The reference range was not used to int erpret this result as normal/abnormal . Effective 12/28/2018: PT Reference Range ChangeNew: 11.9-14.2 Previous: 11.7- 14.7RECOMMENDED COUMADIN/WARFARIN INR THERAPY RANGESSTANDARD DOSE: 2.0-3.0 Includes: PROPHYLAXIS for venous thrombosis, systemic embolization; TREATMENT for venous thrombosis and/or pulmonary embolus.HIGH RISK: Target INR is 2.5-3.5 for patients wiht mechanical heart valves.CBC with platelet count + automated [id number] 09:26:00 Test Item Value Reference Range Interpretation Comments WBC (test code = 6690-2) 5.7 See_Comment [A utomated message] The system [employer] generated this result transmitted ref erence range: 3.5 - 10 .5 K/L. The refe rence range was not u sed to interpret this result as normal/abnor mal. RBC (test code = 789-8) 4.09 See_Comment [Au tomated message] The system [employer] generated this result transmitted ref erence range: 3.93 - 5 .22 M/L. The refe rence range was not u sed to interpret this result as normal/abnor mal. MCHC (test code = 786-4) 30.9 See_Comment L [A utomated message] The system [employer] generated this result transmitted ref erence range: [...] code = 251 See_Comment [Aut omated message] 777-3) The system [employer] generated this result transmitted ref erence range: 150 - 45 0 K/CU MM. The referen ce range was not u sed to interpret this result as normal/abnor mal. MPV (test code = 10.1 fL 9.4-12.3 38428-8) nRBC (test code = 413) 0 See_Comment [Aut omated message] The system [employer] generated this result transmitted ref erence range: [...] See_Comment [Aut omated message] 670) The system [employer] generated this result transmitted ref erence range: 1.56 - 6 .13 K/L. The refe rence range was not u sed to interpret this result as normal/abnor mal. # Lymphs (test code = 1.19 See_Comment [Auto mated message] 414) The system [employer] generated this result transmitted ref erence range: 1.18 - 3 .74 K/L. The refe rence range was not u sed to interpret this result as normal/abnor mal. # Monos (test code = 0.52 See_Comment H [Autom ated message] 415) The system [employer] generated this result transmitted ref erence range: 0.24 - 0 .36 K/L. The refe rence range was not u sed to interpret this result as normal/abnor mal. # Eos (test code = 416) 0.13 See_Comment [Au tomated message] The system [employer] generated this result transmitted ref erence range: 0.04 - 0 .36 K/L. The refe rence range was not u sed to interpret this result as normal/abnor mal. # Baso (test code = 417) 0.03 See_Comment [A utomated message] The system [employer] generated this result transmitted ref erence range: 0.01 - 0 .08 K/L. The refe rence range was not u sed to interpret this result as normal/abnor mal. Immature 0 % 0-1 Granulocytes-Relative (test code = 2801) Lab Interpretation (test Abnormal code = 02700-1) [facility] W/PLT COUNT & AUTO [id number] 09:26:00 Test Item Value Reference Range Interpretation [...] (BEAKER) (test code = 2801) ECG 12 [id number] 18:30:18Interface, External Ris In - 09/04/2020 6:30 PM CSTVentricular Rate 72 BPMAtrial Rate 72 BPMP-R Interval 136 msQRS Duration 78 msQ-T Interval 402 msQTC Calculation(Juan Fzeasher) 440 msP Epps 27 degreesR Axis37 degreesT Epps 48 degreesNormal sinus rhythmNormal ECGWhen compared with ECG of 15-JUL-2020 11:09,T wave amplitude has decreased in Anterior leadsConfirmed by Ese TAYLOR BASANT ([id number]) on 09/04/2020 6:30:15 [facility] URINALYSIS W/ REFLEX URINE [id number] 06:23:00 Test Item Value Reference Range Interpretation [...] /LPF = 514) SOURCE(BEAKER) (test code = 8413) Litigation Docket Manager ID - [auto]Litigation Docket Manager ID - techSARS-COV2/RT-PCR ([facility]) 2020-09-03 21:00:00 Test Item Value Reference Range Interpretation Comments SARS-COV2/RT-PCR (test Negative Not Detected, Negative, code = 3473544) See external report for linked test SARS-COV-[address] [facility] (test code = 1859892) Negative result for this test determines that [...] justifying the authorization of the emergency use ofin vitro diagnostic tests for detection and/or diagnosis of COVID-19 is terminated under Section 564(b)(2) of the Act or the EUA is revoked under Section 564(g) of the Act.Testing was performed using the Greene SARS-CoV-2 assay.Fact Sheet for Healthcare Providers:https://www.[employer].greene/steven/RT_SAR Y-ZxS-5_QIA_Lkjx_Njwlv_77-632958.pdfFact Sheet for Healthcare Patients:https://www.molecular.greene/s al/AQ_QNCN-EiI-5_Eklkfkg_Boyc_Amway_VX_37-955923S7.pdfPerforming Laboratory:[address] [place] [address] RAD, CHEST, 2 [id number] 15:06:00Reason for exam:->parkinson's disease, pre-opCH[facility] : 1955 Sex: FFINAL REPORT TECHNIQUE: Frontal [...] abnormalities. Signed: Elissa Cardozo MDReport Verified Date/Time: 09/03 15:06:29 XR chest 2 [id number] 15:06:00Interface, External Ris In - 09/03/2020 3:08 [...] Elissa Cardozo MDReport Verified Date/Time: 09/03/2020 15:06:29 [facility], [id number] 12:52:00 Test Item Value Reference Range Interpretation Comments ABO Grouping (test code = 2588) A Rh Factor (test code = 2589) [facility]OL[facility] [id number] 12:21:00 Test Item Value Reference Range Interpretation [...] 697) EGFR (BEAKER) (test 77 mL/min/1.73 ESTIMA JOSE GFR IS code = 1092) sq m NOT ACCURATE CREATININE CLEARANCE IN PREDICTING GLOMERULAR FILTRATION RATE . ESTIMATED GFR I S NOT APPLICABLE FOR DIALYSIS PATIEN TS. Litigation Docket Manager ID - BRANDON FPT/[id number] 12:16:00 Test Item Value Reference Range Interpretation [...] is 2.5-3.5 for patients wiht mechanical heart valves.CBC W/PLT COUNT & AUTO [id number] 12:04:00 Test Item Value Reference Range Interpretation [...] 2801) FL, FLUORO, NON-SPECIFIC, UP TO 1 [id number] 15:12:52Reason for exam:- >[facility] 1955 Sex: FFluoroscopic unit utilized for a procedure performed in the OR. No interpretation was requested. Refer to the operative report for findings. Refer to PACS for patient radiation dose information.FL fluoro non-specific up to 1 [id number] 15:00:00 Interface, External Ris In - 07/16/2020 12:02 PM CSTFluoroscopic unit utilized for a procedure performed in the OR. No interpretation was requested. Refer to the operative report for findings. Refer toPACS for patient radiation dose information.[facility] [id number] 12:06:00 Test Item Value Reference Range Interpretation Comments Result (test code = See comment 6463-4) SHAZIA (test code = SHAZIA) <10,000 col/mL Gram Negative Rods<10,000 col/mL skin felipe [facility] [id number] 12:06:00 Test Item Value Reference Range Interpretation Comments CULTURE (BEAKER) (test code = See comment 1095) <10,000 col/mL Gram Negative Rods<10,000 col/mL skin floraSARS-COV2/RT-PCR ([facility])2020-07-10 23:24:00 Test Item Value Reference Range Interpretation Comments SARS-COV2/RT-PCR (test Negative Not Detected, Negative, code = 3715970) See external report for linked test SARS-COV-[address] [facility] (test code = 7156065) Negative result for this test determines that [...] justifying the authorization of the emergency use ofin vitro diagnostic tests for detection and/or diagnosis of COVID-19 is terminated under Section 564(b)(2) of the Act or the EUA is revoked under Section 564(g) of the Act.Fact Sheet for Healthcare Prov iders:https://www.[employer].finalsite/sites/default/files/product/documents/Fact_Sheet_HC _Svduqtsft_Dnpr_DVRQ-CeD-5.pdfFact Sheet for Healthcare Patients:https://www.[employer].finalsite/sites/default/files/product/docume nts/Tpqy_Mmunu_Echynwxe_Jxey_AHMT-XhA-1.pdfPerforming Laboratory:[facility].[place], [place] [address]TVLFK METABOLIC PANEL 2020-07-10 15:39:00 Test Item Value [...] 697) EGFR (BEAKER) (test 79 mL/min/1.73 ESTIMA JOSE GFR IS code = 1092) sq m NOT ACCURATE CREATININE CLEARANCE IN PREDICTING GLOMERULAR FILTRATION RATE . ESTIMATED GFR I S NOT APPLICABLE FOR DIALYSIS PATIEN TS. Litigation Docket Manager ID - BSCBC W/PLT COUNT & AUTO [id number] 15:25:00 Test Item Value Reference Range Interpretation [...] PERCENT (BEAKER) (test code = 2801) Urinalysis w/[id number] 13:38:00 Test Item Value Reference Range Interpretation Comments Color, UA (test code Yellow = 5778-6) Clarity, UA (test Clear code = 5767-9) Specific [place], UA 1.019 1.001-1.035 (test code = 5811-5) pH, UA (test code = 6.5 5.0-8.0 5803-2) Protein, UA (test Negative Negative code = 71123-8) Glucose, UA (test Negative Negative code = 365) Ketones, UA (test Trace Negative A code = 2514-8) Bilirubin, UA (test Negative Negative code = 57527-4) Blood, UA (test code Negative Negative = 62127-7) Nitrite, UA (test Negative Negative code = 5802-4) Leukocytes, UA (test Negative Negative code = 5799-2) Urobilinogen, UA 0.2 mg/dL 0.2-1 (test code = 65536-1) RBC, UA (test code = 0 See_Comment [Autom ated 40013-9) message] The system which generated this result transmit jose reference range : /HPF. The reference range was not used to interpret this result as normal/abnormal . WBC, UA (test code = 0 See_Comment [Autom ated 5821-4) message] The system which generated this result transmit jose reference range : /HPF. The reference range was not used to interpret this result as normal/abnormal . Mucus (test code = Rare 8247-9) Squam Epithel, UA <1 See_Comment [Automate d (test code = 38718-5) messag e] The system which generated this result transmit jose reference range : /HPF. The reference range was not used to interpret this result as normal/abnormal . Hyaline Casts, UA 2 See_Comment [Automate d (test code = 96797-4) messag e] The system which generated this result transmit jose reference range : /LPF. The reference range was not used to interpret this result as normal/abnormal . Specimen Source (test Urine, Voided code = 2795) SHAZIA (test code = SHAZIA) Litigation Docket Manager ID - [auto]Litigation Docket Manager ID - tech Lab Interpretation Abnormal (test code = 60858-4) [facility]/ [id number] 13:38:00 Test Item Value Reference Range Interpretation [...] 514) SOURCE(BEAKER) (test code = Urine, Voided 2795) Litigation Docket Manager ID - [auto]Litigation Docket Manager ID - techPOCT URINALYSIS [id number] 00:00:00 Test Item Value Reference Range Interpretation Comments COLOR UA (test code = 5778-6) Yellow YELLOW/STRAW CLARITY UA (test code = 08777-4) Clear CLEAR GLUCOSE UA (test code = 5792-7) Negative NEGATIVE BILIRUBIN UA (test code = 5770-3) Negative NEGATIVE KETONES UA (test code = 90548-9) Negative NEGATIVE SPECIFIC GRAVITY UA (test code = 1.005-1.035 5811-5) BLOOD UA (test code = 5794-3) Negative NEGATIVE PH UA (test code = 5803-2) 5-9 PROTEIN UA (test code = 5804-0) Negative NEGATIVE UROBILINOGEN UA (test code = 0.02 E.U/DL NORMAL MG/DL 5818-0) LEUKOCYTE ESTERASE UA (test code SMALL NEGATIVE = 5799-2) NITRITE UA (test code = 5802-4) Negative NEGATIVE REDUCING SUBSTANCES URINE (test code = 79527-5) [facility],US,[id number] 00:00:00 Test Item Value Reference Range Interpretation Comments PVR (test code = 6116) cc/ml [facility] [id number] 11:42:00Stealth protocol.FINAL REPORT CT head without contrast Stealth [...] visualized paranasal sinuses and mastoid air cells arewell aerated. The skull is intact. IMPRESSION: Deep brain stimulator electrode placement as discussed. Signed: Max Pace MDReport Verified Date/Time: 03/02/2018 11:42:17 Reading Location: [address] Neuro Reading Room ALYSIS W/ REFLEX URINE [id number] 18:46:00 Test Item Value Reference Range Interpretation [...] = 517) Rare SOURCE(BEAKER) (test code = 0166) BASIC METABOLIC [id number] 18:45:00 Test Item Value Reference Range Interpretation [...] 697) EGFR (BEAKER) (test 82 mL/min/1.73 ESTIMA JOSE GFR IS code = 1092) sq m NOT ACCURATE CREATININE CLEARANCE IN PREDICTING GLOMERULAR FILTRATION RATE . ESTIMATED GFR I S NOT APPLICABLE FOR DIALYSIS PATIEN TS. CBC W/PLT COUNT & AUTO [id number] 11:36:00 Test Item Value Reference Range Interpretation [...] (test code = 2801) CT, BRAIN, WITHOUT [id number] 15:11:00FINAL REPORT CT head without contrast 02/16/2018 [...] terminate in the anteromedial temporal lobes bilaterally. Thereis no hemorrhage, mass, hydrocephalus, or midline shift. There is small volume pneumocephalus without mass effect. There is no concerning subgaleal collection. There is chronic left sphenoid sinusitis. The remaining visualized paranasal sinuses and tympanomastoid cavities are well- aerated. The skull is intact. IMPRESSION: Bilateral deep brain stimulator electrode placement as discussed. Signed: Max Paceort Verified Date/Time: 02/16/2018 15:11:14 Reading Location: [facility] C013 Neuro Reading Room [place], CARE PROCESS MANAGER IN OR/30 MINUTE [id number] 14:08:00Reason for exam:- >Parkinsons DiseaseFINAL REPORT Fluoroscopy and CT stereotaxis 583 views intraoperative 02/16/2018 2:07 PM CLINICAL HISTORY: Instrument localization COMPARISON: None available IMPRESSION: Please correlate imaging report findings with the procedure note prepared by Dr. Martinez, as an intra-procedure imaging consultation was not requested. Reported fluoroscopy time: 19.2 seconds. Reported DLB: 715.16 mGycm. Signed: Max Pace Verified Date/Time: 02/16/2018 14:08:01 Reading Location: [address] Neuro Reading Room CT, BRAIN, WITHOUT [id number] 08:16:00Please perform stealth protocol with 1mm cutsFINAL [...] extra-axial collection, mass, hydrocephalus, or midline shift. There is generalized parenchymal volume loss. There is chronic left sphenoid sinusitis. The remaining visualized paranasal sinuses and tympanomastoid cavities are well-aerated. The orbits, face, and skull are unremarkable. IMPRESSION: Stealth neuronavigation study. Signed: Max Pace Verified Date/Time: 02/16/2018 08:16:15 Reading Location: [address] Neuro Reading Room MR, BRAIN, WITHOUT [id number] 15:03:00FINAL REPORT MRI Brain without contrast Clinical History: Parkinson's disease Technique: MRI of the brain utilizing the DBS protocol including diffusion tensor imaging, with axialT2, FLAIR, GRE, DWI; sagittal and coronal T1-weighted images. Comparisons: None Findings: There is no evidence of acute infarct or hemorrhage. There is mild periventricular and subcortical white matterT2 hyperintensity, which is nonspecific but compatible with chronic microvascular ischemic change. There is generalized parenchymal volume loss without hydrocephalus, midline shift, or apparent mass effect. There are no extra-axial fluid collections. The craniocervical junction is preserved. The majorintracranial flow-voids appear patent. There is an air-fluid level in the left sphenoid sinus. IMPRESSION: No evidence of acute infarct, hemorrhage, or hydrocephalus. Acute sphenoid sinusitis. Signed: Ryder Wilson MDReport Verified Date/Time: 02/04/2018 15:03:16 Reading Location: [facility] Radiology Reading Room BASI METABOLIC [id number] 13:00:00 Test Item Value Reference Range Interpretation [...] 697) EGFR (BEAKER) (test 64 mL/min/1.73 ESTIMA JOSE GFR IS code = 1092) sq m NOT ACCURATE CREATININE CLEARANCE IN PREDICTING GLOMERULAR FILTRATION RATE . ESTIMATED GFR I S NOT APPLICABLE FOR DIALYSIS PATIEN TS. URINALYSIS W/ REFLEX URINE [id number] 11:28:00 Test Item Value Reference Range Interpretation [...] (test code = 2795) RAD, CHEST, 2 [id number] 11:25:00Reason for Exam:->parkinson's disease FINAL REPORT TECHNIQUE: Frontal and lateral views of the chest. INDICATION: 63-year-old woman with Parkinson's disease. COMPARISON: None. FINDINGS: LINES/TUBES: None. LUNGS: The lungs are well inflated and clear. PLEURA: No pleural effusion or pneumothorax. HEART AND MEDIASTINUM: The cardiomediastinal silhouette is within normal limits. Atherosclerotic calcifications in the tortuous thoracic aorta. SOFT TISSUES AND BONES: Degenerative changes of the visualized spine. Soft tissues are unremarkable. IMPRESSION:No acute cardiopulmonary abnormalities. Signed: Douglas Cristobalepcarla Verified Date/Time: 02/04/2018 11:25:47 Reading Location: [address] Radiology Reading Room BASIC METABOLIC [id number] 11:10:00 Test Item Value Reference Range Interpretation [...] 697) EGFR (BEAKER) (test 62 mL/min/1.73 ESTIMA JOSE GFR IS code = 1092) sq m NOT ACCURATE CREATININE CLEARANCE IN PREDICTING GLOMERULAR FILTRATION RATE . ESTIMATED GFR I S NOT APPLICABLE FOR DIALYSIS PATIEN TS. PROTHROMBIN [id number] 10:46:00 Test Item Value Reference Range Interpretation Comments PROTIME (BEAKER) (test code = 13.3 seconds 11.7-14.7 759) INR (BEAKER) (test code = 370) 1.0 <=5.9 RECOMMENDED COUMADIN/WARFARIN INR THERAPY RANGESSTANDARD DOSE: 2.0 - 3.0 Includes: PROPHYLAXIS for venous thrombosis, systemic embolization; TREATMENT for venous thrombosis and/or pulmonary embolus.HIGH RISK: Target INR is 2.5-3.5 for patients with mechanical heart valves.[id number] 10:46:00 Test Item Value Reference Range Interpretation Comments PROTIME (BEAKER) (test code = 13.3 seconds 11.7-14.7 759) INR (BEAKER) (test code = 370) 1.0 <=5.9 PARTIAL THROMBOPLASTIN TIME 33.4 seconds 22.5-36.0 (BEAKER) (test code = 760) RECOMMENDED COUMADIN/WARFARIN INR THERAPY RANGESSTANDARD DOSE: 2.0 - 3.0 Includes: PROPHYLAXIS for venous thrombosis, systemic embolization; TREATMENT for venous thrombosis and/or pulmonary embolus.HIGH RISK: Target INR is 2.5-3.5 for patients with mechanical heart valves.CBC W/PLT COUNT & AUTO [id number] 10:38:00 Test Item Value Reference Range Interpretation [...] 417) IMMATURE GRANULOCYTES-RELATIVE 1 % 0-1 PERCENT (BIJU) (test code = 2801)
[2022-04-08] MEDS ORDERED: HYDROCODONE/APAP 10/325 TAB ONE (09:42)
--- NOTE | 2022-04-08 09:57 | RAD REPORT ---
EXAM DESCRIPTION: CT - CTHCSPWOC - 04/08/2022 9:43 am CLINICAL HISTORY: Trauma, head and neck injury. fall, head injury COMPARISON: <Comparisons> TECHNIQUE: Axial 5 mm thick images of the head were obtained. Axial 2 mm thick images of the cervical spine were obtained with sagittal and coronal reconstruction images generated and reviewed. All CT scans are performed using dose optimization technique as appropriate and may include automated exposure control or mA/KV adjustment according to patient size. FINDINGS: CT HEAD WITHOUT CONTRAST: No acute hemorrhage, hydrocephalus or extra-axial collection is identified.No areas of brain edema or midline shift. Bifrontal deep brain stimulators. The paranasal sinuses and mastoids are clear.The calvarium is intact. CT CERVICAL SPINE WITHOUT CONTRAST: No fracture or subluxation.No prevertebral soft tissues swelling is identified. IMPRESSION: No acute intracranial or cervical spine findings.
--- NOTE | 2022-04-08 10:01 | RAD REPORT ---
EXAM DESCRIPTION: RAD - Shoulder Left 2 View - 04/08/2022 9:56 am CLINICAL HISTORY: fall, shoulder injury COMPARISON: No comparisons FINDINGS/IMPRESSION: No acute fracture. No malalignment. No significant focal degenerative changes. Battery pack for the patient's deep brain stimulator in the left upper chest wall.
--- NOTE | 2022-04-08 10:04 | RAD REPORT ---
EXAM DESCRIPTION: RAD - Chest Single View - 04/08/2022 9:56 am CLINICAL HISTORY: fall COMPARISON: Chest Pa And Lat (2 Views) dated 07/04/2020 FINDINGS: Lines: None. Lungs: No evidence of edema or pneumonia. Pleural: No significant pleural effusions or pneumothorax. Cardiac: The heart size is within normal limits. Mediastinum: Within normal limits. Bones: Possible acute left sixth through eighth lateral rib fractures. Other: Deep brain stimulator battery pack overlies the left upper chest wall. IMPRESSION: No acute cardiopulmonary disease. Possible acute left sixth through eighth rib fractures . Correlate with point tenderness. No pneumothorax. .
--- NOTE | 2022-04-08 11:15 | RAD REPORT ---
EXAM DESCRIPTION: CT - Thorax Wo Con - 04/08/2022 10:58 am CLINICAL HISTORY: left sided rib pain COMPARISON: Chest Single View dated 04/08/2022 FINDINGS: Chest Wall: No suspicious thyroid nodules or pathologic lymphadenopathy. Left upper chest wall pacemaker. Lungs: No acute abnormality. Pleura: No significant effusions or pneumothorax. Mediastinum/colin: No pathologic lymphadenopathy. Pulmonary arteries/Aorta: Limited evaluation without contrast. No aortic aneurysm. Heart: No significant pericardial effusion. Normal heart size. Multi-vessel coronary artery disease. Upper abdomen: No acute abnormality. Bones: Left-sided rib fractures are remote. No acute rib fractures are identified. T9 compression def ormity as well as Schmorl's node without discrete fracture line to suggest an acute fracture. All CT scans are performed using dose optimization technique as appropriate and may include automated exposure control or mA/KV adjustment according to patient size. IMPRESSION: No acute findings within the chest. Rib fractures identified on the radiograph are remot e and healed.
--- NOTE | 2022-04-08 11:46 | ER ---
Nurse's Notes [facility] Name: Angela Mac Age: 67 yrs Sex: Female : 1955 Arrival Date: 04/08/2022 Time: 09:18 Bed Waiting Private MD: Moris Stephens C Diagnosis: Strain of unspecified muscle, fascia and tendon at shoulder and upper arm level, left arm Presentation: 04/08 09:26 Chief complaint: Patient states: I fell from my walker due to my Parkinson's and I hit bm7 my shoulder and I think it is broken. Coronavirus screen: At this time, the client does not indicate any symptoms associated with coronavirus-19. Ebola Screen: No symptoms or risks identified at this time. Initial Sepsis Screen: Does the patient meet any 2 criteria? No. Patient's initial sepsis screen is negative. Does the patient have a suspected source of infection? No. Patient's initial sepsis screen is negative. Risk Assessment: Do you want to hurt yourself or someone else? Patient reports no desire to harm self or others. Onset of symptoms was April 08, 2022. 09:26 Method Of Arrival: Wheelchair [facility] 09:26 Acuity: MARY 3 bm7 Triage Assessment: :27 General: Appears in no apparent distress. uncomfortable, Behavior is calm, cooperative. bm7 Pain: Complains of pain in left clavicle Pain does not radiate. EENT: No deficits noted. No signs and/or symptoms were reported regarding the EENT system. Neuro: Jean Baptiste Agitation-Sedation Scale (RASS): 0 - Alert and Calm Level of Consciousness is awake, alert, obeys commands, Oriented to person, place, time, situation, Gait is unsteady, Speech is normal. Cardiovascular: No deficits noted. Respiratory: No deficits noted. GI: No deficits noted. No signs and/or symptoms were reported involving the gastrointestinal system. : No deficits noted. No signs and/or symptoms were reported regarding the genitourinary system. Derm: No deficits noted. No signs and/or symptoms reported regarding the dermatologic system. Musculoskeletal: Range of motion: limited in left shoulder Bony deformity noted of left clavicle Reports pain in left clavicle. Historical: - Allergies: : No Known Allergies; bm7 - Home Meds: 09:27 Unable to obtain [Active]; bm7 - PMHx: 09:27 Hypertension; Parkinsons; bm7 - PSHx: 09:27 brain stimulator; bm7 - Immunization history:: Adult Immunizations up to date. - Social history:: Smoking status: Patient denies any tobacco usage or history of. Screenin:51 Abuse screen: Denies threats or abuse. Nutritional screening: No deficits noted. bm7 Tuberculosis screening: No symptoms or risk factors identified. Fall Risk None identified. Assessment: 11:51 Reassessment: No changes from previously documented assessment. bm7 Vital Signs: 09:24 BP 107 / 71; Pulse 90; Resp 16; Temp 98.6(TE); Pulse Ox 100% on R/A; Weight 63.5 kg bm7 (R); Height 5 ft. 7 in. (170.18 cm); Pain 10/10; 11:52 BP 122 / 68; Pulse 76; Resp 16; Temp 98.3(TE); Pulse Ox 100% on R/A; Pain 2/10; bm7 09:24 Body Mass Index 21.93 (63.50 kg, 170.18 cm) bm7 ED Course: 09:18 Patient arrived in ED. am2 09:19 Moris Stephens MD is Private Physician. am2 09:21 Philipp Casiano PA is [facility] jmm 09:21 Jeffery Simmons DO is Attending Physician. jmm 09:27 Triage completed. bm7 09:27 Arm band placed on right wrist. bm7 09:45 CT Head C Spine In Process Unspecified. EDMS 09:58 Shoulder Left (2 View) XRAY In Process Unspecified. EDMS 09:58 Chest Single View XRAY In Process Unspecified. EDMS 11:00 Thorax Wo Con In Process Unspecified. EDMS 11:45 Lucas Jaime MD is Referral Physician. jmm 11:51 Patient has correct armband on for positive identification. Adult w/ patient. bm7 11:51 No provider procedures requiring assistance completed. Patient did not have IV access bm7 during this emergency room visit. Administered Medications: 09:34 Drug: Alpine (HYDROcodone-acetaminophen) 10 mg-325 mg 1 tabs Route: PO; bm7 11:52 Follow up: Response: Pain is decreased bm7 Medication: 11:51 VIS not applicable for this client. bm7 Outcome: 11:45 Discharge ordered by . jessica 11:51 Discharged to home via wheelchair, with family. bm7 11:51 Condition: good 11:51 Discharge instructions given to patient, family, Instructed on discharge instructions, follow up and referral plans. medication usage, Demonstrated understanding of instructions, follow-up care, medications, Prescriptions given X 1. 11:53 Patient left the ED. bm7 Signatures: Dispatcher [employer] EDMS Philipp Casiano PA PA jmm Moreno, Amanda am2 McCarthy, Brittany, RN RN bm7
--- NOTE | 2022-04-08 11:46 | EDPHYS ---
Physician Documentation [facility] Name: Angela Mac Age: 67 yrs Sex: Female : 1955 Arrival Date: 04/08/2022 Time: 09:18 Bed Waiting Private MD: Moris Stephens C ED Physician Jeffery Simmons HPI: 04/08 09:29 This 67 yrs old Female presents to ER via Wheelchair with complaints of Fall Injury, jmm Shoulder Injury. 09:29 Details of fall: The patient fell from an upright position. Onset: The symptoms/episode jmm began/occurred acutely, today. Associated injuries: The patient sustained Left shoulder. Is a 67-year-old female with history of hypertension and Parkinson's the presents emerged department with complaints of left shoulder pain which developed after a fall from standing. Patient states she falls due to her Parkinson's occasionally. Also states hitting the left side of her head. Denies LOC, vomiting.. Historical: - Allergies: : No Known Allergies; bm7 - Home Meds: : Unable to obtain [Active]; bm7 - PMHx: 09:27 Hypertension; Parkinsons; bm7 - PSHx: 09:27 brain stimulator; bm7 - Immunization history:: Adult Immunizations up to date. - Social history:: Smoking status: Patient denies any tobacco usage or history of. ROS: 09:29 Constitutional: Negative for fever, chills, and weight loss, Cardiovascular: Negative jmm for chest pain, palpitations, and edema, Respiratory: Negative for shortness of breath, cough, wheezing, and pleuritic chest pain. 09:29 MS/extremity: Positive for injury or acute deformity, pain. 09:29 Neuro: Positive for headache. 09:29 All other systems are negative. Exam: 09:29 Constitutional: This is a well developed, well nourished patient who is awake, alert, jmm and in no acute distress. Head/Face: atraumatic. Eyes: EOMI, no conjunctival erythema appreciated ENT: Moist Mucus Membranes Neck: Trachea midline, Supple Chest/axilla: Normal chest wall appearance and motion. Cardiovascular: Regular rate and rhythm. No edema appreciated Respiratory: Normal respirations, no respiratory distress appreciated Abdomen/GI: Non distended Back: Normal ROM Skin: General appearance color normal 09:29 Musculoskeletal/extremity: Left shoulder anterior pain on palpation, pain is appreciated on abduction, full mold operator strength, full radial pulse, compartments are soft, neurovascular intact. 09:29 Skin: Appearance: Color: normal in color. 09:29 Neuro: Orientation: is normal, Mentation: is normal, Memory: is normal. 09:29 Psych: Behavior/mood is pleasant, cooperative. Vital Signs: 09:24 BP 107 / 71; Pulse 90; Resp 16; Temp 98.6(TE); Pulse Ox 100% on R/A; Weight 63.5 kg bm7 (R); Height 5 ft. 7 in. (170.18 cm); Pain 10/10; 11:52 BP 122 / 68; Pulse 76; Resp 16; Temp 98.3(TE); Pulse Ox 100% on R/A; Pain 2/10; bm7 09:24 Body Mass Index 21.93 (63.50 kg, 170.18 cm) bm7 MDM: 09:29 Patient medically screened. [facility] 11:45 Data reviewed: vital signs, nurses notes. Counseling: I had a detailed discussion with [facility] the patient and/or guardian regarding: the historical points, exam findings, and any diagnostic results supporting the discharge/admit diagnosis, radiology results, the need for outpatient follow up, to return to the emergency department if symptoms worsen or persist or if there are any questions or concerns that arise at home. 04/08 09:29 Order name: CT Head C Spine; Complete Time: 09:58 [facility] 04/08 09:29 Order name: Shoulder Left (2 View) XRAY; Complete Time: 10:04 [facility] 04/08 09:29 Order name: Chest Single View XRAY; Complete Time: 10:05 [facility] 04/08 10:46 Order name: Thorax Wo Con; Complete Time: 11:20 EDMS Administered Medications: 09:34 Drug: [place] (HYDROcodone-acetaminophen) 10 mg-325 mg 1 tabs Route: PO; bm7 11:52 Follow up: Response: Pain is decreased bm7 Disposition: 22:53 Co-signature as Attending Physician, Jeffery Simmons DO I agree with the assessment and ms3 plan of care. Disposition Summary: 04/08/22 11:45 Discharge Ordered Location: Home [facility] Condition: Stable [facility] Diagnosis - Strain of unspecified muscle, fascia and tendon at shoulder and upper arm level, jessica left arm Followup: [facility] - With: Lucas Jaime MD - When: 2 - 3 days - Reason: Recheck today's complaints, Continuance of care, Re-evaluation by your physician Discharge Instructions: - Discharge Summary Sheet [facility] - Shoulder Sprain [facility] Forms: - Medication Reconciliation Form [facility] - Thank You Letter [facility] - Antibiotic Education [facility] - Prescription Opioid Use [facility] Prescriptions: - orphenadrine citrate 100 mg Oral Tablet Sustained Release - take 1 tablet by ORAL route 2 times per day As needed; 20 tablet; Refills: 0, jm Product Selection Permitted Signatures: Dispatcher [employer] EDPhilipp Hernandez PA PA jmm Sims, Marcus, DO DO ms3 Mary Kate Saleem, RN RN bm7
[2022-04-08 12:27] VITALS: O2SAT 100
[2022-04-08 12:36] VITALS: BP 122/68; TEMP 98.3
== END 2022-04-08 11:53 | disposition home or self-care (01) ==
LOC: ER 09:11
DX: S46.912A Strain of unspecified muscle, fascia and tendon at shoulder and upper arm level, left arm, initial encounter (principal); I10 Essential (primary) hypertension; G20 Parkinson's disease
CPT/HCPCS: 70450; 71045; 71250; 72125; 99283